=== PATIENT | male | born 1970 | race Hispanic/Latino ===

== ENCOUNTER 2019-10-15 16:32 | Emergency (ER) | payer MEDICARE, SELFPAY ==
--- NOTE | ~2019-10-15 | CT_ITS ---
EXAMINATION: CT abdomen pelvis w con DATE: 10/15/2019 18:34 INDICATION: Mid and lower left-sided abdominal pain TECHNIQUE: Computed tomography (CT) of the abdomen and pelvis was performed with 100 mL Omnipaque-350 intravenous contrast. Automated exposure control and iterative reconstruction technique were employe d. The dose-length product was 803.61 mGy-cm. COMPARISON: 11/09/2012 FINDINGS: Lung bases are clear. Heart size is normal. No pericardial or pleural effusion. Small calcific locati on a left hepatic lobe consistent with old granulomatous disease. Gallbladder, spleen, pancreas, bila teral adrenal glands and kidneys are normal. Bladder is normal. Prostatic calcifications. Small fat-c ontaining left inguinal hernia. A few scattered colonic diverticula without adjacent inflammatory fredo nge to suggest diverticulitis. Small bowel and appendix are normal. No free intraperitoneal gas or fl uid. No pathologically enlarged abdominal or pelvic lymphadenopathy. There are bridging osteophytes a t multiple levels in the lower thoracic spine, consistent with diffuse idiopathic skeletal hyperostos is (DISH). IMPRESSION: 1. No acute intra-abdominal/pelvic process. 2. Small fat-containing left inguinal hernia. Reviewed, dictated and finalized at location A.
[2019-10-15 16:39] VITALS: BP 180/89; PULSE 78; RESP 20; TEMP 36.4; O2SAT 100
--- NOTE | 2019-10-15 17:07 | ED.ABDPAIN ---
HPI - Abdominal Pain General Chief Complaint: Abdominal Pain <YO Copeland Last Filed: 10/15/19 19:08> Stated Complaint: ABD PAIN <YO Copeland Last Filed: 10/15/19 19:08> Time Seen by Provider: 10/15/19 16:56 <YO Copeland Last Filed: 10/15/19 19:08> Source: patient <YO Copeland Last Filed: 10/15/19 19:08> Mode of arrival: ambulatory <YO Copeland Last Filed: 10/15/19 19:08> Limitations: no limitations <YO Copeland Last Filed: 10/15/19 19:08> History of Present Illness HPI narrative: Patient is a 49-year-old male who presents to emergency department for evaluation of periumbilical epigastric abdominal pain that is been present now for the last 4 days and intensified in nature denies similar occurrence in the past noted 1 episode of nausea and emesis and one loose stool during the course of the illness has not been seen for this complaint has taken his home hydrocodone with minimal improvement denies constipation or URI symptoms or any rectal bleeding or melena. <YO Copeland Last Filed: 10/15/19 19:08> Related Data Home Medications: Home Medications Medication Instructions Recorded Confirmed hydrocodone-acetaminophen tablet 10/15/19 metformin mg 10/15/19 <YO Copeland Last Filed: 10/15/19 19:08> Allergies/Adverse Reactions: Allergies Allergy/AdvReac Type Severity Reaction Status Date / Time No Known Allergies Allergy Verified 10/15/19 16:41 <YO Copeland Last Filed: 10/15/19 19:08> Review of Systems Review of Systems: All systems reviewed & are unremarkable except as noted in HPI and below <YO Copeland Last Filed: 10/15/19 19:08> [facility] Past Medical History Medical History: Medical History (Updated 10/16/19 @ 00:00 by Background John) Diabetes mellitus type 2 in nonobese <YO Copeland Last Filed: 10/15/19 19:08> Surgical History Surgical History: Surgical History History of orthopedic surgery <Israel Martinez PA-C - Last Filed: 10/15/19 19:08> Family History Family History: Family History (Updated 09/26/15 @ 23:19 by DOCTOR UNKNOWN) Sibling Family history of thyroid disease Family history of diabetes mellitus in first degree relative Father Family history of diabetes mellitus in first degree relative Mother Family history of thyroid disease <Israel Martinez PA-C - Last Filed: 10/15/19 19:08> Social History Social History: Social History Smoking status: Never smoker Alcohol intake: current Substance use type: marijuana <Israel Martinez PA-C - Last Filed: 10/15/19 19:08> Exam Narrative: Exam Narrative: GENERAL: Well-appearing, well-nourished, and in no acute distress. HEAD: Normocephalic, atraumatic. EYES: PERRLA and EOMI. ENT: Nares clear, no rhinorrhea or epistaxis. Mucous membranes moist. CHEST: Clear to auscultation. No respiratory distress. No wheezes rales or rhonchi HEART: Regular rate and rhythm. No murmur heard. Normal peripheral pulses. ABDOMEN: Soft, periumbilical abdominal tenderness with voluntary guarding r, nondistended EXTREMITIES: Normal range of motion. No edema. SKIN: Warm, dry, no rash. NEURO: No focal deficits. Alert and oriented x3. PSYCH: Normal mood and affect. <Israel Martinez PA-C - Last Filed: 10/15/19 19:08> Course Course Emergency Course: Patient in the room in no distress aware of case findings treatment plan and diagnosis agreeing to follow-up with primary care and gastroenterology given fluids and medications with relief afebrile nontoxic-appearing felt appropriate for discharge home <Israel Martinez PA-C - Last Filed: 10/15/19 19:08> Vital Signs Vital signs: Vital Signs Temperature
[2019-10-15] MEDS: SODIUM CHLORIDE 0.9% IV 1,000 ML 999 ML IV CONT (17:24)
[2019-10-15] MEDS: FAMOTIDINE 20 MG/2 ML VIAL IV PUSH (17:25)
[2019-10-15 17:43] LABS: Basophils Percent Auto 0.5 % (0.2-1.2); Eosinophils Absolute Auto 0.2 K/mm3 (0-0.3); Eosinophils Percent Auto 1.7 % (0-4.4); Hematocrit 46.3 % (42.0-52.0); Hemoglobin 16.3 g/dL (14.0-18.0); Immature Granulocyte Absolute 0.03 K/mm3 (0.00-0.031); Immature Granulocyte Percent A 0.3 % (0-0.5); Lymphocytes Absolute Auto 2.52 K/mm3 (0.9-3.2); Lymphocytes Percent Auto 29.3 % (18.3-44.2); Mean Corpuscular HGB Conc 35.2 g/dl (32-36); Mean Corpuscular Hemoglobin 29.6 pg (26-34); Mean Platelet Volume 10.6 fl (7.4-10.4); Monocytes Absolute Auto 0.6 K/mm3 (0.1-0.6); Monocytes Percent Auto 7.3 % (2.6-8.5); Neutrophils Absolute Auto 5.2 K/mm3 (1.3-6.7); Neutrophils Percent Auto 60.9 % (45.5-73.1); Platelet Count Result 216 k/mm3 (150-375); Red Blood Count 5.51 M/mm3 (4.6-6.20); Red Cell Distribution Width 12.2 % (11.5-14.5); White Blood Count 8.6 K/mm3 (4.5-10.0)
[2019-10-15 17:43] LABS: Add Urine Microscopic? YES; Appearance Urine Clear (Clear); Bilirubin Urine Negative (Negative); Blood Urine Negative (Negative); Color Urine Yellow (Yellow); Glucose Urine UA 3+ mg/dL (Negative); Ketones Urine Trace mg/dL (Negative); Leukocyte Esterase Ur Negative LEU/UL (Negative); Nitrate Urine Negative (Negative); Protein Urine Negative (Negative); RBC Urine 0-2 /hpf (0-2); Specific Grav Ur 1.027 (1.001-1.035); Urobilinogen Urine Negative mg/dL (<2.0); WBC Urine 0-3 /hpf
[2019-10-15 17:51] LABS: Alanine Aminotransferase 28 U/L (4-50); Albumin Level 4.6 g/dL (3.5-5.1); Alkaline Phosphatase 110 U/L (38-126); Anion Gap 10 mmol/L (8-16); Aspartate Amino Transferase 26 U/L (17-59); Bilirubin,Total 0.2 mg/dL (0.2-1.3); Blood Urea Nitrogen 17 mg/dL (9-20); Calcium 9.4 mg/dL (8.4-10.2); Carbon Dioxide 26 mmol/L (22-30); Chloride 99 mmol/L (98-107); Estimated CRCL calculation 113 ml/min; Estimated Glomerular Filt Rate > 60; Glucose 224 mg/dL (75-110); Lipase 63 U/L (23-300); Potassium 4.1 mmol/L (3.4-5.0); Sodium 135 mmol/L (137-145)
[2019-10-15 18:38] VITALS: BP 174/87; PULSE 71; RESP 18; O2SAT 100
[2019-10-15 19:26] VITALS: BP 147/89; PULSE 74; RESP 18; O2SAT 99
== END 2019-10-15 19:30 | disposition home or self-care (01) ==
PROVIDERS: Emergency Medicine Emergency Medical Services; Emergency Provider Emergency Medicine; PCP Internal Medicine
DX: R10.84 Generalized abdominal pain (principal); E11.9 Type 2 diabetes mellitus without complications; Z79.84 Long term (current) use of oral hypoglycemic drugs
CPT/HCPCS: 36415; 74177; 80053; 81001; 83690; 85025; 96365; 96375; 99284; J0131; J7030; Q9967

== ENCOUNTER 2019-10-18 16:18 | Emergency (ER) | payer MEDICARE, SELFPAY ==
[2019-10-18 16:20] VITALS: BP 196/106; PULSE 77; RESP 16; TEMP 36.4; O2SAT 100
[2019-10-18 16:34] LABS: Basophils Percent Auto 0.5 % (0.2-1.2); Eosinophils Absolute Auto 0.1 K/mm3 (0-0.3); Eosinophils Percent Auto 1.7 % (0-4.4); Hematocrit 43.1 % (42.0-52.0); Hemoglobin 15.2 g/dL (14.0-18.0); Immature Granulocyte Absolute 0.03 K/mm3 (0.00-0.031); Immature Granulocyte Percent A 0.4 % (0-0.5); Lymphocytes Absolute Auto 2.82 K/mm3 (0.9-3.2); Lymphocytes Percent Auto 34.3 % (18.3-44.2); Mean Corpuscular HGB Conc 35.3 g/dl (32-36); Mean Corpuscular Hemoglobin 29.6 pg (26-34); Mean Corpuscular Volume 83.9 fl (80-100); Mean Platelet Volume 10.9 fl (7.4-10.4); Monocytes Absolute Auto 0.6 K/mm3 (0.1-0.6); Monocytes Percent Auto 7.4 % (2.6-8.5); Neutrophils Absolute Auto 4.6 K/mm3 (1.3-6.7); Neutrophils Percent Auto 55.7 % (45.5-73.1); Platelet Count Result 190 k/mm3 (150-375); Red Blood Count 5.14 M/mm3 (4.6-6.20); Red Cell Distribution Width 11.9 % (11.5-14.5); White Blood Count 8.2 K/mm3 (4.5-10.0)
--- NOTE | 2019-10-18 16:44 | ECG_ITS ---
Measurements Intervals [place] Rate: 68 P: 4 [place]: 195 QRS: -27 QRSD: 108 T: -9 QT: 373 QTc: 398 Interpretive Statements SINUS RHYTHM INCOMPLETE RIGHT BUNDLE BRANCH BLOCK VOLTAGE CRITERIA FOR LVH BORDERLINE T WAVE ABNORMALITY- INFERIOR LEADS BORDERLINE ECG Electronically Signed On 10-18-2019 19:43:08 CDT by Sean Tellez D.O.
--- NOTE | 2019-10-18 16:46 | ED.ABDPAIN ---
HPI - Abdominal Pain General Chief Complaint: Abdominal Pain Stated Complaint: epigastric pain Time Seen by Provider: 10/18/19 16:35 Source: patient Mode of arrival: ambulatory Limitations: no limitations History of Present Illness HPI narrative: This patient is a 49 year old male who presents for evaluation of of epigastric abdominal pain. He reports constant epigastric abdominal pain for 1 week. He states he feels like there is a knot in his stomach. He has been having nausea and he had one episode of vomiting today. His reports fluctuating with diarrhea and constipation. He denies fever or chills. He was evaluated in ER 4 days ago for this symptom. He had labs and CT scan to evaluate symptoms. He was discharged home with mokanelalo , and he is suppose to follow up with Dr. Clayton. Related Data Home Medications Medication Instructions Recorded Confirmed hydrocodone-acetaminophen tablet 10/15/19 metformin mg 10/15/19 Allergies Allergy/AdvReac Type Severity Reaction Status Date / Time No Known Allergies Allergy Verified 10/18/19 16:27 Review of Systems Review of Systems: All systems reviewed & are unremarkable except as noted in HPI and below Constitutional: Constitutional: Denies chills and Denies fever(s) Cardiovascular: Cardiovascular: Denies chest pain and Denies rapid heart rate Respiratory: Respiratory: Denies cough Gastrointestinal: Gastrointestinal: Reports abdominal pain, Reports constipation, Reports diarrhea, Reports nausea and Reports vomiting PMFSH Past Medical History Medical History (Updated 10/18/19 @ 18:06 by Anjali York MD) Diabetes mellitus type 2 in nonobese Family History Family History (Updated 09/26/15 @ 23:19 by DOCTOR UNKNOWN) Sibling Family history of thyroid disease Family history of diabetes mellitus in first degree relative Father Family history of diabetes mellitus in first degree relative Mother Family history of thyroid disease Social History Social History Smoking status: Never smoker Alcohol intake: current Substance use type: marijuana Gender identity (if verbalized by the patient): Male Exam Narrative: Exam Narrative: GENERAL: Well-appearing, well-nourished, and in no acute distress. HEAD: Normocephalic, atraumatic EYES: EOMI, conjunctiva clear without discharge THROAT:Mucous membranes moist, Oropharynx normal without erythema, exudate, peritonsillar swelling or fluctuance NECK: Supple, without lymphadenopathy or mass RESPIRATORY: No respiratory distress, Airway patent, Respirations non-labored, Clear to auscultation without rales, rhonchi or wheeze HEART: Regular rate and rhythm. No murmur heard. Normal peripheral pulses. ABDOMEN: Soft, epigastric tenderness, nondistended, normal active bowel sounds. No masses. No rebound or guarding, No organomegaly. EXTREMITIES: No edema, normal strength with full range of motion. SKIN: Warm, dry, normal color without rash NEURO: Alert and oriented x3. CN 2-12 grossly intact. No focal deficits. PSYCH: Normal mood and affect. Course Reevaluation(s) Reevaluation #1: PAtient states he feels better. He has no abdominal pain. I discussed with patient that labs are unremarkable other than hyperglycemia. No AGAP to suggest DKA. His pain resolved after GI cocktail. I reviewed labs and CT from last ER visit/ CT was unremarkable. He was started on pepcid. Date: 10/18/19 Time: 18:01 Reevaluation #2: Nursing staff reports patient is complaining of nausea but he did not vomit. Will order reglan Date: 10/18/19 Time: 18:14 Vital Signs Vital signs: Vital Signs Temperature 97.5 F L 10/18/19 16:20 Pulse Rate 77 10/18/19 16:20 Respiratory Rate 16 10/18/19 16:20 Blood Pressure 196/106 H 10/18/19 16:20 Pulse Oximetry 100 10/18/19 16:20 Temperature 97.5 F L 10/18/19 16:20 Pulse Rate 61 10/18/19 19:15 Respir
[2019-10-18] MEDS: ONDANSETRON INJ 4 MG/2 ML VIAL IV PUSH (16:48)
[2019-10-18] MEDS: PANTOPRAZOLE SODIUM IV 40 MG VIAL IV PUSH (16:48)
[2019-10-18 16:49] LABS: Alanine Aminotransferase 29 U/L (4-50); Albumin Level 4.6 g/dL (3.5-5.1); Alkaline Phosphatase 111 U/L (38-126); Anion Gap 9 mmol/L (8-16); Aspartate Amino Transferase 25 U/L (17-59); Bilirubin,Total 0.5 mg/dL (0.2-1.3); Blood Urea Nitrogen 12 mg/dL (9-20); Calcium 9.3 mg/dL (8.4-10.2); Carbon Dioxide 27 mmol/L (22-30); Chloride 98 mmol/L (98-107); Estimated CRCL calculation 111 ml/min; Estimated Glomerular Filt Rate > 60; Glucose 334 mg/dL (75-110); Lipase 91 U/L (23-300); Potassium 4.2 mmol/L (3.4-5.0); Sodium 134 mmol/L (137-145)
[2019-10-18] MEDS: BELLADONNA ALK/PHENOB ELIX 10 ML, MAG HYDROX/ALUMINUM HYD/SIMETH 30 ML, LIDOCAINE HCL 2... PO (17:05)
[2019-10-18 17:36] LABS: Add Urine Microscopic? YES; Appearance Urine Clear (Clear); Bilirubin Urine Negative (Negative); Blood Urine Negative (Negative); Color Urine Straw (Yellow); Glucose Urine UA 3+ mg/dL (Negative); Ketones Urine Negative (Negative); Leukocyte Esterase Ur Negative LEU/UL (Negative); Nitrate Urine Negative (Negative); Protein Urine Negative (Negative); RBC Urine 0-2 /hpf (0-2); Specific Grav Ur 1.018 (1.001-1.035); Urobilinogen Urine Negative mg/dL (<2.0)
[2019-10-18] MEDS: METOCLOPRAMIDE HCL INJ 10 MG/2 ML VIAL IV PUSH (18:22)
--- NOTE | 2019-10-18 18:32 | PC.NURSE ---
when attempting to dc the pt, pt c/o of nausea, stating that he wants to puke provider aware, orders received for reglan and given to pt will reassess
[2019-10-18 18:42] LABS: Troponin I < 0.012 ng/mL (0.000-0.034)
[2019-10-18 19:15] VITALS: BP 122/72; PULSE 61; RESP 20; O2SAT 100
== END 2019-10-18 19:20 | disposition home or self-care (01) ==
PROVIDERS: Emergency Medicine; Emergency Provider General Practice; PCP Internal Medicine
DX: R10.13 Epigastric pain (principal); E11.65 Type 2 diabetes mellitus with hyperglycemia; Z79.84 Long term (current) use of oral hypoglycemic drugs; I45.10 Unspecified right bundle-branch block; R94.31 Abnormal electrocardiogram [ECG] [EKG]
CPT/HCPCS: 36415; 80053; 81001; 83690; 84484; 85025; 93005; 96374; 96375; 99284; A9270; C9113; J2405; J2765

== ENCOUNTER 2019-11-05 01:08 | Outpatient (CLI) | payer MEDICARE, SELFPAY ==
[2019-11-05 16:32] LABS: SARS-CoV-2 RNA PCR Negative
== END 2019-11-05 01:09 | disposition home or self-care (01) ==
LOC: ANHCOVIDDT 01:08
PROVIDERS: PCP Internal Medicine; Visit Provider Internal Medicine Gastroenterology
DX: Z01.812 Encounter for preprocedural laboratory examination (principal); Z20.828 Contact with and (suspected) exposure to other viral communicable diseases
CPT/HCPCS: 87635; C9803; U0003

== ENCOUNTER 2019-11-07 00:46 | Day surgery (SDC) | payer MEDICARE, SELFPAY ==
[2019-10-26 15:21] VITALS: BMI 32.3
[2019-11-07 11:10] VITALS: BP 153/94; PULSE 77; RESP 18; TEMP 36.7; O2SAT 100
[2019-11-07] MEDS: LACTATED RINGERS 1,000 ML 150 ML IV CONT (11:13)
[2019-11-07 11:25] LABS: Glucose Point of Care 140 (65-105)
--- NOTE | 2019-11-07 11:31 | WPDANESEPPF ---
Anes - Initial Pre Proc Eval Procedure: Operation Date: 11/07/19 13:00 Proposed Procedures p Esophagogastroduodenoscopy - Max George MD Date/Time: 11/07/19 11:31 Surgeon: Max George MD Pre Op Diagnosis: Abdomen Melinda Patient Data Age: 49 Gender: M Height: 5 ft 5 in Weight: 85.4 kg Last Vital Signs Temp 36.7 C 11/07/19 11:10 Pulse 77 11/07/19 11:10 Resp 18 11/07/19 11:10 BP 153/94 H 11/07/19 11:10 Pulse Ox 100 11/07/19 11:10 Allergies Allergy/AdvReac Type Severity Reaction Status Date / Time No Known Allergies Allergy Verified 10/26/19 15:17 Home Medications Medication Instructions Recorded Confirmed Type hydrocodone-acetaminophen 1 - 2 tablet PO QID PRN 10/15/19 10/26/19 History hyoscyamine sulfate [Levsin] 0.125 mg PO QID PRN #10 tablet 10/15/19 10/26/19 Rx metformin 1,000 mg PO BID 10/15/19 10/26/19 History Laboratory Tests 11/07/19 11:21 POC Capillary Glucose 140 mg/dl H mg/dl (65-105) Patient hx anesthesia problems: none Family hx anesthesia problems: none PMFSH Past Medical History Medical History Diabetes mellitus type 2 in nonobese Epigastric pain Nausea and vomiting in adult Surgical History Surgical History History of orthopedic surgery Family History Family History Sibling Family history of thyroid disease Family history of diabetes mellitus in first degree relative Father Family history of diabetes mellitus in first degree relative Mother Family history of thyroid disease Social History Social History Smoking status: Never smoker Second hand tobacco smoke exposure: No Alcohol intake: current Substance use: current Substance use type: marijuana and prescription drug Other substance usage details: MEDICAL MARIJUANA CARD- FOR SLEEP AT NIGHT Last use: NIGHTLY Living arrangements: with family Gender identity (if verbalized by the patient): Male Spiritual care concerns: No Anes - Eval Final PreProcedure Day of Procedure 11/07/19 11:31 Patient weight: obese Heart: regular rate and rhythm Lungs: decreased breath sounds Airway: Mallampati scale class II Neurological: alert and oriented Last oral intake: >/= 8 hours ASA classification: III Emergent: no Anesthetic plan: proceed Anesthesia type and monitoring: general GIVS and standard monitoring Informed Consent: The patient's anesthetic plan and its attendant risks and benefits were discussed with the patient/family/POA. Questions were solicited and answers provided to the satisfaction of the patient/family/POA.
--- NOTE | 2019-11-07 13:15 | PM.HPGS ---
History of Present Illness History of Present Illness Consent: Risks, benefits, and alternatives have been discussed and questions answered. Patient agrees to proceed with procedure. Chief complaint: Abdomen Melinda Narrative: Cam Hernandez is a 49 year old male with h/o DM here with nausea and intermittent abdominal pain Review of Systems Constitutional: Constitutional: Denies headache(s) and Denies weakness Eyes: Eyes: Denies blurry vision ENT: Reports Normal hearing present, Denies headache(s) and Denies neck pain Cardiovascular: Cardiovascular: Denies chest pain and Denies dyspnea Respiratory: Respiratory: Denies dyspnea Gastrointestinal: Gastrointestinal: Reports no additional gastrointestinal complaints Genitourinary: Genitourinary: Denies dysuria Musculoskeletal: Musculoskeletal: Denies neck pain Integumentary/Breasts: Skin/Breast: Denies dry skin Neurologic: Reports Normal hearing present, Denies headache(s) and Denies weakness Psychiatric: Psychiatric: Denies anxiety Endocrine: Endocrine: Denies change in body appearance Hematologic/Lymphatic: Hematologic/Lymphatic: Denies easy bleeding Allergic/Immunologic: Allergic/Immunologic: Denies urticaria PMFSH Past Medical History Medical History Diabetes mellitus type 2 in nonobese Epigastric pain Nausea and vomiting in adult Surgical History Surgical History History of orthopedic surgery Family History Family History Sibling Family history of thyroid disease Family history of diabetes mellitus in first degree relative Father Family history of diabetes mellitus in first degree relative Mother Family history of thyroid disease Social History Social History Smoking status: Never smoker Second hand tobacco smoke exposure: No Alcohol intake: current Substance use: current Substance use type: marijuana and prescription drug Other substance usage details: MEDICAL MARIJUANA CARD- FOR SLEEP AT NIGHT Last use: NIGHTLY Living arrangements: with family Gender identity (if verbalized by the patient): Male Spiritual care concerns: No Meds Home Medications and Allergies Home Medications Medication Instructions Recorded Confirmed Type hydrocodone-acetaminophen 1 - 2 tablet PO QID PRN 10/15/19 10/26/19 History hyoscyamine sulfate [Levsin] 0.125 mg PO QID PRN #10 tablet 10/15/19 10/26/19 Rx metformin 1,000 mg PO BID 10/15/19 10/26/19 History Allergies Allergy/AdvReac Type Severity Reaction Status Date / Time No Known Allergies Allergy Verified 10/26/19 15:17 Vital Signs Vital Signs - 24 hr 11/07/19 11:10 Temperature 98.1 F Pulse Rate 77 Respiratory Rate 18 Blood Pressure 153/94 H Pulse Oximetry 100 Exam Const: General: comfortable and no acute distress HENMT: General nose exam: Normal nares present Eyes: General: appearance normal, both eyes and all related structures Neck: Neck: no JVD Resp: Auscultation: clear to auscultation bilaterally Cardio: Rate: regular rate Rhythm: regular rhythm GI: Inspection: non-distended GI Palp: Yes Soft to palpation Skin: General skin exam: normal color Neuro: General: gait normal Speech: normal speech Extrem: General: normal to inspection Psych: Mental Status: mental status grossly normal Assessment and Plan Assessment and plan (1) Epigastric pain: Code(s): R10.13 - Epigastric pain Status: Acute Assessment and Plan: will assess with egd (2) Diabetes mellitus type 2 in nonobese: Code(s): E11.9 - Type 2 diabetes mellitus without complications Status: Acute (3) Nausea and vomiting in adult: Code(s): R11.2 - Nausea with vomiting, unspecified Status: Acute
[2019-11-07 13:35] VITALS: BP 143/97; PULSE 87; RESP 27; O2SAT 100
[2019-11-07 13:45] VITALS: BP 139/92; PULSE 78; RESP 30; O2SAT 98
[2019-11-07 13:55] VITALS: BP 141/91; PULSE 68; RESP 28; O2SAT 100
== END 2019-11-07 14:11 | disposition home or self-care (01) ==
PROVIDERS: PCP Internal Medicine; Visit Provider Internal Medicine Gastroenterology
PROC: 0DJ08ZZ Inspection of Upper Intestinal Tract, Via Natural or Artificial Opening Endoscopic (ICD-10-PCS; CPT 43235; principal; 2019-11-07 13:00)
DX: K29.50 Unspecified chronic gastritis without bleeding (principal); E11.9 Type 2 diabetes mellitus without complications; Z79.84 Long term (current) use of oral hypoglycemic drugs; E66.9 Obesity, unspecified; Z68.31 Body mass index [BMI] 31.0-31.9, adult
CPT/HCPCS: 43239; 88305; J2704; J7120

== ENCOUNTER 2019-12-17 00:39 | Outpatient (CLI) | payer MEDICARE, SELFPAY ==
[2019-12-17 17:41] LABS: SARS-CoV-2 RNA PCR Negative
== END 2019-12-17 00:40 | disposition home or self-care (01) ==
LOC: ANHCOVIDDT 00:39
PROVIDERS: PCP Internal Medicine; Visit Provider Surgery
DX: Z01.812 Encounter for preprocedural laboratory examination (principal); Z20.828 Contact with and (suspected) exposure to other viral communicable diseases
CPT/HCPCS: 87635; C9803; U0003

== ENCOUNTER 2019-12-17 08:04 | Outpatient (CLI) | payer MEDICARE, SELFPAY ==
[2019-12-17 08:49] LABS: Anion Gap 9 mmol/L (8-16); Blood Urea Nitrogen 17 mg/dL (9-20); Calcium 9.4 mg/dL (8.4-10.2); Carbon Dioxide 30 mmol/L (22-30); Chloride 100 mmol/L (98-107); Estimated Glomerular Filt Rate > 60; Glucose 212 mg/dL (75-110); Potassium 4.1 mmol/L (3.4-5.0); Sodium 139 mmol/L (137-145)
== END 2019-12-17 08:05 | disposition home or self-care (01) ==
PROVIDERS: Anesthesiology; PCP Internal Medicine; Visit Provider Surgery
DX: K40.90 Unilateral inguinal hernia, without obstruction or gangrene, not specified as recurrent (principal); E11.9 Type 2 diabetes mellitus without complications
CPT/HCPCS: 36415; 80048; 86850; 86900; 86901; 87635; C9803; U0003

== ENCOUNTER 2019-12-19 02:25 | Day surgery (SDC) | payer MEDICARE, SELFPAY ==
[2019-12-07 11:22] VITALS: BMI 33.3
--- NOTE | 2019-12-18 13:25 | P.PNAN_ITS ---
Anes - Initial Pre Proc Eval Procedure: Operation Date: 12/19/19 07:30 Proposed Procedures p Laparoscopic Left Inguinal Hernia Repair With Mesh, Davinci Assisted - Arik Castaneda DO Date/Time: 12/18/19 13:25 Surgeon: Arik Castaneda DO Pre Op Diagnosis: Left Inguinal Hernia Patient Data Age: 49 Gender: M Height: 1.63 m Weight: 88 kg Allergies Allergy/AdvReac Type Severity Reaction Status Date / Time No Known Allergies Allergy Verified 12/07/19 11:22 Home Medications Medication Instructions Recorded Confirmed Type hydrocodone-acetaminophen 1 - 2 tablet PO QID PRN 10/15/19 12/07/19 History metformin 1,000 mg PO BID 10/15/19 12/07/19 History ECG: Date of Service: 10/18/19 Procedure(s): CA 12 lead EKG Accession Number(s): [id number] cc: ~ Measurements Intervals [place] Rate: 68 P: 4 [place]: 195 QRS: -27 QRSD: 108 T: -9 QT: 373 QTc: 398 Interpretive Statements SINUS RHYTHM INCOMPLETE RIGHT BUNDLE BRANCH BLOCK VOLTAGE CRITERIA FOR LVH BORDERLINE T WAVE ABNORMALITY- INFERIOR LEADS BORDERLINE ECG Electronically Signed On 10-18-2019 19:43:08 CDT by Sean Tellez D.O. Dictated By: Sean Tellez DO 10/18/19 [id number] Patient hx anesthesia problems: none Family hx anesthesia problems: none PMFSH Past Medical History Medical History (Updated 12/18/19 @ 13:26 by Kevin Armijo MD) Chronic GERD Diabetes mellitus type 2 in nonobese Epigastric pain Nausea and vomiting in adult Obesity Surgical History Surgical History History of back surgery History of esophagogastroduodenoscopy (EGD) 11/07/19 History of orthopedic surgery Family History Family History Sibling Family history of thyroid disease Family history of diabetes mellitus in first degree relative Father Family history of diabetes mellitus in first degree relative Mother Family history of thyroid disease Social History Social History Smoking status: Never smoker Second hand tobacco smoke exposure: No Alcohol intake: current Drinks per week: 3 Substance use: current Substance use type: marijuana Other substance usage details: MEDICAL MARIJUANA CARD- FOR SLEEP AT NIGHT Last use: DAILY MARIJUANA USE Gender identity (if verbalized by the patient): Male Spiritual care concerns: No Anes - Eval Final PreProcedure Day of Procedure 12/18/19 13:25 Patient weight: obese Heart: regular rate and rhythm Lungs: clear to auscultation and normal air movement Airway: Mallampati scale class II Neurological: alert and oriented Last oral intake: >/= 8 hours ASA classification: III Emergent: no Anesthetic plan: proceed Anesthesia type and monitoring: general ETT Informed Consent: The patient's anesthetic plan and its attendant risks and benefits were discussed with the patient/family/POA. Questions were solicited and answers provided to the satisfaction of the patient/family/POA.
[2019-12-19] VITALS (9 sets, daily range): BP systolic 129–175; BP diastolic 77–95; PULSE 76–115; RESP 18–20; TEMP 36.2–36.6; O2SAT 98–100
[2019-12-19] MEDS: LACTATED RINGERS 1,000 ML 30 ML IV CONT ×2 (06:50→08:41)
[2019-12-19] MEDS: KETOROLAC 15 MG/ML VIAL (*BKC) IV PUSH (07:02)
[2019-12-19] MEDS: ACETAMINOPHEN 500 MG TABLET 1000 MG PO (07:02)
--- NOTE | 2019-12-19 07:10 | PM.IMHP ---
H&P: HPI History of Present Illness Date/Time: 12/19/19 07:10 Chief complaint: Left Inguinal Hernia Narrative: Cam Hernandez is a 49 year old male presents for left inguinal hernia repair. He has been experiencing pain with activity for several months. Review of Systems Review of Systems: All systems reviewed & are unremarkable except as noted in HPI and below Constitutional: Constitutional: Denies chills, Denies fever(s), Denies headache(s) and Denies weight loss Eyes: Eyes: Denies change in vision ENT: Denies dizziness, Denies headache(s), Denies neck mass and Denies throat swelling Cardiovascular: Cardiovascular: Denies chest pain, Denies lightheadedness and Denies dyspnea Respiratory: Respiratory: Denies cough, Denies dyspnea and Denies wheezing Gastrointestinal: Gastrointestinal: Denies abdominal pain, Denies change in bowel habits, Denies nausea and Denies vomiting Genitourinary: Genitourinary: Denies hematuria and Denies dysuria Musculoskeletal: Musculoskeletal: Reports as per HPI Integumentary/Breasts: Skin/Breast: Reports as per HPI Neurologic: Denies dizziness and Denies headache(s) Allergic/Immunologic: Allergic/Immunologic: Denies throat swelling and Denies wheezing PMFSH Past Medical History Medical History Chronic GERD Diabetes mellitus type 2 in nonobese Epigastric pain Nausea and vomiting in adult Obesity Surgical History Surgical History History of back surgery History of esophagogastroduodenoscopy (EGD) 11/07/19 History of orthopedic surgery Family History Family History Sibling Family history of thyroid disease Family history of diabetes mellitus in first degree relative Father Family history of diabetes mellitus in first degree relative Mother Family history of thyroid disease Social History Social History Smoking status: Never smoker Second hand tobacco smoke exposure: No Alcohol intake: current Drinks per week: 3 Substance use: current Substance use type: marijuana Other substance usage details: MEDICAL MARIJUANA CARD- FOR SLEEP AT NIGHT Last use: DAILY MARIJUANA USE Gender identity (if verbalized by the patient): Male Spiritual care concerns: No Meds Home Medications and Allergies Home Medications Medication Instructions Recorded Confirmed Type hydrocodone-acetaminophen 1 - 2 tablet PO QID PRN 10/15/19 12/07/19 History metformin 1,000 mg PO BID 10/15/19 12/07/19 History Allergies Allergy/AdvReac Type Severity Reaction Status Date / Time No Known Allergies Allergy Verified 12/07/19 11:22 Exam Const: General: no acute distress and alert Orientation/consciousness: patient oriented x3 HENMT: Head: normocephalic and atraumatic Ears: hearing grossly normal bilaterally General nose exam: Normal nares present Mouth: Yes Normal oral and palatal mucosa present Eyes: Periorbital: periorbital findings normal Sclera: sclerae normal EOM: EOMs intact bilaterally Neck: Neck: normal visual inspection, no lymphadenopathy and trachea midline Chest: Chest palpation & inspection: normal inspection of the chest Resp: Effort & Inspection: normal respiratory effort Auscultation: clear to auscultation bilaterally Cardio: Jugular venous distension: no JVD Rate: regular rate Rhythm: regular rhythm Heart sounds: S1 normal heart sound present and S2 normal heart sound present Peripheral pulses: Peripheral pulses 2+ throughout GI: Inspection: normal to inspection GI Palp: Yes Soft to palpation, No Tenderness to palpation present (GI), No Guarding due to palpation present (GI), Yes Hernia present (small reducible LIH) and No Rebound tenderness present Percussion: Yes normal to percussion Auscultation: normal bowel sounds
[2019-12-19 07:11] LABS: Glucose Point of Care 184 (65-105)
--- NOTE | 2019-12-19 07:12 | WPDHPUPDATE1 ---
History and Physical Update Update Date/Time: 12/19/19 07:12 History and Physical has been reviewed, including an updated exam of the patient. There are NO changes in the patient's condition. Risks, benefits, and alternatives have been discussed and questions answered. Patient agrees to proceed with procedure.
[2019-12-19] MEDS: ceFAZolin 2 GM/D5W 50 ML 2 GM/50 ML BAG IVPB (07:20)
[2019-12-19] MEDS: BUPIVACAINE/EPINEPHRINE 0.5% 10 ML VIAL 30 ML INFILTRATE (08:01)
--- NOTE | 2019-12-19 08:31 | PM.PROC ---
Procedure Note - Detailed Date of procedure: 12/19/19 Pre-op diagnosis: Left Inguinal Hernia Post-op diagnosis: same (Indirect LIH) Procedure performed: Laparoscopic left inguinal hernia repair with Progrip mesh, da Benito assisted Description of procedure: Procedure as well as risks, benefits, and alternatives were discussed with the patient. Written consent was obtained and placed in chart prior to procedure. Patient was brought back to surgical suite. He was placed supine on operating table. Time-out was done to confirm patient and procedure. He was then intubated by Anesthesia Department. His abdomen was prepped and draped in sterile fashion using chlorhexidine prep. 0.5% bupivacaine with epinephrine was infiltrated at each location for incision. An 8 mm incision was made in the left lateral abdomen, and a 5 mm Optiview trocar was advanced through the abdominal layers under direct visualization. Once inside the abdominal cavity, carbon dioxide insufflation was used to create a pneumoperitoneum. A camera was inserted and the abdominal cavity was inspected. The patient was placed in slight Trendelenburg position. An 8 millimeter incision was made on the right lateral abdomen and an 8 millimeter trocar was inserted under direct visualization. Another 8 millimeter incision was made just superior to the umbilicus and an 8 millimeter trocar was inserted under direct visualization. The 5 mm port was then removed and this was replaced with another 8 mm robotic port. The robotic arms were brought up to the patient's bedside and secured to the ports. The camera and instruments were inserted. I then moved over to the robotic console and took control of the camera and instruments. After careful inspection of the abdominal cavity, I began scoring the peritoneum along the left lower quadrant using scissors with electrocautery. The preperitoneal plane was entered and this was carefully dissected caudally along the inferior epigastric vessels. Careful dissection with scissors with electrocautery and blunt dissection was used to continue this dissection. I dissected far enough laterally to allow for mesh placement, and also dissected medially to identify the pubic arch and Ant's ligament. The hernia sac was identified and carefully dissected posteriorly. The cord contents were also identified and the peritoneum was carefully dissected far enough posteriorly to allow for mesh placement. Once an adequate pocket was created, I then placed the mesh within the preperitoneal pocket and carefully unfolded it. The mesh was centered on the hernia defect with adequate overlap circumferentially. The inferior edge of the mesh was inspected to ensure that it was far enough away from the peritoneal edge. The mesh appeared in proper position overlying the entire myopectineal orifice. The peritoneum was then closed over the mesh using a 3-0 V-lock running absorbable suture. The robotic instruments were removed. The robotic arms were disengaged from the ports and moved away from the bedside. The patient was flattened out in bed, the ports were removed under direct visualization, and the pneumoperitoneum was released. The skin of the incisions was approximated using 4-0 Monocryl subcuticular suture, and Exofin glue was applied on top. The patient was awakened from anesthesia, extubated, and transferred to recovery. Implants: Progrip Mesh 10cm x 15cm Anesthesia: GETA and local (0.5% bupivicaine with epi) Surgeon: Arik Castaneda DO Estimated blood loss (mL): 5 Drains: No Packing: No Pathology: none sent Complications: No immediate complications Condition: stable Disposition: same day Findings: 49 y/o male presents with complaints of mid-left sided abdominal pain.He has gone to ER twice. He reports it as feeling there is a knot in his stomach. This has been associated with nausea & vomiting. CT abdomen/pelvis was performed at his first ER visit which showed small fat c
[2019-12-19 08:51] LABS: Glucose Point of Care 178 (65-105)
[2019-12-19] MEDS: fentaNYL CITRATE INJ (*CRX) 100 MCG/2 ML VIAL 25 MCG IV PUSH ×4 (08:55→09:06)
[2019-12-19] MEDS: HYDROmorphone HCL INJ (*CRX) 1 MG/ML SYR 0.25 MG IV PUSH ×4 (09:13→09:30)
[2019-12-19] MEDS: oxyCODONE HCL (*CRX) 5 MG TAB IR PO (10:21)
== END 2019-12-19 11:02 | disposition home or self-care (01) ==
PROVIDERS: PCP Internal Medicine; Visit Provider Surgery
PROC: 8E0Y4CZ Robotic Assisted Procedure of Lower Extremity, Percutaneous Endoscopic Approach (ICD-10-PCS; CPT 49650; principal; 2019-12-19 07:30)
DX: K40.90 Unilateral inguinal hernia, without obstruction or gangrene, not specified as recurrent (principal); E11.9 Type 2 diabetes mellitus without complications; K21.9 Gastro-esophageal reflux disease without esophagitis; E66.9 Obesity, unspecified; Z68.32 Body mass index [BMI] 32.0-32.9, adult; F12.90 Cannabis use, unspecified, uncomplicated; Z79.84 Long term (current) use of oral hypoglycemic drugs
CPT/HCPCS: 49650; S2900; A9270; C1781; J0330; J0690; J1100; J1170; J1885; J2250; J2405; J2704; J2710; J3010; J7030; J7120

== ENCOUNTER 2020-01-14 21:16 | Emergency (ER) | payer MEDICARE, SELFPAY ==
--- NOTE | ~2020-01-14 | XR_ITS ---
EXAMINATION: XR shoulder LT min 2V DATE: 01/14/2020 21:42 INDICATION: Left anterior shoulder pain and swelling post fall TECHNIQUE: AP, AP oblique and transscapular Y views of the left shoulder were obtained. COMPARISON: 06/06/2018 FINDINGS: Again seen is widening of the acromioclavicular joint space likely related to prior distal clavicle r esection. Alignment is otherwise normal. No fracture. Mild glenohumeral osteoarthritis. There is some hypertrophic change along the greater tuberosity. Soft tissues are unremarkable. Visualized portions of the lungs are clear. IMPRESSION: Chronic widening of the left acromioclavicular joint space likely related to prior distal clavicle re section. No acute osseous abnormality. Reviewed, dictated and finalized at [facility]. 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 No acute osseous abnormality.
[2020-01-14 21:24] VITALS: BP 187/82; PULSE 83; RESP 18; TEMP 36.2; O2SAT 100
--- NOTE | 2020-01-14 21:26 | ED.UPPEXIN ---
HPI - Extremity Injury (Upper) General Chief Complaint: Extremity Injury, Upper Stated Complaint: fall/l shoulder injury Time Seen by Provider: 01/14/20 21:26 Source: patient Mode of arrival: ambulatory Limitations: no limitations History of Present Illness HPI narrative: Patient is a 49-year-old male who presents for evaluation of left upper extremity injury. Patient reportedly was going down a flight of steps, when he slipped, falling onto concrete steps. Injuring his left shoulder and left elbow. Patient has a history of bilateral rotator cuff surgery several years ago. He denies any history of previous injury otherwise. He reports dull, aching left upper shoulder pain. He is able to move his elbow without any difficulty as well as his left wrist. Patient is right-hand dominant. He denies any numbness or weakness. Pain is moderate, aggravated with motion. Patient denies any head trauma or loss of consciousness. Related Data Home Medications Medication Instructions Recorded Confirmed hydrocodone-acetaminophen 1 - 2 tablet PO QID PRN 10/15/19 12/19/19 metformin 1,000 mg PO BID 10/15/19 12/19/19 amitriptyline 25 mg PO HS 01/14/20 01/14/20 Allergies Allergy/AdvReac Type Severity Reaction Status Date / Time No Known Allergies Allergy Verified 01/14/20 21:26 Review of Systems Review of Systems: Narrative: CONSTITUTIONAL: Denies fever CARDIOVASCULAR: Denies chest pain RESPIRATORY: Denies cough or dyspnea. GASTROINTESTINAL: Denies abdominal pain SKIN: Denies rash MUSCULOSKELETAL: Denies back pain, reports left shoulder pain NEUROLOGIC: Denies headache PMFSH Past Medical History Medical History Chronic GERD Diabetes mellitus type 2 in nonobese Epigastric pain Nausea and vomiting in adult Obesity Surgical History Surgical History History of back surgery History of esophagogastroduodenoscopy (EGD) 11/07/19 History of orthopedic surgery Family History Family History Sibling Family history of thyroid disease Family history of diabetes mellitus in first degree relative Father Family history of diabetes mellitus in first degree relative Mother Family history of thyroid disease Social History Social History Smoking status: Never smoker Second hand tobacco smoke exposure: No Alcohol intake: current Drinks per week: 3 Substance use: current Substance use type: marijuana Other substance usage details: MEDICAL MARIJUANA CARD- FOR SLEEP AT NIGHT Last use: DAILY MARIJUANA USE Gender identity (if verbalized by the patient): Male Spiritual care concerns: No Exam Narrative: Exam Narrative: GENERAL: Awake, alert, conversant HEAD: Normocephalic, atraumatic. EYES: PERRLA and EOMI. ENT: Nares clear, no rhinorrhea or epistaxis. Mucous membranes moist. NECK: Supple. No cervical spine tenderness. CHEST: No respiratory distress, breathing even and non labored HEART: Regular rate, sinus rhythm ABDOMEN:Non distended, non tender EXTREMITIES: Decreased range of motion in the left shoulder due to pain. Tenderness to the anterior bicipital groove. No tenderness over the clavicle. No obvious deformity. No squaring off of the shoulder. Full extension and flexion of the left elbow without limitation. No deformity. Full range of motion of the left wrist without pain, limitation or deformity. Radial pulse 2+. Intact sensation median, ulnar, radial nerve distribution. SKIN: Warm, dry, no rash. NEURO:No focal deficits. Alert and oriented x3 Course Vital Signs Vital signs: Vital Signs Temperature 36.2 C L 01/14/20 21:24 Pulse Rate 83 01/14/20 21:24 Respiratory Rate 18 01/14/20 21:24 Blood Pressure 187/82 H 01/14/20 21:24 Pulse Oximetry 100 01/14/20 21:24 [place]
[2020-01-14] MEDS: ACETAMINOPHEN 500 MG TABLET 1000 MG PO (22:30)
== END 2020-01-14 22:34 | disposition home or self-care (01) ==
PROVIDERS: Emergency Provider Emergency Medicine; PCP Internal Medicine
DX: S46.912A Strain of unspecified muscle, fascia and tendon at shoulder and upper arm level, left arm, initial encounter (principal); S43.102A Unspecified dislocation of left acromioclavicular joint, initial encounter; K21.9 Gastro-esophageal reflux disease without esophagitis; E11.9 Type 2 diabetes mellitus without complications; W10.9XXA Fall (on) (from) unspecified stairs and steps, initial encounter; Z79.84 Long term (current) use of oral hypoglycemic drugs
CPT/HCPCS: 73030; 99283; A9270

== ENCOUNTER 2020-01-29 08:08 | Outpatient (CLI) | payer MEDICARE, SELFPAY ==
--- NOTE | ~2020-01-29 | MR_ITS ---
EXAMINATION: MR shoulder LT wo con DATE: 01/29/2020 09:30 INDICATION: Left shoulder pain. Strain of muscle and tendon of the rotator cuff of left shoulder, ini tial encounter. TECHNIQUE: Magnetic resonance imaging (MRI) of the left shoulder was performed without intravenous co ntrast. Sequences included axial PD-weighted FS FSE, coronal oblique PD-weighted FS FSE and T2-weight ed FS FSE, and sagittal oblique T2-weighted FS FSE and T1-weighted FSE. COMPARISON: Left shoulder radiographs 01/14/2020 FINDINGS: Coracoacromial arch: The acromion undersurface is curved in morphology (type II). Subacromial spurring is noted. There are likely changes of distal clavicle resection. There is moderate subacromial/subdeltoid bursitis. Rotator cuff: There is a full-thickness tear of anterior supraspinatus tendon measuring 8 mm anterior to posterior by 6 mm proximal to distal. There is mild infraspinatus tendinopathy. Teres minor tendon is normal. T here is mild subscapularis tendinopathy. There is no asymmetric fatty atrophy of the rotator cuff mus brayan bellies. Biceps tendon and glenoid labrum: Biceps tendon is in bicipital groove. There is mild intra-articular biceps tendinopathy. There is deg eneration of the glenoid labrum without well-defined tear. Fluid: There is a small glenohumeral joint effusion. Bones/cartilage: There is cartilage surface irregularity of glenoid and humeral head. IMPRESSION: 1. Full-thickness rotator cuff tear. 2. Mild glenohumeral joint chondrosis. 3. Small glenohumeral joint effusion and moderate subacromial/subdeltoid bursitis. 4. Mild intra-articular biceps tendinopathy. Reviewed, dictated and finalized at location A. TRONIC DIE MAKER IMPRESSION: 1. Full-thickness rotator cuff tear. 2. Mild glenohumeral joint chondrosis. 3. Small glenohumeral joint effusion and moderate subacromial/subdeltoid bursit is. 4. Mild intra-articular biceps tendinopathy.
== END 2020-01-29 08:09 ==
PROVIDERS: Visit Provider Orthopaedic Surgery
DX: S46.012A Strain of muscle(s) and tendon(s) of the rotator cuff of left shoulder, initial encounter (principal); X58.XXXA Exposure to other specified factors, initial encounter; M25.412 Effusion, left shoulder
CPT/HCPCS: 73221

== ENCOUNTER 2020-07-23 08:51 | Emergency (ER) | payer MEDICARE, SELFPAY ==
--- NOTE | ~2020-07-23 | CT_ITS ---
EXAMINATION: CT abdomen pelvis w con DATE: 07/23/2020 10:57 INDICATION: Low abdominal pain. TECHNIQUE: Computed tomography (CT) of the abdomen and pelvis was performed with 100 mL Omnipaque 350 intravenous contrast. Automated exposure control and iterative reconstruction technique were employe d. The dose-length product was 754.17 mGy-cm. COMPARISON: CT abdomen and pelvis 10/15/2019 FINDINGS: The visualized portions of the lung bases demonstrate minimal atelectasis. A calcified righ t lung nodule and calcified right hilar lymph nodes are consistent with old granulomatous disease. No pleural effusion. The heart size is normal. No pericardial effusion. There is diffuse hepatic steato sis. The gallbladder, spleen, pancreas, adrenal glands, and kidneys are normal. The bladder is disten ded. The appendix is normal. There are no dilated loops of bowel. There are no pathologically enlarge d lymph nodes. There is no free intraperitoneal fluid. There are changes of left inguinal hernia repa ir. There is mild thoracolumbar spondylosis. There is mild osteoarthritis of the hips. IMPRESSION: 1. Diffuse hepatic steatosis. Reviewed, dictated and finalized at location B.
[2020-07-23 09:12] VITALS: BP 155/99; PULSE 76; RESP 18; TEMP 36.8; O2SAT 98
[2020-07-23 09:20] LABS: Add Urine Microscopic? YES; Appearance Urine Clear (Clear); Bilirubin Urine Negative (Negative); Blood Urine 1+ (Negative); Color Urine Yellow (Yellow); Glucose Urine UA 3+ mg/dL (Negative); Ketones Urine 1+ mg/dL (Negative); Leukocyte Esterase Ur Negative LEU/UL (Negative); Mucus Urine Rare /lpf; Nitrate Urine Negative (Negative); Protein Urine Negative (Negative); Urobilinogen Urine Negative mg/dL (<2.0); WBC Urine 0-3 /hpf
[2020-07-23 09:22] LABS: Basophils Percent Auto 0.5 % (0.2-1.2); Eosinophils Absolute Auto 0.1 K/mm3 (0-0.3); Eosinophils Percent Auto 1.7 % (0-4.4); Hematocrit 47.8 % (42.0-52.0); Hemoglobin 16.3 g/dL (14.0-18.0); Immature Granulocyte Absolute 0.02 K/mm3 (0.00-0.031); Immature Granulocyte Percent A 0.3 % (0-0.5); Immature Platelet Fraction Pct 12.9 % (0.9-11.2); Lymphocytes Absolute Auto 2.21 K/mm3 (0.9-3.2); Lymphocytes Percent Auto 33.8 % (18.3-44.2); Mean Corpuscular HGB Conc 34.1 g/dl (32-36); Mean Corpuscular Hemoglobin 29.1 pg (26-34); Mean Corpuscular Volume 85.4 fl (80-100); Mean Platelet Volume 11.6 fl (7.4-10.4); Monocytes Absolute Auto 0.5 K/mm3 (0.1-0.6); Monocytes Percent Auto 7.8 % (2.6-8.5); Neutrophils Absolute Auto 3.7 K/mm3 (1.3-6.7); Neutrophils Percent Auto 55.9 % (45.5-73.1); Platelet Count Result 110 k/mm3 (150-375); Red Cell Distribution Width 12.1 % (11.5-14.5); White Blood Count 6.5 K/mm3 (4.5-10.0)
--- NOTE | 2020-07-23 09:39 | ED.ABDPAIN ---
HPI - Abdominal Pain General Chief Complaint: Abdominal Pain Stated Complaint: abd pain Time Seen by Provider: 07/23/20 09:13 Source: patient Mode of arrival: ambulatory Limitations: no limitations History of Present Illness HPI narrative: This is a 50-year-old male that presents the emergency department for right lower quadrant abdominal pain. Present over the last week. Reports it is burning in nature. It is worse when he moves or walks. Reports sometimes he feels a lump in the area. Reports he recently had left inguinal hernia surgery last year. Denies fever, vomiting, dysuria, hematuria. Related Data Home Medications Medication Instructions Recorded Confirmed hydrocodone-acetaminophen 1 - 2 tablet PO QID PRN 10/15/19 01/23/20 metformin 1,000 mg PO BID 10/15/19 01/23/20 amitriptyline 25 mg PO HS 01/14/20 01/23/20 Allergies Allergy/AdvReac Type Severity Reaction Status Date / Time No Known Allergies Allergy Verified 01/23/20 09:37 Review of Systems Review of Systems: Narrative: CONSTITUTIONAL: Denies fever GASTROINTESTINAL: Reports abdominal pain. Denies nausea, vomiting, or diarrhea. GENITOURINARY: Denies dysuria or hematuria. All systems reviewed & are unremarkable except as noted in HPI and below PMFSH Past Medical History Medical History (Updated 07/23/20 @ 11:37 by Elaien Miller PA-C) Chronic GERD Complete rotator cuff tear of left shoulder Diabetes mellitus type 2 in nonobese Epigastric pain Nausea and vomiting in adult Obesity Surgical History Surgical History (Updated 01/23/20 @ 11:05 by Iva Johnson, RT(R)) History of back surgery History of esophagogastroduodenoscopy (EGD) 11/07/19 History of hernia repair History of orthopedic surgery Family History Family History Sibling Family history of thyroid disease Family history of diabetes mellitus in first degree relative Father Family history of diabetes mellitus in first degree relative Mother Family history of thyroid disease Social History Social History Smoking status: Never smoker Second hand tobacco smoke exposure: No Alcohol intake: current Drinks per week: 3 Substance use: current Substance use type: marijuana Other substance usage details: MEDICAL MARIJUANA CARD- FOR SLEEP AT NIGHT Last use: DAILY MARIJUANA USE Gender identity (if verbalized by the patient): Male Spiritual care concerns: No Exam Narrative: Exam Narrative: GENERAL: Well-appearing, obese, and in no acute distress. HEAD: Normocephalic, atraumatic. EYES: EOMI. ENT: Mucous membranes moist. Oropharynx without tonsillar hypertrophy exudate or other lesions. CHEST: Clear to auscultation. No respiratory distress. No wheezes rales or rhonchi HEART: Regular rate and rhythm. No murmur heard. Normal peripheral pulses. ABDOMEN: Soft, nondistended, normal active bowel sounds. Mild tenderness to palpation in the right lower quadrant, without guarding. No CVA tenderness EXTREMITIES: Normal range of motion. No edema. SKIN: Warm, dry, no rash. NEURO: No focal deficits. Alert and oriented x3. PSYCH: Normal mood and affect Course Vital Signs Vital signs: Vital Signs Temperature 98.3 F 07/23/20 09:12 Pulse Rate 76 07/23/20 09:12 Respiratory Rate 18 07/23/20 09:12 Blood Pressure 155/99 H 07/23/20 09:12 Pulse Oximetry 98 07/23/20 09:12 Temperature 98.3 F 07/23/20 09:12 Pulse Rate 76 07/23/20 09:12 Respiratory Rate 18 07/23/20 09:12 Blood Pressure 155/99 H 07/23/20 09:12 Pulse Oximetry 98 07/23/20 09:12 MDM - Abdominal Pain MDM Narrative Medical decision making narrative: Patient presents to the emergency department for right lower quadrant abdominal pain present over the last week. Had recently had inguinal hernia repair on the left, reported pain felt similar to this. No obvious hernia
[2020-07-23 09:46] LABS: Large Platelets Present; Platelet Estimate Decreased (Adequate); Tear Drop Cells 1+ (NORMAL)
[2020-07-23 09:47] LABS: Anisocytosis 2+ (NORMAL)
[2020-07-23 09:55] LABS: Specific Grav Ur 1.036 (1.001-1.035)
[2020-07-23] MEDS: SODIUM CHLORIDE 0.9% IV 1,000 ML 999 ML IV CONT (10:12)
[2020-07-23 10:32] LABS: Alanine Aminotransferase 29 U/L (4-50); Albumin Level 4.2 g/dL (3.5-5.1); Alkaline Phosphatase 140 U/L (38-126); Anion Gap 9 mmol/L (8-16); Aspartate Amino Transferase 26 U/L (17-59); Bilirubin,Total 0.5 mg/dL (0.2-1.3); Blood Urea Nitrogen 12 mg/dL (9-20); Calcium 9.1 mg/dL (8.4-10.2); Carbon Dioxide 24 mmol/L (22-30); Chloride 102 mmol/L (98-107); Estimated CRCL calculation 126 ml/min; Estimated Glomerular Filt Rate > 60; Glucose 347 mg/dL (75-110); Lipase 62 U/L (23-300); Potassium 4.7 mmol/L (3.4-5.0); Sodium 135 mmol/L (137-145)
[2020-07-23 11:43] VITALS: BP 141/95; PULSE 63; RESP 18; O2SAT 100
== END 2020-07-23 11:45 | disposition home or self-care (01) ==
PROVIDERS: Emergency Provider Emergency Medicine; PCP Nurse Practitioner Family
DX: R10.31 Right lower quadrant pain (principal); D69.6 Thrombocytopenia, unspecified; K76.0 Fatty (change of) liver, not elsewhere classified; K21.9 Gastro-esophageal reflux disease without esophagitis; E11.9 Type 2 diabetes mellitus without complications; Z79.84 Long term (current) use of oral hypoglycemic drugs
CPT/HCPCS: 36415; 74177; 80053; 81001; 83690; 85025; 85055; 96361; 96374; 99284; J0131; J7030; Q9967

== ENCOUNTER 2021-04-10 09:37 | Outpatient (CLI) | payer MEDICARE, SELFPAY ==
[2021-04-10 10:39] LABS: Add Urine Microscopic? YES; Appearance Urine Clear (Clear); Bilirubin Urine Negative (Negative); Blood Urine Negative (Negative); Color Urine Straw (Yellow); Glucose Urine UA 3+ mg/dL (Negative); Ketones Urine Trace mg/dL (Negative); Leukocyte Esterase Ur Negative LEU/UL (Negative); Nitrate Urine Negative (Negative); Protein Urine Negative (Negative); RBC Urine 0-2 /hpf (0-2); Urobilinogen Urine Negative mg/dL (<2.0)
[2021-04-10 10:55] LABS: Specific Grav Ur 1.033 (1.001-1.035)
== END 2021-04-10 09:38 | disposition home or self-care (01) ==
PROVIDERS: PCP Nurse Practitioner Family; Visit Provider Surgery
DX: N50.811 Right testicular pain (principal); N50.812 Left testicular pain
CPT/HCPCS: 81001

== ENCOUNTER 2021-04-15 09:45 | Outpatient (CLI) | payer MEDICARE, SELFPAY ==
--- NOTE | ~2021-04-15 | CT_ITS ---
EXAMINATION: CT pelvis wo con DATE: 04/15/2021 10:08 INDICATION: Bilateral lower quadrant pain TECHNIQUE: Computed tomography (CT) of the pelvis was performed without intravenous contrast. The dos e-length product (DLP) was 558.78 mGy-cm. Automated exposure control and iterative reconstruction dewayne hnique were employed. COMPARISON: 07/23/2020 FINDINGS: The appendix is normal. There are no pathologically enlarged pelvic lymph nodes. There is n o free intraperitoneal gas or evidence of bowel obstruction. There appear be changes of left inguinal hernia repair. There is mild circumferential wall thickening of the urinary bladder. IMPRESSION: 1. Circumferential wall thickening of the urinary bladder which could reflect cystitis versus chronic outlet obstruction. Reviewed, dictated and finalized at location A. SPECIALIST IMPRESSION: 1. Circumferential wall thickening of the urinary bladder which could reflect c ystitis versus chronic outlet obstruction.
== END 2021-04-15 09:46 ==
PROVIDERS: PCP Nurse Practitioner Family; Visit Provider Surgery
DX: R10.31 Right lower quadrant pain (principal); R10.32 Left lower quadrant pain; R93.41 Abnormal radiologic findings on diagnostic imaging of renal pelvis, ureter, or bladder; N32.9 Bladder disorder, unspecified
CPT/HCPCS: 72192

== ENCOUNTER 2021-04-21 09:12 | Outpatient (CLI) | payer MEDICARE, SELFPAY ==
[2021-04-21 10:45] LABS: Prostate Specific Antigen 0.2 ng/mL (< OR = 4.0)
== END 2021-04-21 09:13 | disposition home or self-care (01) ==
PROVIDERS: PCP Nurse Practitioner Family; Visit Provider Surgery
DX: N50.811 Right testicular pain (principal); N50.812 Left testicular pain; Z12.5 Encounter for screening for malignant neoplasm of prostate
CPT/HCPCS: 36415; 84153; G0103

== ENCOUNTER 2021-05-28 10:07 | Outpatient (CLI) | payer MEDICARE, SELFPAY ==
--- NOTE | ~2021-05-28 | CT_ITS ---
EXAMINATION: CT pelvis w con DATE: 05/28/2021 10:36 INDICATION: Acute prostatitis. TECHNIQUE: Computed tomography (CT) of the pelvis was performed with 100 mL Omnipaque 350 intravenous contrast. Automated exposure control and iterative reconstruction technique were employed. The dose- length product was 582.54 mGy-cm. COMPARISON: CT pelvis 04/15/2021 FINDINGS: There is a left inguinal hernia containing fat. There are no dilated loops of bowel. The ap pendix is normal. The prostate is normal in size. No abscess. There are no pathologically enlarged ly mph nodes. There is no free intraperitoneal fluid. IMPRESSION: 1. No imaging findings of prostatitis. Reviewed, dictated and finalized at location A.
[2021-05-28 10:25] LABS: Estimated Glomerular Filt Rate > 60
== END 2021-05-28 10:08 ==
LOC: MICIMG 10:07
PROVIDERS: Visit Provider Nurse Practitioner Adult Health
DX: N41.0 Acute prostatitis (principal); K40.90 Unilateral inguinal hernia, without obstruction or gangrene, not specified as recurrent
CPT/HCPCS: 72193; Q9967

== ENCOUNTER 2023-01-15 09:02 | Emergency (ER) | payer MEDICARE, SELFPAY ==
--- NOTE | 2023-01-15 09:08 | ED.SKABFB ---
HPI - Skin/Abscess/Foreign Bdy General Chief complaint: Skin/Abscess/Foreign Body Stated complaint: skin irritation on back Time Seen by Provider: 01/15/23 09:17 Source: patient, RN notes reviewed and old records reviewed Mode of arrival: ambulatory Limitations: no limitations History of Present Illness HPI narrative: 52-year-old male presents to the [facility] with a burning/ painful skin area to the right back just below scapula for 3 weeks. Has been using antibiotic point Denies any fevers. Denies any nausea vomiting chest pain Patient denies a getting any better or worse with treatment. No drainage. Denies any trauma. Denies any injury, denies any colon. Denies any new creams or ointments lotions detergents. Onset (ago): week(s) (3) Treatments prior to arrival: OTC topical medication (Antibiotic ointment) Related Data Home Medications Medication Instructions Recorded Confirmed hydrocodone 10 mg-acetaminophen 1 - 2 tablet PO QID PRN Pain 10/15/19 01/15/23 325 mg tablet lisinopril 10 mg tablet 20 mg PO DAILY 06/04/21 01/15/23 amitriptyline 50 mg tablet 50 mg PO HS 01/15/23 01/15/23 amlodipine 10 mg tablet 10 mg PO DAILY 01/15/23 01/15/23 atorvastatin 40 mg tablet 40 mg PO HS 01/15/23 01/15/23 gabapentin 300 mg capsule 300 mg PO TID 01/15/23 01/15/23 insulin glargine 100 20 unit subcut DAILY 01/15/23 01/15/23 unit-lixisenatide 33 mcg/mL subcutaneous pen (Soliqua 100/33) insulin glargine 100 unit/mL (3 20 unit subcut HS 01/15/23 01/15/23 mL) subcutaneous pen (Lantus Solostar U-100 Insulin) pen needle, diabetic 31 gauge x 01/15/23 01/15/2307/13 (TRUEplus Pen Needle) pen needle, diabetic 32 gauge x 01/15/23 01/15/23 (BD Ness 2nd Gen Pen Needle) semaglutide 1 mg/dose (4 mg/3 mL) 1 mg subcut DAILY 01/15/23 01/15/23 subcutaneous pen injector (Ozempic) tamsulosin 0.4 mg capsule 0.8 mg PO HS 01/15/23 01/15/23 Allergies Allergy/AdvReac Type Severity Reaction Status Date / Time No Known Allergies Allergy Verified 01/15/23 09:10 Review of Systems Review of Systems: All systems reviewed & are unremarkable except as noted in HPI and below Constitutional: Constitutional: Reports no additional constitutional complaints Eyes: Eyes: Reports no additional eye complaints ENT: Reports system reviewed and no additional complaints, except as documented Cardiovascular: Cardiovascular: Reports no additional cardiovascular complaints, Denies chest pain and Denies dyspnea Respiratory: Respiratory: Reports no additional respiratory complaints, Denies chest congestion, Denies cough and Denies dyspnea Gastrointestinal: Gastrointestinal: Reports no additional gastrointestinal complaints, Denies abdominal pain, Denies nausea and Denies vomiting Musculoskeletal: Musculoskeletal: Reports no additional musculoskeletal complaints Integumentary/Breasts: Skin/Breast: Reports as per HPI and Reports lesions Neurologic: Reports system reviewed and no additional complaints, except as documented Psychiatric: Psychiatric: Reports no additional psychiatric complaints Allergic/Immunologic: Allergic/Immunologic: Reports no additional allergic/immunologic complaints PMFSH Past Medical History Medical History Chronic GERD Complete rotator cuff tear of left shoulder Diabetes mellitus type 2 in nonobese Epigastric pain Nausea and vomiting in adult Obesity Surgical History Surgical History H/O inguinal hernia repair 12/17 History of back surgery History of esophagogastroduodenoscopy (EGD) 11/07/19 History of hernia repair History of orthopedic surgery Family History Family History Sibling Family history of thyroid disease Family history of diabetes mellitus in first degree relative Father Family history of diabetes mellitus in first degree relat
[2023-01-15 09:16] VITALS: BP 149/89; PULSE 91; RESP 16; TEMP 36.1; O2SAT 100
== END 2023-01-15 09:27 | disposition home or self-care (01) ==
PROVIDERS: Emergency Provider Nurse Practitioner; PCP Family Medicine
DX: L98.9 Disorder of the skin and subcutaneous tissue, unspecified (principal); F12.90 Cannabis use, unspecified, uncomplicated; K21.9 Gastro-esophageal reflux disease without esophagitis; E11.9 Type 2 diabetes mellitus without complications; E66.9 Obesity, unspecified; Z68.31 Body mass index [BMI] 31.0-31.9, adult
CPT/HCPCS: 99213; G0463

== ENCOUNTER 2023-01-15 10:13 | Emergency (ER) | payer MEDICARE, SELFPAY ==
[2023-01-15 10:29] VITALS: BP 174/91; PULSE 86; RESP 16; TEMP 36.4; O2SAT 100
--- NOTE | 2023-01-15 12:00 | ED.GENADULT ---
HPI - General Adult General Chief complaint: Wound/Laceration Stated complaint: cut on back Time Seen by Provider: 01/15/23 11:12 History of Present Illness HPI narrative: Guy Hernandez is a 52 y/o male who presents with reports of having a scratch on his back that has been there for about 3 weeks and it itches and colon and he doesn't feel like it is healing. Denies any fever/chills/ denies knowing what caused the irritiation Related Data Home Medications Medication Instructions Recorded Confirmed hydrocodone 10 mg-acetaminophen 1 - 2 tablet PO QID PRN Pain 10/15/19 01/15/23 325 mg tablet lisinopril 10 mg tablet 20 mg PO DAILY 06/04/21 01/15/23 amitriptyline 50 mg tablet 50 mg PO HS 01/15/23 01/15/23 amlodipine 10 mg tablet 10 mg PO DAILY 01/15/23 01/15/23 atorvastatin 40 mg tablet 40 mg PO HS 01/15/23 01/15/23 gabapentin 300 mg capsule 300 mg PO TID 01/15/23 01/15/23 insulin glargine 100 20 unit subcut DAILY 01/15/23 01/15/23 unit-lixisenatide 33 mcg/mL subcutaneous pen (Soliqua 100/33) insulin glargine 100 unit/mL (3 20 unit subcut HS 01/15/23 01/15/23 mL) subcutaneous pen (Lantus Solostar U-100 Insulin) pen needle, diabetic 31 gauge x 01/15/23 01/15/23 5/16 (TRUEplus Pen Needle) pen needle, diabetic 32 gauge x 01/15/23 01/15/23 5/32 (BD Ness 2nd Gen Pen Needle) semaglutide 1 mg/dose (4 mg/3 mL) 1 mg subcut DAILY 01/15/23 01/15/23 subcutaneous pen injector (Ozempic) tamsulosin 0.4 mg capsule 0.8 mg PO HS 01/15/23 01/15/23 Allergies Allergy/AdvReac Type Severity Reaction Status Date / Time No Known Allergies Allergy Verified 01/15/23 11:03 Review of Systems Review of Systems: CONSTITUTIONAL: Denies fever, chills, or sweats. EYES: Denies visual changes, redness, or discharge. ENT: Denies rhinorrhea, congestion, sore throat, or otalgia. CARDIOVASCULAR: Denies chest pain, palpitations, or edema. RESPIRATORY: Denies cough or dyspnea. GASTROINTESTINAL: Denies abdominal pain, nausea, vomiting, or diarrhea. GENITOURINARY: Denies dysuria or hematuria. SKIN:Small area to the right upper back that is round and painful and itchy MUSCULOSKELETAL: Denies back pain, joint pain, or myalgia. NEUROLOGIC: Denies headache, numbness, dizziness, or weakness. PSYCHIATRIC: Denies anxiety or depression. PMFSH Past Medical History Medical History Chronic GERD Complete rotator cuff tear of left shoulder Diabetes mellitus type 2 in nonobese Epigastric pain Nausea and vomiting in adult Obesity Surgical History Surgical History H/O inguinal hernia repair 12/17 History of back surgery History of esophagogastroduodenoscopy (EGD) 11/07/19 History of hernia repair History of orthopedic surgery Family History Family History Sibling Family history of thyroid disease Family history of diabetes mellitus in first degree relative Father Family history of diabetes mellitus in first degree relative Mother Family history of thyroid disease Social History Social History Smoking status: Never smoker Second hand tobacco smoke exposure: No Alcohol intake: current Drinks per week: 3 Substance use: current Substance use type: marijuana Other substance usage details: MEDICAL MARIJUANA CARD- FOR SLEEP AT NIGHT Last use: DAILY MARIJUANA USE Living arrangements: with family Gender identity (if verbalized by the patient): Male Spiritual care concerns: No Exam Narrative: GENERAL: Well-appearing, well-nourished, and in no acute distress. HEAD: Normocephalic, atraumatic. EYES: PERRLA and EOMI. ENT: Nares clear, no rhinorrhea or epistaxis. Mucous membranes moist. Oropharynx without tonsillar hypertrophy exudate or other lesions. NECK: Supple. No adenopathy or masses. No carot
== END 2023-01-15 12:25 | disposition home or self-care (01) ==
PROVIDERS: Emergency Provider Nurse Practitioner Family; PCP Family Medicine
DX: L25.9 Unspecified contact dermatitis, unspecified cause (principal); E11.9 Type 2 diabetes mellitus without complications; E66.9 Obesity, unspecified; Z68.31 Body mass index [BMI] 31.0-31.9, adult; K21.9 Gastro-esophageal reflux disease without esophagitis; Z79.85 Long-term (current) use of injectable non-insulin antidiabetic drugs; Z79.4 Long term (current) use of insulin
CPT/HCPCS: 99283

== ENCOUNTER 2023-04-28 10:07 | Emergency (ER) | payer MEDICARE, SELFPAY ==
--- NOTE | ~2023-04-28 | US_ITS ---
Limited Abdominal Sonogram: Real-time sonographic imaging of the right upper quadrant was performed. Clinical History: Abdominal pain Findings: The liver appears normal with no evidence of mass lesion or bile duct dilatation. Main por david vein demonstrates normal direction of flow. The gallbladder is partially distended, and appears n ormal with no evidence of gallstone or wall thickening. The common bile duct measures 3 mm. The visu alized pancreas, aorta, and IVC are unremarkable. Impression: No significant abnormality seen. Reviewed, dictated and finalized at location M. 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
--- NOTE | ~2023-04-28 | CT_ITS ---
CT of the Abdomen and Pelvis: Indication: Abdominal pain Technique: 2.5 mm axial scans were obtained through the abdomen and pelvis following intravenous adm inistration of 100 cc of Omnipaque 350. Dose reduction technique was used on this scan by utilizing a utomated exposure control and iterative reconstruction technique. The dose-length product (DLP) was 7 18.44 mGy-cm. COMPARISON: 05/28/2021 Findings: Scans through the lung bases are unremarkable. The liver, spleen, pancreas, gallbladder, adrenals and kidneys are within normal limits. No evidence of aortic aneurysm. No lymphadenopathy. No bowel obstruction or bowel wall thickening. There is no evidence to suggest acute appendicitis. Images through the pelvis were performed. Urinary bladder unremarkable. Prostate gland and seminal ve sicles are unremarkable. No ascites. Small fat-containing left inguinal hernia noted. Impression: No acute abnormality. Small fat-containing left inguinal hernia. Reviewed, dictated and finalized at [facility]. HAND Impression: No acute abnormality. Small fat-containing left inguinal hernia.
[2023-04-28 10:12] VITALS: BP 140/78; PULSE 94; RESP 16; TEMP 36.4; O2SAT 100
--- NOTE | 2023-04-28 10:57 | ECG_ITS ---
Measurements Intervals [place] Rate: 74 P: 3 TX: 182 QRS: -26 QRSD: 112 T: 10 QT: 377 QTc: 420 Interpretive Statements SINUS RHYTHM BORDERLINE LEFT AXIS DEVIATION [QRS AXIS < -20] INCOMPLETE RIGHT BUNDLE BRANCH BLOCK [90+ ms QRS DURATION, TERMINAL R IN V1/V2, 40+ ms S IN I/aVL/V4/V5/V6] MODERATE VOLTAGE CRITERIA FOR LVH, CONSIDER NORMAL VARIANT [MEETS CRITERIA IN ONE OF: R(aVL), S(V1), R(V5), R(V5/V6)+S(V1)] NONSPECIFIC T WAVE ABNORMALITY COMPARED TO ECG 10/18/2019 16:59:25 NO SIGNIFICANT CHANGES Electronically Signed On 04-28-2023 15:47:38 [employer] REPAIRER by Shira Michelle M.D.
[2023-04-28 11:13] VITALS: BP 139/82; PULSE 71; RESP 13; TEMP 36.6; O2SAT 100
[2023-04-28] MEDS: SODIUM CHLORIDE 0.9% IV 1,000 ML 999 ML IV CONT (11:17)
[2023-04-28] MEDS: FAMOTIDINE 20 MG/2 ML VIAL IV PUSH (11:17)
[2023-04-28] MEDS: MORPHINE SULFATE (*CRX) 4 MG/ML INJ IV PUSH (11:17)
[2023-04-28] MEDS: ONDANSETRON INJ 4 MG/2 ML VIAL IV PUSH (11:17)
--- NOTE | 2023-04-28 11:18 | ED.ABDPAIN ---
HPI - Abdominal Pain General Chief Complaint: Abdominal Pain Stated Complaint: RUQ ABD PAIN X7D Time Seen by Provider: 04/28/23 10:52 History of Present Illness HPI narrative: This is a 53-year-old male, with past medical history hypertension and diabetes, presents to the emergency department complaining of epigastric and right upper quadrant abdominal pain for the past week. The patient describes the pain as sharp, rated 7/10 without radiation though associated nausea. The patient denies any obvious triggers for the pain. He denies bleeding from any source and has no other complaints at this time. Related Data Home Medications Medication Instructions Recorded Confirmed hydrocodone 10 mg-acetaminophen 1 - 2 tablet PO QID PRN Pain 10/15/19 01/15/23 325 mg tablet lisinopril 10 mg tablet 20 mg PO DAILY 06/04/21 01/15/23 amitriptyline 50 mg tablet 50 mg PO HS 01/15/23 01/15/23 amlodipine 10 mg tablet 10 mg PO DAILY 01/15/23 01/15/23 atorvastatin 40 mg tablet 40 mg PO HS 01/15/23 01/15/23 gabapentin 300 mg capsule 300 mg PO TID 01/15/23 01/15/23 insulin glargine 100 20 unit subcut DAILY 01/15/23 01/15/23 unit-lixisenatide 33 mcg/mL subcutaneous pen (Soliqua 100/33) insulin glargine 100 unit/mL (3 20 unit subcut HS 01/15/23 01/15/23 mL) subcutaneous pen (Lantus Solostar U-100 Insulin) pen needle, diabetic 31 gauge x 01/15/23 01/15/23 5/16 (TRUEplus Pen Needle) pen needle, diabetic 32 gauge x 01/15/23 01/15/23 5/32 (BD Ness 2nd Gen Pen Needle) semaglutide 1 mg/dose (4 mg/3 mL) 1 mg subcut DAILY 01/15/23 01/15/23 subcutaneous pen injector (Ozempic) tamsulosin 0.4 mg capsule 0.8 mg PO HS 01/15/23 01/15/23 Allergies Allergy/AdvReac Type Severity Reaction Status Date / Time No Known Allergies Allergy Verified 01/15/23 11:03 Review of Systems Review of Systems: CONSTITUTIONAL: Denies fever, chills, or sweats. CARDIOVASCULAR: Denies chest pain, palpitations, or edema. RESPIRATORY: Denies cough or dyspnea. GASTROINTESTINAL: Epigastric abdominal pain, nausea and nonbloody vomiting denies diarrhea. GENITOURINARY: Denies dysuria or hematuria. SKIN: Denies rash or itching. MUSCULOSKELETAL: Denies back pain, joint pain, or myalgia. NEUROLOGIC: Denies headache, numbness, dizziness, or weakness. PSYCHIATRIC: Denies anxiety or depression. PMFSH Past Medical History Medical History Chronic GERD Complete rotator cuff tear of left shoulder Diabetes mellitus type 2 in nonobese Epigastric pain Nausea and vomiting in adult Obesity Surgical History Surgical History H/O inguinal hernia repair 12/17 History of back surgery History of esophagogastroduodenoscopy (EGD) 11/07/19 History of hernia repair History of orthopedic surgery Family History Family History Sibling Family history of thyroid disease Family history of diabetes mellitus in first degree relative Father Family history of diabetes mellitus in first degree relative Mother Family history of thyroid disease Social History Social History Smoking status: Never smoker Second hand tobacco smoke exposure: No Alcohol intake: current Drinks per week: 3 Substance use: current Substance use type: marijuana Other substance usage details: MEDICAL MARIJUANA CARD- FOR SLEEP AT NIGHT Last use: DAILY MARIJUANA USE Living arrangements: with family Gender identity (if verbalized by the patient): Male Spiritual care concerns: No Exam Narrative: GENERAL: Well-developed, well-nourished, and in no acute distress. HEAD: Normocephalic, atraumatic. EYES: PERRLA and EOMI. CHEST: Clear to auscultation. No respiratory distress. No wheezes rales or rhonchi HEART: Regular rate and rhythm. No murmur heard. Hali
[2023-04-28 11:32] LABS: Estimated CRCL calculation 91 ml/min; Estimated Glomerular Filt Rate > 60
[2023-04-28 11:34] LABS: Basophils Percent Auto 0.4 % (0.2-1.2); Eosinophils Absolute Auto 0.1 K/mm3 (0-0.3); Hematocrit 46.8 % (42.0-52.0); Hemoglobin 15.5 g/dL (14.0-18.0); Immature Granulocyte Absolute 0.02 K/mm3 (0.00-0.031); Immature Granulocyte Percent A 0.3 % (0-0.5); Lymphocytes Percent Auto 23.2 % (18.3-44.2); Mean Corpuscular HGB Conc 33.1 g/dl (32-36); Mean Corpuscular Hemoglobin 29.5 pg (26-34); Mean Platelet Volume 10.3 fl (7.4-10.4); Monocytes Absolute Auto 0.6 K/mm3 (0.1-0.6); Monocytes Percent Auto 7.3 % (2.6-8.5); Neutrophils Absolute Auto 5.3 K/mm3 (1.3-6.7); Neutrophils Percent Auto 67.8 % (45.5-73.1); Platelet Count Result 204 k/mm3 (150-375); Red Blood Count 5.26 M/mm3 (4.6-6.20); Red Cell Distribution Width 12.4 % (11.5-14.5); White Blood Count 7.8 K/mm3 (4.5-10.0)
[2023-04-28 11:35] LABS: Appearance Urine Clear (Clear); Bilirubin Urine Negative (Negative); Blood Urine Negative (Negative); Color Urine Yellow (Yellow); Glucose Urine UA 3+ mg/dL (Negative); Ketones Urine 1+ mg/dL (Negative); Leukocyte Esterase Ur Negative LEU/UL (Negative); Nitrate Urine Negative (Negative); Protein Urine Negative (Negative); Urobilinogen Urine 0.2 mg/dL (<2.0); pH Urine 5.5 (5.0-9.0)
[2023-04-28 11:39] LABS: Specific Grav Ur 1.039 (1.001-1.035)
[2023-04-28 11:40] LABS: Add Urine Microscopic? NO
[2023-04-28 11:46] LABS: Alanine Aminotransferase 46 U/L (6-50); Albumin Level 4.8 g/dL (3.5-5.1); Alkaline Phosphatase 90 U/L (38-126); Anion Gap 9 mmol/L (8-16); Aspartate Amino Transferase 32 U/L (17-59); Bilirubin,Total 0.7 mg/dL (0.2-1.3); Blood Urea Nitrogen 18 mg/dL (9-20); Calcium 9.7 mg/dL (8.4-10.2); Carbon Dioxide 25 mmol/L (22-30); Chloride 104 mmol/L (98-107); Estimated CRCL calculation 91 ml/min; Estimated Glomerular Filt Rate > 60; Glucose 135 mg/dL (65-110); Lipase 99 U/L (23-300); Potassium 3.7 mmol/L (3.4-5.0); Sodium 138 mmol/L (137-145)
[2023-04-28 11:58] LABS: Troponin I < 0.012 ng/mL (0.000-0.034)
[2023-04-28 12:20] VITALS: BP 136/74; PULSE 78; RESP 16; TEMP 36.7; O2SAT 98
== END 2023-04-28 12:48 | disposition home or self-care (01) ==
PROVIDERS: Emergency Provider Preventive Medicine Aerospace Medicine; PCP Family Medicine
DX: K80.50 Calculus of bile duct without cholangitis or cholecystitis without obstruction (principal); I10 Essential (primary) hypertension; E11.9 Type 2 diabetes mellitus without complications; E66.9 Obesity, unspecified; Z68.29 Body mass index [BMI] 29.0-29.9, adult; K21.9 Gastro-esophageal reflux disease without esophagitis; Z79.4 Long term (current) use of insulin; Z79.85 Long-term (current) use of injectable non-insulin antidiabetic drugs; K40.90 Unilateral inguinal hernia, without obstruction or gangrene, not specified as recurrent; I45.10 Unspecified right bundle-branch block
CPT/HCPCS: 74177; 76705; 80053; 81003; 83690; 84484; 85025; 93005; 96361; 96374; 96375; 99284; J2270; J2405; J7030; Q9967

== ENCOUNTER 2023-05-08 14:45 | Emergency (ER) | payer MEDICARE, SELFPAY ==
--- NOTE | ~2023-05-08 | CT_ITS ---
EXAMINATION: CT abdomen pelvis w con DATE: 05/08/2023 19:41 INDICATION: Epigastric abdominal pain. TECHNIQUE: Computed tomography (CT) of the abdomen and pelvis was performed with 100 mL Omnipaque 350 intravenous contrast. Automated exposure control and iterative reconstruction technique were employe d. The dose-length product was 551.69 mGy-cm. COMPARISON: CT abdomen and pelvis 04/28/23 FINDINGS: The visualized portions of the lung bases demonstrate minimal atelectasis. No pleural effus ion. The heart size is normal. No pericardial effusion. The liver, gallbladder, spleen, pancreas, adr enal glands, and kidneys are normal. There is a left inguinal hernia containing fat. The bladder is d istended. There are no dilated loops of bowel. The appendix is normal. There is mild thoracic and lum bar spondylosis. IMPRESSION: 1. Left inguinal hernia containing fat. Reviewed, dictated and finalized at location E.
[2023-05-08 15:18] VITALS: BP 137/98; PULSE 83; RESP 20; TEMP 36.3; O2SAT 100
--- NOTE | 2023-05-08 17:44 | ED.ABDPAIN ---
HPI - Abdominal Pain General Chief Complaint: Abdominal Pain Stated Complaint: epigastric pain Time Seen by Provider: 05/08/23 17:40 Source: patient Mode of arrival: ambulatory Limitations: no limitations History of Present Illness HPI narrative: This is a 53-year-old male that presents to the emergency department for epigastric pain. Ongoing over the last week. He was evaluated for this here in the ER and discharged to remain on a low-fat diet and with pain medication. He was following this, until yesterday when he had a cheeseburger. His pain has been worsening again since. Reports some nausea. Denies fevers, vomiting, or diarrhea. Related Data Home Medications Medication Instructions Recorded Confirmed hydrocodone 10 mg-acetaminophen 1 - 2 tablet PO QID PRN Pain 10/15/19 01/15/23 325 mg tablet lisinopril 10 mg tablet 20 mg PO DAILY 06/04/21 01/15/23 amitriptyline 50 mg tablet 50 mg PO HS 01/15/23 01/15/23 amlodipine 10 mg tablet 10 mg PO DAILY 01/15/23 01/15/23 atorvastatin 40 mg tablet 40 mg PO HS 01/15/23 01/15/23 gabapentin 300 mg capsule 300 mg PO TID 01/15/23 01/15/23 insulin glargine 100 20 unit subcut DAILY 01/15/23 01/15/23 unit-lixisenatide 33 mcg/mL subcutaneous pen (Soliqua 100/33) insulin glargine 100 unit/mL (3 20 unit subcut HS 01/15/23 01/15/23 mL) subcutaneous pen (Lantus Solostar U-100 Insulin) pen needle, diabetic 31 gauge x 01/15/23 01/15/23 5/16 (TRUEplus Pen Needle) pen needle, diabetic 32 gauge x 01/15/23 01/15/23 5/32 (BD Ness 2nd Gen Pen Needle) semaglutide 1 mg/dose (4 mg/3 mL) 1 mg subcut DAILY 01/15/23 01/15/23 subcutaneous pen injector (Ozempic) tamsulosin 0.4 mg capsule 0.8 mg PO HS 01/15/23 01/15/23 Allergies Allergy/AdvReac Type Severity Reaction Status Date / Time No Known Allergies Allergy Verified 01/15/23 11:03 Review of Systems Review of Systems: CONSTITUTIONAL: Denies fever CARDIOVASCULAR: Denies chest pain RESPIRATORY: Denies dyspnea. GASTROINTESTINAL: Reports abdominal pain, nausea. Denies vomiting, or diarrhea. GENITOURINARY: Denies dysuria All systems reviewed & are unremarkable except as noted in HPI and below PMFSH Past Medical History Medical History Chronic GERD Complete rotator cuff tear of left shoulder Diabetes mellitus type 2 in nonobese Epigastric pain Nausea and vomiting in adult Obesity Surgical History Surgical History H/O inguinal hernia repair 12/17 History of back surgery History of esophagogastroduodenoscopy (EGD) 11/07/19 History of hernia repair History of orthopedic surgery Family History Family History Sibling Family history of thyroid disease Family history of diabetes mellitus in first degree relative Father Family history of diabetes mellitus in first degree relative Mother Family history of thyroid disease Social History Social History Smoking status: Never smoker Second hand tobacco smoke exposure: No Alcohol intake: current Drinks per week: 3 Substance use: current Substance use type: marijuana Other substance usage details: MEDICAL MARIJUANA CARD- FOR SLEEP AT NIGHT Last use: DAILY MARIJUANA USE Living arrangements: with family Gender identity (if verbalized by the patient): Male Spiritual care concerns: No Exam Narrative: GENERAL: Well-appearing, well-nourished, and in no acute distress. HEAD: Normocephalic, atraumatic. EYES: EOMI. CHEST: Clear to auscultation. No respiratory distress. No wheezes rales or rhonchi HEART: Regular rate and rhythm. No murmur heard. Normal peripheral pulses. ABDOMEN: Soft, nondistended, normal active bowel sounds. Mild tenderness to palpation in epigastrium, without guarding EXTREMITIES: Normal range of glenys
[2023-05-08 18:00] LABS: Basophils Absolute Auto 0.1 K/mm3 (0.0-0.1); Basophils Percent Auto 0.5 % (0.2-1.2); Eosinophils Absolute Auto 0.2 K/mm3 (0-0.3); Eosinophils Percent Auto 1.7 % (0-4.4); Hematocrit 46.9 % (42.0-52.0); Hemoglobin 15.3 g/dL (14.0-18.0); Immature Granulocyte Absolute 0.02 K/mm3 (0.00-0.031); Immature Granulocyte Percent A 0.2 % (0-0.5); Lymphocytes Absolute Auto 3.37 K/mm3 (0.9-3.2); Lymphocytes Percent Auto 35.4 % (18.3-44.2); Mean Corpuscular HGB Conc 32.6 g/dl (32-36); Mean Corpuscular Hemoglobin 29.5 pg (26-34); Mean Corpuscular Volume 90.4 fl (80-100); Mean Platelet Volume 10.4 fl (7.4-10.4); Monocytes Absolute Auto 0.7 K/mm3 (0.1-0.6); Monocytes Percent Auto 7.3 % (2.6-8.5); Neutrophils Absolute Auto 5.2 K/mm3 (1.3-6.7); Neutrophils Percent Auto 54.9 % (45.5-73.1); Platelet Count Result 230 k/mm3 (150-375); Red Blood Count 5.19 M/mm3 (4.6-6.20); Red Cell Distribution Width 12.4 % (11.5-14.5); White Blood Count 9.5 K/mm3 (4.5-10.0)
[2023-05-08 18:01] LABS: Appearance Urine Clear (Clear); Bilirubin Urine Negative (Negative); Blood Urine Negative (Negative); Color Urine Yellow (Yellow); Glucose Urine UA 3+ mg/dL (Negative); Ketones Urine Negative (Negative); Leukocyte Esterase Ur Negative LEU/UL (Negative); Nitrate Urine Negative (Negative); Protein Urine Negative (Negative); Specific Grav Ur 1.034 (1.001-1.035); Urobilinogen Urine 0.2 mg/dL (<2.0); pH Urine 5.5 (5.0-9.0)
[2023-05-08 18:03] LABS: Add Urine Microscopic? YES
--- NOTE | 2023-05-08 18:05 | ECG_ITS ---
Measurements Intervals [place] Rate: 74 P: -2 SD: 203 QRS: -23 QRSD: 117 T: 12 QT: 383 QTc: 425 Interpretive Statements SINUS RHYTHM INCOMPLETE RIGHT BUNDLE BRANCH BLOCK VOLTAGE CRITERIA FOR LVH BORDERLINE R WAVE PROGRESSION, ANTERIOR LEADS BASELINE ARTIFACT- AVR, AVL, AVF, V3 BORDERLINE ECG COMPARED TO ECG 04/28/2023 11:04:18 NO SIGNIFICANT CHANGES Electronically Signed On 05-08-2023 20:14:39 CDT by Sean Tellez D.O.
[2023-05-08 18:07] LABS: Alanine Aminotransferase 34 U/L (6-50); Alkaline Phosphatase 105 U/L (38-126); Anion Gap 8 mmol/L (8-16); Aspartate Amino Transferase 34 U/L (17-59); Bilirubin,Total 0.6 mg/dL (0.2-1.3); Blood Urea Nitrogen 21 mg/dL (9-20); Calcium 9.8 mg/dL (8.4-10.2); Carbon Dioxide 27 mmol/L (22-30); Chloride 104 mmol/L (98-107); Estimated CRCL calculation 87 ml/min; Estimated Glomerular Filt Rate > 60; Glucose 121 mg/dL (65-110); Lipase 90 U/L (23-300); Potassium 3.7 mmol/L (3.4-5.0); Sodium 139 mmol/L (137-145)
[2023-05-08] MEDS: ONDANSETRON INJ 4 MG/2 ML VIAL IV PUSH (18:38)
[2023-05-08] MEDS: PANTOPRAZOLE SODIUM IV 40 MG VIAL IV PUSH (18:38)
[2023-05-08 18:41] LABS: Troponin I < 0.012 ng/mL (0.000-0.034)
== END 2023-05-08 20:06 | disposition home or self-care (01) ==
PROVIDERS: Emergency Provider Physician Assistant; PCP Family Medicine
DX: R10.13 Epigastric pain (principal); E11.9 Type 2 diabetes mellitus without complications; E66.9 Obesity, unspecified; Z68.33 Body mass index [BMI] 33.0-33.9, adult; K21.9 Gastro-esophageal reflux disease without esophagitis; Z79.4 Long term (current) use of insulin; Z79.85 Long-term (current) use of injectable non-insulin antidiabetic drugs; K40.90 Unilateral inguinal hernia, without obstruction or gangrene, not specified as recurrent; I45.10 Unspecified right bundle-branch block; R94.31 Abnormal electrocardiogram [ECG] [EKG]
CPT/HCPCS: 36415; 74177; 80053; 81001; 83690; 84484; 85025; 93005; 96374; 96375; 99284; C9113; J2405; Q9967

== ENCOUNTER 2023-06-02 00:56 | Day surgery (SDC) | payer MEDICARE, SELFPAY ==
[2023-06-01 09:56] VITALS: BMI 30.2
--- NOTE | 2023-06-01 10:01 | PC.NURSE ---
Report to the Outpatient Waiting Room, entrance under the green pavilion located off [facility], at time 0600 on date 06/02/23. Planned Procedure Time: 0730. Time changes happen often and if your time is changed the preop area will call you the afternoon before. - You and your visitor will be asked to self-screen and do not enter if you have any COVID symptoms. - A mask is optional within the hospital at this time. Patients may have clear liquids (water, carbonated beverages, clear teas, apple juice) until 3 hours prior to surgery with a maximum of 20 ounces. - No food from midnight until time of surgery Take the following medications with a SIP of water the morning of surgery: AMLODIPINE, PAIN PILL IF NEEDED DO NOT STOP ANY OF YOUR OTHER PRESCRIPTION MEDICATIONS PRIOR TO SURGERY ?EXCEPT THE FOLLOWING Medications to discontinue per physician: N/A Date to take last dose: N/A Please no make-up, nail bengali, hairspray, perfume, deodorant, or body powder the day of surgery. No jewelry (including any body piercings) or valuables the day of surgery, leave them at home. Please take a shower or bath the night before, or the morning of, surgery with an antibacterial soap. Wear comfortable, loose fitting clothing. - Jewelry must be removed prior to entering the operating room. Rings and piercings that are not removed may be cut off. - The hospital will not accept responsibility for valuables. - Please leave all valuables, including medications, at home the day of surgery. If you are going home after surgery, a licensed buggy driver must drive you home. - NO public transportation without another adult if you receive anesthesia. - We recommend that an adult stay with you for 24 hours following discharge. - We also recommend that you do not drive, make important decision, drink alcoholic beverages, or take any drugs that were not prescribed by your health care provider for at least 24 hours after your discharge time. Follow any additional instructions given to you from your surgeon. If you or anyone in your household have experienced Covid symptoms in the past week, please notify your surgeon or the nurse liaison at the phone number below for possible testing. Telephone instructions given to PT Kamilla SALDANA and asked if any additional questions and then verbalized understanding. Patient advised to call surgeon office or pre surgery nurse liaison [phone] if any additional questions.
--- NOTE | 2023-06-01 14:29 | WPDANESEPPF ---
Anes - Initial Pre Proc Eval Procedure: Operation Date: 06/02/23 07:30 Proposed Procedures p Open Recurrent Left Inguinal Hernia Repair with Mesh - Demario Conteh MD Date/Time: 06/01/23 14:29 Surgeon: Demario Conteh MD Pre Op Diagnosis: Recurrent Left Ing Hernia Patient Data Age: 53 Gender: M Height: 1.65 m Weight: 82.55 kg Allergies Allergy/AdvReac Type Severity Reaction Status Date / Time No Known Allergies Allergy Verified 05/31/23 13:14 Home Medications Medication Instructions Recorded Confirmed Type lisinopril 10 mg tablet 20 mg PO DAILY 06/04/21 06/01/23 History amitriptyline 50 mg tablet 50 mg PO HS 01/15/23 06/01/23 History amlodipine 10 mg tablet 10 mg PO DAILY 01/15/23 06/01/23 History atorvastatin 40 mg tablet 40 mg PO HS 01/15/23 06/01/23 History insulin glargine 100 unit/mL (3 20 unit subcut HS 01/15/23 06/01/23 History mL) subcutaneous pen (Lantus Solostar U-100 Insulin) pen needle, diabetic 31 gauge x 01/15/23 05/31/23 History 5/16 (TRUEplus Pen Needle) pen needle, diabetic 32 gauge x 01/15/23 05/31/23 History /32 (BD Ness 2nd Gen Pen Needle) tamsulosin 0.4 mg capsule 0.8 mg PO HS 01/15/23 06/01/23 History dapagliflozin propanediol 10 mg 10 mg PO DAILY 06/01/23 06/01/23 History tablet (Farxiga) hydrocodone 10 mg-acetaminophen 1 tablet PO PRN PRN Pain 06/01/23 06/01/23 History 325 mg tablet semaglutide 2 mg/dose (8 mg/3 mL) 2 mg subcut WEEKLY 06/01/23 06/01/23 History subcutaneous pen injector (Ozempic) Patient hx anesthesia problems: none Family hx anesthesia problems: none Results Review: All pre-operative results and documents have been reviewed as part of the pre-operative evaluation. [facility] Past Medical History Medical History (Updated 06/01/23 @ 14:30 by Narayan Damon DO) Chronic GERD Complete rotator cuff tear of left shoulder Diabetes mellitus type 2 in nonobese Epigastric pain Hyperlipidemia Hypertension Nausea and vomiting in adult Obesity DIANDRA (obstructive sleep apnea) Surgical History Surgical History H/O inguinal hernia repair 12/17 History of back surgery History of esophagogastroduodenoscopy (EGD) 11/07/19 History of hernia repair History of orthopedic surgery Family History Family History Sibling Family history of thyroid disease Family history of diabetes mellitus in first degree relative Father Family history of diabetes mellitus in first degree relative Mother Family history of thyroid disease Social History Social History Smoking status: Never smoker Second hand tobacco smoke exposure: No Alcohol intake: never Drinks per week: 3 Substance use: current Substance use type: marijuana Other substance usage details: MEDICAL MARIJUANA CARD- FOR SLEEP AT NIGHT Last use: DAILY MARIJUANA USE Living arrangements: alone Gender identity (if verbalized by the patient): Male Spiritual care concerns: No Anes - Eval Final PreProcedure Day of Procedure 06/01/23 14:29 Patient weight: obese Heart: regular rate and rhythm Lungs: clear to auscultation Airway: Mallampati scale class II Neurological: alert and oriented Last oral intake: >/= 8 hours ASA classification: III Emergent: no Anesthetic plan: proceed Anesthesia type and monitoring: general ETT and standard monitoring Results Review: All pre-operative results and documents have been reviewed as part of the pre-operative evaluation. Informed Consent: The patient's anesthetic plan and its attendant risks and benefits were discussed with the patient/family/POA. Questions were solicited and answers provided to the satisfaction of the patient/family/POA.
[2023-06-02] VITALS (9 sets, daily range): BP systolic 96–128; BP diastolic 51–90; PULSE 80–100; RESP 14–25; TEMP 36.2; O2SAT 97–100; BMI 29.0
[2023-06-02] MEDS: LACTATED RINGERS 1,000 ML 30 ML IV CONT ×2 (06:30→09:18)
[2023-06-02] MEDS: ACETAMINOPHEN 500 MG TABLET 1000 MG PO (06:39)
[2023-06-02] MEDS: KETOROLAC 15 MG/ML VIAL (*BKC) IV PUSH ×2 (06:40→08:50)
[2023-06-02 06:45] LABS: Glucose Point of Care 132 mg/dl (65-105)
--- NOTE | 2023-06-02 07:19 | WPDHPUPDATE1 ---
History and Physical Update Update Date/Time: 06/02/23 07:19 History and Physical has been reviewed, including an updated exam of the patient. There are NO changes in the patient's condition. Risks, benefits, and alternatives have been discussed and questions answered. Patient agrees to proceed with procedure.
[2023-06-02] MEDS: ceFAZolin 2 GM/D5W 50 ML 2 GM/50 ML BAG IVPB (07:40)
[2023-06-02] MEDS: LIDO 1%/EPINEPHRINE 1:100,000 50 ML VIAL 20 ML INFILTRATE (08:02)
[2023-06-02] MEDS: BUPivacaine HCL 0.5% 10 ML AMP 20 ML INFILTRATE (08:03)
--- NOTE | 2023-06-02 09:23 | W.PM.PROC2 ---
Procedure Note - Detailed Date of Procedure 06/02/23 Pre-op Diagnosis Recurrent Left Ing Hernia Post-op Diagnosis Same Procedure Performed Open recurrent left inguinal hernia repair with onlay mesh (Marek repair). Surgeon Demario Conteh MD Online Merchandising Manager ZION [facility] Anesthesia General Indications Patient is a 53-year-old male who had a robotic assisted laparoscopic left inguinal hernia repair about 4 years ago. Over the past several months he has had recurrent left groin pain and recent CT scan abdomen pelvis showed the current left inguinal hernia repair with fatty tissue within the inguinal canal. He presents now for a open recurrent left inguinal hernia repair with mesh. Findings Patient had a moderate-sized left inguinal cord lipoma. The internal ring was mildly dilated with evidence of a indirect recurrent left inguinal hernia. Description of Procedure After informed consent was obtained patient brought to the operating room was placed supine position and general endotracheal anesthesia was administered. The abdomen in the left groin region was then prepped and draped usual sterile fashion. A time-out was then performed correctly identifying the patient as well as procedure to be performed and verifying he was given perioperative IV antibiotics. The site marking was verified I then made a transverse incision in the pannus skin crease in the left groin region about 2 to 3 fingerbreadths above the palpated the left pubic tubercle. Dissection was then carried down through the subcutaneous tissue electrocautery and down through Mery's fascia. External oblique aponeurosis was encountered in the subcu tissue was dissected off of the fascia. I then incised the external oblique aponeurosis with a scalpel in the direction of its fibers and then open the external oblique aponeurosis out through the external ring utilized electrocautery. I then the external oblique aponeurosis from the underlying internal oblique muscle fibers and the cremasteric muscle fibers utilizing electrocautery and blunt finger dissection. I then encircled the cord at the pubic tubercle with a Kareem drain after blunt dissection and then further mobilized the cord utilizing electrocautery to divide some more internal oblique and cremasteric muscle fibers. I examine the floor of the inguinal canal and there is no evidence of a direct defect. I then explored the cord and identified the vas deferens and testicular vessels and preserve these without injury. There is a moderate-sized cord lipoma coming through a mildly dilated internal ring which was a recurrent left inguinal hernia. I then dissected the cord lipoma up to the level of the internal ring of electrocautery. I then ligated the cord lipoma at the level the internal ring with a 3-0 Vicryl suture and then amputated the distal portion of the cord lipoma electrocautery. This tissue was discarded and not sent to pathology. I then proceeded to decrease the size of the internal ring by placement of 2 separate 0 Ethibond sutures. I then proceeded to perform a Marek repair by placement of a piece of Bard soft mesh on onlay position over the floor of the inguinal canal. A 6x3in piece of Bard soft mesh was cut to the appropriate configuration and mesh was placed over the floor of the inguinal canal. It was sutured in place at the pubic tubercle utilizing a 2-0 Prolene suture. I then cut a slit in the patch to accommodate cord structures in the edges of the patch were reapproximated around the cord utilizing a running 2-0 Prolene suture. The tail of the patch was then tacked underneath the external oblique aponeurosis proximally. And secured the medial edge of the overlay patch to the internal oblique muscle fibers by continuing the 2-0 Prolene suture and it was run to firmly secure the medial portion of mesh to the internal oblique muscle fibers and the lateral edge of the left rectus muscle. A 2nd 2-0 Prolene
[2023-06-02 09:37] LABS: Glucose Point of Care 144 mg/dl (65-105)
[2023-06-02] MEDS: fentaNYL CITRATE INJ (*CRX) 100 MCG/2 ML VIAL 25 MCG IV PUSH ×4 (09:48→09:58)
== END 2023-06-02 11:35 | disposition home or self-care (01) ==
PROVIDERS: PCP Family Medicine; Visit Provider Surgery
PROC: (CPT 49520; principal; 2023-06-02 07:30)
DX: K40.91 Unilateral inguinal hernia, without obstruction or gangrene, recurrent (principal); I10 Essential (primary) hypertension; E78.5 Hyperlipidemia, unspecified; G47.33 Obstructive sleep apnea (adult) (pediatric); K21.9 Gastro-esophageal reflux disease without esophagitis; E11.9 Type 2 diabetes mellitus without complications; F12.90 Cannabis use, unspecified, uncomplicated; E66.9 Obesity, unspecified; Z68.29 Body mass index [BMI] 29.0-29.9, adult; Z79.4 Long term (current) use of insulin; Z79.84 Long term (current) use of oral hypoglycemic drugs; Z79.85 Long-term (current) use of injectable non-insulin antidiabetic drugs
CPT/HCPCS: 49520; 82948; 93005; A9270; C1781; J0690; J1100; J1885; J2250; J2704; J3010; J7120

== ENCOUNTER 2023-11-07 08:16 | Outpatient (CLI) | payer MEDICARE, SELFPAY ==
--- NOTE | ~2023-11-07 | XR_ITS ---
EXAMINATION: XR abdomen obstructive series DATE: 11/07/2023 08:54 INDICATION: Chronic idiopathic constipation. Chronic epigastric abdominal pain. TECHNIQUE: Upright and supine views of the abdomen on 4 radiographs were obtained. COMPARISON: CT abdomen and pelvis 05/08/2023 FINDINGS: There are no dilated loops of bowel. There is a moderate volume of stool in the colon. No f ree intraperitoneal gas. IMPRESSION: 1. Normal bowel gas pattern. Reviewed, dictated and finalized at location A.
== END 2023-11-07 08:17 | disposition home or self-care (01) ==
LOC: ANHIMG 08:19
PROVIDERS: PCP Family Medicine; Visit Provider Family Medicine
DX: K59.04 Chronic idiopathic constipation (principal)
CPT/HCPCS: 74019

== ENCOUNTER 2024-03-06 11:13 | Outpatient (CLI) | payer MEDICARE, SELFPAY ==
[2024-03-06 12:02] LABS: Hematocrit 45.2 % (42.0-52.0); Hemoglobin 15.6 g/dL (14.0-18.0); Mean Corpuscular HGB Conc 34.5 g/dl (32-36); Mean Corpuscular Hemoglobin 30.3 pg (26-34); Mean Corpuscular Volume 87.8 fl (80-100); Mean Platelet Volume 10.8 fl (7.4-10.4); Platelet Count Result 213 k/mm3 (150-375); Red Blood Count 5.15 M/mm3 (4.6-6.20); Red Cell Distribution Width 13.1 % (11.5-14.5); White Blood Count 8.6 K/mm3 (4.5-10.0)
[2024-03-06 12:21] LABS: Alanine Aminotransferase 37 U/L (6-50); Albumin Level 4.7 g/dL (3.5-5.1); Alkaline Phosphatase 90 U/L (38-126); Amylase 82 U/L (30-110); Anion Gap 10 mmol/L (4-12); Aspartate Amino Transferase 35 U/L (17-59); Bilirubin,Total 0.9 mg/dL (0.2-1.3); Blood Urea Nitrogen 27 mg/dL (9-20); Carbon Dioxide 20 mmol/L (22-30); Chloride 107 mmol/L (98-107); Estimated Glomerular Filt Rate > 60; Glucose 158 mg/dL (65-110); Lipase 142 U/L (23-300); Sodium 137 mmol/L (137-145)
[2024-03-06 12:28] LABS: CRP < 0.5 mg/dL (<1.0)
[2024-03-06 13:11] LABS: Hepatitis B Surface Antigen Negative (Negative)
[2024-03-06 13:17] LABS: HAV RESULT Negative (Negative); Hepatitis B Core IgM Result Negative (Negative)
[2024-03-06 13:28] LABS: Hepatitis C Virus Antibody Negative (Negative)
[2024-03-06 17:39] LABS: Erythrocyte Sedimentation Rate 2 mm/hr (0-20)
[2024-03-07 13:52] LABS: Hemoglobin A1C 7.9 % (<5.7)
[2024-03-08 15:53] LABS: Immunoglobulin A 119 mg/dL (47-310); TTG IGA AB <1.0 U/mL
[2024-03-08 16:02] LABS: H pylori, Urea Breath NOT DETECTED (NOT DETECTED)
--- OUTSIDE RECORDS SUMMARY | 2024-03-13 11:13 | XMS_ITS | Clinical Summary ---
Author Organization [facility] Address [address] [place] [address] Care Team Providers Care Sat Instructor Name Role Phone Stacie Johnson MD Primary Care Provider [phone] Source Comments [facility],non-owned Affiliates and Associated Physician Practices is amultiple site organization consisting of ambulatory clinics and hospital sitesin [place], [place], [place] and [place]. This disclosure is being madepursuant to the Care Everywhere program and may not contain all information available regarding this patient. Last updated 17.[facility] Allergies No known active allergies Medications * Be aware that medications may not be up to date on this document. Alwaysverify current medications with the patient. Medication Sig Dispensed Refills Start Date End Date Status HYDROcodone-acetamino phen (NORCO) 10-325 MG tablet TK 1 T PO QID FOR CHRONIC PAIN SYNDROME 0 10/11/2018 Active metFORMIN (GLUCOPHAGE) 1000 MG tablet TK 1 T PO BID 0 08/04/2018 Active amitriptyline (ELAVIL) 50 MG tablet Take 50 mg by mouth at bedtime Active Social History Tobacco Use Types Packs/Day Years Used Date Smoking Tobacco: Never Smokeless Tobacco: Never Tobacco Cessation:Counseling Given: No Alcohol Use Standard Drinks/Week Comments Yes 3 (1 standard drink = 0.6 oz pur e alcohol) AUDIT-C Answer Date Recorded Frequency of Alcohol Consumption 2-4 times a tue10/23/2018 Average Number of Drinks Not on file 019 Frequency of Binge Drinking Not on file 09/29 Sex and Gender Information Value Date Recorded Sex Assigned at Not on file Gender Identity Not on file Sexual Orientation Not on file Last Filed Vital Signs Vital Sign Reading Time Taken Comments Blood Pressure 137/66 10/23/2018 3:28 PM CDT Pulse 82 10/23/2018 3:28 PM CDT Temperature - - Respiratory Rate - - Oxygen Saturation - - Inhaled Oxygen Concentration - - Weight 86.2 kg (190 lb) 10/23/2018 3:28 PM CDT Height 157.5 cm (5' 2 ) 10/23/2018 3:28 PM CDT Body Mass Index 34.75 10/23/2018 3:28 PM CDT Plan of Treatment Health Maintenance Due Date Last Done Comments COLOGUARD (AGES 45-75) - COL ON CA SCREENING 1970 COLON MONITORING 1970 COLONOSCOPY - COLON CA SCREENING 1970 CT COLONOGRAPHY - COLON CA SCREENING 1970 Colorectal Cancer Screening 1970 FIT - COLON CA SCREENING 1970 FLEX SIG - COLON CA SCREENING 1970 LIPID TESTING 1970 MEDICARE AWV ? 12 MONTHS 1970 HIV SCREENING 1985 HEPATITIS C SCREENING 03/11/1988 DTAP/TDAP/TD VACCINES (1 - Tdap) 1989 HEPATITIS B VACCINE (1 of 3 - 19+ 3-dose series) 1989 SCREENING FOR DIABETES 10/23/2018 ZOSTER VACCINE (1 of 2) 2020 COVID-19 VACCINE (1 - 2023-2 5 season) 2023 INFLUENZA VACCINE (#1) 2023 DEPRESSION SCREENING 02/29/2024 HIB VACCINE Aged Out No longer eligi ble based on patient's age to complete this topic HPV VACCINE Aged Out No longer eligi ble based on patient's age to complete this topic MENINGOCOCCAL VACCINE Aged Out No katie vale eligible based on patient's age to complete this topic PNEUMOCOCCAL VACCINE Aged Out No long er eligible based on patient's age to complete this topic Care Teams Sat Instructor Relationship Specialty Start Date End Date Stacie Johnson MD PCP - General 11/01/18
--- OUTSIDE RECORDS SUMMARY | 2024-03-13 11:14 | XMS_ITS | Encounter Summary ---
Author Organization [facility] Address [address] [place] [address]. [place] [address] [place] [address] Care Team Providers Care Cardiology Nurse Name Role Phone Jeanette Street [facility] Primary Care Provider + Encounter Details Date Type Department Care Team (Late st Contact Info) Description 12/13/2017 Abstract [facility] Conversion Darwin Cooper MD [address] [place] [address] Social History Tobacco Use Types Packs/Day Years Used Date Smoking Tobacco: Never Assessed Sex and Gender Information Value Date Recorded Sex Assigned at Not on file Legal Sex Male 7:39 PM CDT Gender Identity Not on file Sexual Orientation Not on file documented as of this encounter Miscellaneous Notes * Letter - Darwin Cooper MD - 12/13/2017 12:00 AM CDT 12-13-2017 Cam Hernandez [address] [place] [id number] : 1970 Lab Order: CMP; Hemoglobin A1c E11.65: Type 2 diabetes mellitus with hyperglycemia Fasting [x] Non-Fasting [] Normal [x] Stat [] ECTOR BARREL documented in this encounter Plan of Treatment Upcoming Encounters Date Type Department Care Team (Late st Contact Info) Description 04/03/2024 1:00 PM INSPECTOR BARREL Office Visit [facility] Medical Group Multispecialty Care - [facility] [address] [place] [address] Moriah Hammond NP [address] [place] [address] documented as of this encounter Visit Diagnoses Not on filedocumented in this encounter Care Teams Cardiology Nurse Relationship Specialty Start Date End Date Jeanette Street, SKATE SHOP ATTENDANT- [address] [place] [address] PCP - General Nurse Practitioner Family 12/26/23 documented as of this encounter
--- OUTSIDE RECORDS SUMMARY | 2024-03-13 11:14 | XMS_ITS | Encounter Summary ---
Author Organization [facility] Address [address] [place] [address]. [place] [address] [place] [address] Care Team Providers Care Power Line Lineman Name Role Phone Unavailable Primary Care Provider Unavailabl e Reason for Visit * Reason Comments Form (SCAN) OFFICE DOCUMENTATION PATIENT NO SHOW Encounter Details Date Type Department Care Team (Late st Contact Info) Description 01/27/2018 Scan HEALTH INFO [facility] Scanned, Documents Form (SCAN) (OFFICE DOCUMENTATION PATIENT NO SHOW) Social History Tobacco Use Types Packs/Day Years Used Date Smoking Tobacco: Never Assessed Sex and Gender Information Value Date Recorded Sex Assigned at Not on file Legal Sex Male 7:39 PM CDT Gender Identity Not on file Sexual Orientation Not on file documented as of this encounter Plan of Treatment Upcoming Encounters Date Type Department Care Team (Late st Contact Info) Description 04/03/2024 1:00 PM OPERATIONS OFFICER TRUST DEPARTMENT Office Visit [facility] Medical Group Multispecialty Care - [facility] [address], [address] [place] [address] Moriah Hammond NP [address] [facility] [address] [place] [address] documented as of this encounter Visit Diagnoses Not on filedocumented in this encounter
--- OUTSIDE RECORDS SUMMARY | 2024-03-13 11:14 | XMS_ITS | Encounter Summary ---
Author Organization [facility] Address [address] [place] [address]. [place] [address] [place] [address] Care Team Providers Care Card Folder Name Role Phone Unavailable Primary Care Provider Unavailabl e Encounter Details Date Type Department Care Team (Late st Contact Info) Description 10/28/2017 Abstract [facility] Conversion Md, Generic Conversion, Social History Tobacco Use Types Packs/Day Years [...] st Contact Info) Description 04/03/2024 1:00 PM BEAD FLIPPER Office Visit [facility] Medical Group Multispecialty Care - [facility] [address] [place] [address] Moriah Hammond NP [address] [facility] [address] [place] [address] documented as of this encounter Visit Diagnoses Not on filedocumented in this encounter
--- OUTSIDE RECORDS SUMMARY | 2024-03-13 11:14 | XMS_ITS | Encounter Summary ---
Author Organization [facility] Address [address] [place] [address]. [place] [address] [place] [address] Care Team Providers Care Petroleum Products Sales Representative Name Role Phone Jeanette Street [facility] Primary Care Provider + Encounter Details Date Type Department Care Team (Late st Contact Info) Description 02/01/2018 Abstract [facility] CONVERSION [address] [place] [address] , Generic Conversion, Social History Tobacco Use Types [...] st Contact Info) Description 04/03/2024 1:00 PM ATHLETIC EVENTS SCORER Office Visit [facility] Medical Group Multispecialty Care - [facility] [address], [address] [place] [address] Moriah Hammond, MOMO [address] [facility] [address] [place] [address] documented as of this encounter Visit Diagnoses Not on filedocumented in this encounter Care Teams Petroleum Products Sales Representative Relationship Specialty Start Date End Date Jeanette Street [facility] [address] [place] [address] PCP - General Nurse Practitioner Family 12/26/23 documented as of this encounter
--- OUTSIDE RECORDS SUMMARY | 2024-03-13 11:14 | XMS_ITS | Encounter Summary ---
Author Organization [facility] Address [address] [place] [address] Care Team Providers Care Manager Car Name Role Phone Petar Dove MD Primary Care Provider Unavailabl e Encounter Details Date Type Department Care Team (Latest Contact Info) Description 10/23/2018 3:00 PM CDT - 10/23/2018 11:59 PM CDT Hospital Encounter [facility] [address] [place] [id number] Ara Sr, HOME HEALTH CLINICAL LIAISON-OCCUPATIONAL HEALTH NURSE MANAGER [address] [place] [address] Discharge Disposition: Home or Self Care Social History Tobacco Use Types Packs/Day Years Used Date Smoking Tobacco: Never Smokeless Tobacco: Never Alcohol Use Standard Drinks/Week Comments Yes 3 [...] on file documented as of this encounter Medications at Time of Discharge Medication Sig Dispensed Refills Start Date End Date amitriptyline (ELAVIL) 50 MG tablet Take 50 mg by mouth at bedtime HYDROcodone-acetaminophen (NORCO) 10-325 MG tablet TK 1 T PO QID FOR CHRONIC PAIN SYNDROME 0 10/11/2018 metFORMIN (GLUCOPHAGE) 1000 MG tablet TK 1 T PO BID 0 08/04/2018 documented as of this encounter Plan of Treatment Not on file documented as of this encounter Procedures Procedure Name Priority Date/Time Associated Diagnosis Comments XR THORACOLUMBAR SPINE 2VW Routine 10/23/2018 3:26 PM CDT Radicular pain of thoracic region documented in this encounter Results * XR THORACOLUMBAR SPINE 2VW (10/23/2018 3:26 PM CDT) Anatomical Region Laterality Modality Spine Radiographic Kalie ging 10/23/2018 3:46 PM CDT Impressions 10/24/2018 7:09 AM CDT IMPRESSION: No acute fracture or subluxation identified. Mild degenerative changes of the thoracolumbar spine. Dictated by Tigre Ortez MD (academic affairs vice president). Dr. EMIGDIO Che have personally reviewed and interpreted this examination/study. This report was electronically signed by EMIGDIO MARSHALL ??on 10/24/2018 7:09 AM . Narrative 10/24/2018 7:09 AM CDT EXAMINATION: XR THORACOLUMBAR SPINE 2VW HISTORY: M54.14: Radicular pain of thoracic region COMPARISON: No prior study is available for comparison. FINDINGS: The vertebral bodies are normally aligned. There is no fracture or compression deformity. Mild disc space narrowing is seen at multiple levels. A few enthesophyte are seen in the lumbar spine. Procedure Note Emigdio Marshall Lazaro, DO - 10/24/2018 EXAMINATION: XR THORACOLUMBAR SPINE 2VW HISTORY: M54.14: Radicular pain of thoracic region COMPARISON: No prior study is available for comparison. FINDINGS: The vertebral bodies are normally aligned. There is no fracture or compression deformity. Mild disc space narrowing is seen at multiple levels. A few enthesophyte are seen in the lumbar spine. IMPRESSION: No acute fracture or subluxation identified. Mild degenerative changes of the thoracolumbar spine. Dictated by Tigre Ortez MD (academic affairs vice president). Dr. EMIGDIO Che have personally reviewed and interpreted this examination/study. This report was electronically signed by EMIGDIO MARSHALL on 10/24/2018 7:09 AM . Ara Sr HOME HEALTH CLINICAL LIAISON-OCCUPATIONAL HEALTH NURSE MANAGER DIAGNOSTIC IMAG ING ORDERABLES documented in this encounter Visit Diagnoses Diagnosis Radicular pain of thoracic region Thoracic or lumbosacral neuritis or radiculitis, unspecified documented in this encounter Care Teams Manager Car Relationship Specialty Start Date End Date Petar Dove MD PCP - General Internal Medicine 10/23/18 10/31/18 documented as of this encounter
--- OUTSIDE RECORDS SUMMARY | 2024-03-13 11:14 | XMS_ITS | Clinical Summary ---
Author Organization [facility] Address [address] [place] [address]. [place] [address] [place] [address] Care Team Providers Care Associate Embalmer/Funeral Director Name Role Phone Jeanette Street [facility] Primary Care Provider + Social History Tobacco Use Types Packs/Day Years Used Date Smoking Tobacco: Never Assessed Sex and Gender Information Value Date Recorded Sex Assigned at Not on file Legal Sex Male 7:39 PM CDT Gender Identity Not on file Sexual Orientation Not on file Last Filed Vital Signs Vital Sign Reading Time Taken Comments Blood Pressure 110/70 07/19/2017 9:38 AM CDT Pulse 83 07/19/2017 9:38 AM CDT Temperature - - Respiratory Rate - - Oxygen Saturation - - Inhaled Oxygen Concentration - - Weight 82.6 kg (182 lb) 07/19/2017 9:38 AM CDT Height 160 cm (5' 3 ) 07/19/2017 9:38 AM CDT Body Mass Index 32.24 07/19/2017 9:38 AM CDT Plan of Treatment Upcoming Encounters Date Type Department Care Team (Late st Contact Info) Description 04/03/2024 1:00 PM CNS Office Visit [facility] Medical Group Multispecialty Care - [facility] [address] [place] [address] Moriah Hammond NP [address] [facility] [address] [place] [address] Health Maintenance Due Date Last Done Comments Colorectal Cancer Screening Colonoscopy (10 Years) 1970 Annual Physical 1973 Hepatitis C 1988 DTaP, Tdap and Td Vaccines ( 1 - Tdap) 1989 Hepatitis B Vaccines (1 of 3 - 19+ 3-dose series) 1989 Zoster Vaccines (1 of 2) 2020 COVID-19 Vaccine (3 - 2023-2 5 season) 2023 08/07/2020, 07/17/2020 Influenza Adult (#1) 2023 Meningococcal Vaccine Aged Out No katie vale eligible based on patient's age to complete this topic Pneumococcal Vaccine: Pediatrics (0 to 5 Years) and At-Risk Patients (6 to 64 Years) Aged Out No longer eligible b ased on patient's age to complete this topic RSV Immunizations Under 20 Months Aged Out No longer eligible b ased on patient's age to complete this topic Insurance [place] Care Teams Associate Embalmer/Funeral Director Relationship Specialty Start Date End Date Jeanette Street, DIRECTOR OF CONSULTING SERVICES- [address] [place] [address] PCP - General Nurse Practitioner Family 12/26/23
--- OUTSIDE RECORDS SUMMARY | 2024-03-13 11:14 | XMS_ITS | Encounter Summary ---
Author Organization [facility] Address [address] [place] [address]. [place] [address] [place] [address] Care Team Providers Care Rn Field Name Role Phone Unavailable Primary Care Provider Unavailabl e Encounter Details Date Type Department Care Team (Late st Contact Info) Description 11/08/2017 Abstract [facility] Conversion Md, Generic Conversion, Social History Tobacco [...] st Contact Info) Description 04/03/2024 1:00 PM QUALITY ENGINEER Office Visit [facility] Medical Group Multispecialty Care - [facility] [address] [place] [address] Moriah Hammond NP [address] [facility] [address] [place] [address] documented as of this encounter Visit Diagnoses Not on filedocumented in this encounter
--- OUTSIDE RECORDS SUMMARY | 2024-03-13 11:14 | XMS_ITS | Encounter Summary ---
Author Organization [facility] Address [address] [place] [address]. [place] [address] [place] [address] Care Team Providers Care Mule Driver Name Role Phone Unavailable Primary Care Provider Unavailabl e Encounter Details Date Type Department Care Team (Late st Contact Info) Description 01/03/2018 Abstract [facility] Conversion Md, Generic Conversion, Social History Tobacco [...] st Contact Info) Description 04/03/2024 1:00 PM ELECTRONIC TYPESETTING MACHINE OPERATOR Office Visit [facility] Medical Group Multispecialty Care - [facility] [address] [place] [address] Moriah Hammond NP [address] [facility] [address] [place] [address] documented as of this encounter Visit Diagnoses Not on filedocumented in this encounter
--- OUTSIDE RECORDS SUMMARY | 2024-03-13 11:14 | XMS_ITS | Encounter Summary ---
Author Organization [facility] Address [address] [place] [address] Care Team Providers Care Reverberatory Skimmer Name Role Phone Stacie Johnson MD Primary Care Provider Reason for Visit * Reason Onset Date Comments Reminder Call 10/20/2018 clld pt to confi rm appt NA left detailed msg Encounter Details Date Type Department Care Team (Late st Contact Info) Description 10/20/2018 Telephone [facility] Neurosurgery [address] [place] [address] Adeel Guaman MD [address] [place] [phone] Reminder Call (clld pt to confirm appt NA left detailed msg ) Social History Tobacco Use Types Packs/Day Years Used Date Smoking Tobacco: Never Assessed Sex and Gender Information Value Date Recorded Sex Assigned at Not on file Gender Identity Not on file Sexual Orientation Not on file documented as of this encounter Miscellaneous Notes * Telephone Encounter - Kelsey Pierre - 10/20/2018 9:31 AM CDT clld pt to confirm appt NA left detailed msg documented in this encounter Plan of Treatment Not on file documented as of this encounter Visit Diagnoses Not on filedocumented in this encounter Care Teams Reverberatory Skimmer Relationship Specialty Start Date End Date Stacie Johnson MD PCP - General 10/16/18 10/22/18 documented as of this encounter
--- OUTSIDE RECORDS SUMMARY | 2024-03-13 11:14 | XMS_ITS | Encounter Summary ---
Author Organization [facility] Address [address] [facility] [place] [address] Care Team Providers Care Credit Analyst Name Role Phone Unavailable Primary Care Provider Unavailabl e Encounter Details Date Type Department Care Team (Late st Contact Info) Description 10/02/2018 Orders Only [facility] Neurosurgery [address] [place] [address] Ara Sr, ALUMNAE SECRETARY-DINING SERVICE SUPERVISOR [address] [place] [address] Radicular pain of thoracic region Social History Tobacco Use Types Packs/Day Years Used Date Smoking Tobacco: Never Assessed Sex and Gender Information Value Date Recorded Sex Assigned at Not on file Gender Identity Not on file Sexual Orientation Not on file documented as of this encounter Plan of Treatment Not on file documented as of this encounter Results * XR THORACOLUMBAR SPINE 2VW (10/23/2018 3:26 PM CDT) Anatomical Region Laterality Modality Spine Radiographic Kalie ging 10/23/2018 3:46 PM CDT Impressions 10/24/2018 7:09 AM CDT IMPRESSION: No acute fracture or subluxation identified. Mild degenerative changes of the thoracolumbar spine. Dictated by Tigre Ortez MD (vice president of recruiting). I, Dr. EMIGDIO MARSHALL have personally reviewed and interpreted this examination/study. [...] in the lumbar spine. Procedure Note Emigdio Marshall, DO - 10/24/2018 EXAMINATION: XR THORACOLUMBAR SPINE [...] thoracolumbar spine. Dictated by Tigre Ortez MD (vice president of recruiting). I, Dr. MEIGDIO MARSHALL have personally reviewed and interpreted this examination/study. This report was electronically signed by EMIGDIO MARSHALL on 10/24/2018 7:09 AM . Ara Sr ALUMNAE SECRETARY-DINING SERVICE SUPERVISOR DIAGNOSTIC IMAG ING ORDERABLES documented in this encounter Visit Diagnoses Diagnosis Radicular pain of thoracic region- Primary Thoracic or lumbosacral neuritis or radiculitis, unspecified Radicular pain of thoracic region Thoracic or lumbosacral neuritis or radiculitis, unspecified documented in this encounter
--- OUTSIDE RECORDS SUMMARY | 2024-03-13 11:14 | XMS_ITS | Referral Summary ---
Author Organization [facility] Address [address] [facility] [place] [address] Care Team Providers Care Hydro Electric Station Operator Name Role Phone Stacie Johnson MD Primary Care Provider [phone] Source Comments [facility] [employer],non-owned Affiliates and Associated Physician Practices is amultiple site organization consisting of ambulatory clinics and hospital sitesin [place], [place], [place] and [place]. This disclosure is being madepursuant to the Care Everywhere program and may not contain all information available regarding this patient. Last updated 17.[facility] [employer] Allergies No known active allergies Medications * [...] 10/23/2018 3:28 PM CDT Plan of Treatment Not on file Care Teams Hydro Electric Station Operator Relationship Specialty Start Date End Date Stacie Johnson MD PCP - General 11/01/18
--- OUTSIDE RECORDS SUMMARY | 2024-03-13 11:14 | XMS_ITS | Encounter Summary ---
Author Organization [facility] Address [address] [place] [address]. [place] [address] [place] [address] Care Team Providers Care Sound Equipment Mechanic Name Role Phone Unavailable Primary Care Provider Unavailabl e Encounter Details Date Type Department Care Team (Late Contact Info) Description 11/03/2017 Abstract [facility] Conversion Darwin Cooper MD [address] [place] [address] Social History Tobacco Use Types Packs/Day Years Used Date Smoking Tobacco: Never Assessed Sex and Gender Information Value Date Recorded Sex Assigned at Not on file Legal Sex Male 7:39 PM CDT Gender Identity Not on file Sexual Orientation Not on file documented as of this encounter Progress Notes * Darwin Cooper MD - 11/03/2017 12:00 AM CDT Date: 11/03/2017 Name: Cam Hernandez : 1970 Age: 47 Telephone conversation with patient regarding UDS screen and need for an appointment-patient stateshe is going to change physicians to one closer to his home and will be in to sign for records-also,informed patient that UDS positive for alcohol and marijuana and to stop these substances while on narcotics and should random UDS come back positive for these again will no longer receive controlledsubstances from this clinic. P atient voiced understanding. Note entered by Yana Reddy RN IT ADMINISTRATION OFFICER documented in this encounter Plan of Treatment Upcoming Encounters Date Type Department Care Team (Late Contact Info) Description 04/03/2024 1:00 PM CREDIT ADMINISTRATION OFFICER Office Visit [facility] Medical Group Multispecialty Care - [address], [address] [place] [address] Moriah Hammond, MOMO [address] [facility] [address] [place] [address] documented as of this encounter Visit Diagnoses Not on filedocumented in this encounter
--- OUTSIDE RECORDS SUMMARY | 2024-03-13 11:14 | XMS_ITS | Encounter Summary ---
Author Organization [facility] Address [address] [place] [address] Care Team Providers Care Sandwich Hand Name Role Phone Petar Dove MD Primary Care Provider Unavailabl e Reason for Visit * Reason Comments Establish Care Low Back Pain Encounter Details Date Type Department Care Team (Latest Contact Info) Description 10/23/2018 3:30 PM CDT Office Visit [facility] Neurosurgery [address] [place] [address] Adeel Guaman MD [address] [place] [phone] Displacement of thoracic intervertebral disc (Primary Dx) Social History Tobacco Use Types Packs/Day Years [...] on file documented as of this encounter Last Filed Vital Signs Vital Sign Reading [...] Mass Index 34.75 10/23/2018 3:28 PM CDT documented in this encounter Progress Notes * Adeel Guaman MD - 10/23/2018 9:42 PM CDT NAME: CAM HERNANDEZ : 1970 AGE: 48 PROVIDER: Adeel Guaman MD SEX: M DATE: 10/23/2018 I had the pleasure of seeing Mr. Hernandez in the neurosurgery office today. HISTORY OF PRESENT ILLNESS: Mr. Hernandez is a very pleasant 48-year-old gentleman with history of pain in his thoracic spine as well as lumbar spine that seems to be chronic in nature. The patient reports that several years ago he had worsening of the strength in the lower limbs to the point that hewas almost completely paralyzed. He reports that he was submitted to a T1-T4 laminectomy for decompression of his spinal cord. The patient reports progressive improvement of the strength in the legs,however, he reports that with his current job which requires a significant amount of physical exertion, he sometimes feels that he loses strength in the right leg. He also complains of some numbness distally in the lower limbs. He denies bowel or bladder incontinence, muscle wasting or spasticity. Past Medical History: Diagnosis Date ??? Alcohol abuse ??? Diabetes No past surgical history on file. No family history on file. Social History Socioeconomic History ??? Marital status: Spouse name: Not on file ??? Number of children: Not on file ??? Years of education: Not on file ??? Highest education level: Not on file Occupational History ??? Not on file Social Needs ??? Financial resource strain: Not on file ??? Food insecurity: Worry: Not on file Inability: Not on file ??? Transportation needs: Medical: Not on file Non-medical: Not on file Tobacco Use ??? Smoking status: Never Smoker ??? Smokeless tobacco: Never Used Substance and Sexual Activity ??? Alcohol use: Yes Alcohol/week: 3.0 - 4.0 standard drinks Types: 3 - 4 Cans of beer per week Frequency: 2-4 times a month ??? Drug use: Yes Types: Marijuana ??? Sexual activity: Not on file Lifestyle ??? Physical activity: Days per week: Not on file Minutes per session: Not on file ??? Stress: Not on file Relationships ??? Social connections: Talks on phone: Not on file Gets together: Not on file Attends congregation service: Not on file Active member of club or organization: Not on file Attends meetings of clubs or organizations: Not on file Relationship status: Not on file ??? Intimate partner violence: Fear of current or ex partner: Not on file Emotionally abused: Not on file Physically abused: Not on file Forced sexual activity: Not on file Other Topics Concern ??? Not on file Social History Narrative ??? Not on file Current Medications amitriptyline (ELAVIL) 50 MG tablet Take 50 mg by mouth at bedtime HYDROcodone-acetaminophen (NORCO) 10-325 MG tablet TK 1 T PO QID FOR CHRONIC PAIN SYNDROME metFORMIN (GLUCOPHAGE) 1000 MG tablet TK 1 T PO BID PHYSICAL EXAMINATION: The patient seems to be in moderate discomfort, but in no acute distress. He has several myofascial tender points on palpation of the paraspinal muscles in the posterior thoracic region. He has an incision in the upper thoracic spine that seems to be well healed. He also has some pain on palpation of his lower lumbar spine. Straight leg raise test is negative bilaterally. Reflexes are slightly increased in the lower limbs at 2+ for patellar and Achilles, 1-beat clonus on both sides. Strength, sensation, and reflexes are normal in the upper limbs. Strength is 4+/5 in thelower limbs REVIEW OF DIAGNOSTIC STUDIES: The patient had a new MRI of the thoracic spine performed on 10/24/2017 which shows a disk herniation at the level of T2-T3, causing some ventral compression upon the spinal cord with moderate degree of spinal canal stenosis without CSF around the spinal cord. However without increased T2 signal in the spinal cord. MEDICAL DECISION MAKING: I told the patient that he presents with a challenging condition with previous history of thoracic myelopathy, having been submitted to a surgical intervention in his thoracic spine. I told him that it is unclear if his mild symptoms or hyperreflexia in the lower limbs and weakness are residual from the previous spinal cord compression or related to the current findings of the MRI. I told him that he would have the option of proceeding with surgery with posterior screw and dillan fixation and transpedicular approach for a thoracic microdiscectomy. However, I explained tohim that there may be some associated risk of worsening of his neurological function. As it is currently unclear if the observed neurological findings are old or new in nature, I told him he would also have the option of continuing conservative treatment. He is already following with pain management for some trigger point injections in his thoracic spine as well as lumbar spine. I suggested him to obtain a new MRI of the thoracic spine and follow up in approximately 6 months. At this point, the patient is inclined to avoid another surgery unless it is strictly necessary. Thanks for allowing us to participate in the care of your patient. If he presents any deteriorationsooner, I recommend him to follow earlier. [id number] Doc ID: [id number] Voice Job ID: [id number] documented in this encounter Plan of Treatment Not on file documented as of this encounter Visit Diagnoses Diagnosis Displacement of thoracic intervertebral disc- Primary Displacement of thoracic intervertebral disc without myelopathy documented in this encounter Care Teams Sandwich Hand Relationship Specialty Start Date End Date Petar Dove MD PCP - General Internal Medicine 10/23/18 10/31/18 documented as of this encounter
--- OUTSIDE RECORDS SUMMARY | 2024-03-13 11:14 | XMS_ITS | Patient Health Summary ---
Author Organization [facility] Address [address] [place] [address] Care Team Providers Care Police Cadet Name Role Phone Stacie Johnson MD Primary Care Provider [phone] [facility]non-owned Affiliates and Associated Physician Practices is amultiple site organization consisting of ambulatory clinics and hospital sitesin [place], [place], [place] and [place]. This disclosure is being madepursuant to the Care Everywhere program and may not contain all information available regarding this patient. Last updated 17.[facility] Allergies No known active allergies Medications * Be aware that medications may not be up to date on this document. Alwaysverify current medications with the patient. * HYDROcodone-acetaminophen (NORCO) 10-325 MG tablet(Started 10/11/2018) TK 1 T PO QID FOR CHRONIC PAIN SYNDROME * metFORMIN (GLUCOPHAGE) 1000 MG tablet(Started 08/04/2018) TK 1 T PO BID * amitriptyline (ELAVIL) 50 MG tablet Take 50 mg by mouth at bedtime Social History Tobacco Use Types Packs/Day Years [...] Mass Index 34.75 10/23/2018 3:28 PM CDT Procedures * XR THORACOLUMBAR SPINE 2VW(Performed 10/23/2018) Performed for Radicular pain of thoracic region Results * XR THORACOLUMBAR SPINE 2VW (10/23/2018 3:26 PM CDT) Anatomical Region Laterality Modality Spine Radiographic Kalie ging 10/23/2018 3:46 PM CDT Impressions 10/24/2018 7:09 AM CDT IMPRESSION: No acute fracture or subluxation identified. Mild degenerative changes of the thoracolumbar spine. Dictated by Tigre Ortez MD (residential housekeeper). I, Dr. EMIGDIO MARSHALL have personally reviewed [...] the lumbar spine. Procedure Note Emigdio Marshall DO - 10/24/2018 EXAMINATION: XR THORACOLUMBAR SPINE [...] thoracolumbar spine. Dictated by Tigre Ortez MD (residential housekeeper). I, Dr. EMIGDIO MARSHALL have personally reviewed and interpreted this examination/study. This report was electronically signed by EMIGDIO MARSHALL on 10/24/2018 7:09 AM . Ara Sr TOWER CONTROL OPERATOR-SERVICE BAR CASHIER DIAGNOSTIC IMAG ING ORDERABLES Care Teams Police Cadet Relationship Specialty Start Date End Date Stacie Johnson MD PCP - General 11/01/18
--- OUTSIDE RECORDS SUMMARY | 2024-03-13 11:14 | XMS_ITS | Encounter Summary ---
Author Organization [facility] Address [address] [facility] [place] [address] Care Team Providers Care Reinsurance Claim Analyst Name Role Phone Unavailable Primary Care Provider Unavailabl e Reason for Visit * Reason Onset Date Comments Future Appointment 10/03/2018 Encounter Details Date Type Department Care Team (Late st Contact Info) Description 10/03/2018 Telephone [facility] [address] [place] [address] So Malave Future Appointment Social History Tobacco Use Types Packs/Day Years Used Date Smoking Tobacco: Never Assessed Sex and Gender Information Value Date Recorded Sex Assigned at Not on file Gender Identity Not on file Sexual Orientation Not on file documented as of this encounter Miscellaneous Notes * Telephone Encounter - So Malave - 10/03/2018 8:39 AM CDT Left voice message for patient to call office to schedule new patient appointment with Dr. Guaman. documented in this encounter Plan of Treatment Not on file documented as of this encounter Visit Diagnoses Not on filedocumented in this encounter
--- OUTSIDE RECORDS SUMMARY | 2024-03-13 11:15 | XMS_ITS | Encounter Summary ---
Author Organization [facility] Address [address] [place] [address]. [place] [address] [place] [address] Care Team Providers Care Steam Station Supervisor Name Role Phone Unavailable Primary Care Provider Unavailabl e Encounter Details Date Type Department Care Team (Late st Contact Info) Description 07/13/2017 Abstract [facility] Diagnostic Imaging [address] [place] [address] Linda Turner NP [address] [place] [address] Social History Tobacco Use Types Packs/Day Years [...] st Contact Info) Description 04/03/2024 1:00 PM FOURDRINIER MACHINE OPERATOR Office Visit [facility] Medical Group Multispecialty Care - [facility] [address] [facility], [address] [place] [address] Moriah Hammond NP 3 [facility] [address] [place] [address] documented as of this encounter Procedures Procedure Name Priority Date/Time Associated Diagnosis Comments URINALYSIS WI REFLEX TO CULTURE Routine 07/13/2017 10:46 AM CDT URINE BACTERIA CULTURE Routine 07/13/2017 10:46 AM CDT CBC W/DIFF AUTOMATED Routine 07/13/2017 10:46 AM CDT CULTURE, BACTERIA, BLOOD TIMED 07/13/2017 10:44 AM CDT documented in this encounter Results * CULTURE URINE (07/13/2017 10:46 AM CDT) SPEC DESCRIPTION URINE CLEAN CATCH 07/13/2017 11:38 AM CDT [facility] SPECIAL REQUESTS NO SPECIAL REQUEST 07/13/2017 11:38 AM CDT [facility] CULTURE RESULT 33620CGX/MLST REPTOCOCCI, NON HEMOLYTIC 07/16/2017 12:29 PM CDT [facility] CULTURE RESULT 7000COL/MLSTR EPTOCOCCI, BETA HEMOLYTIC 07/16/2017 12:29 PM CDT [facility] CULTURE RESULT 2000COL/MLYEA STUREA NEGATIVE 07/16/2017 12:29 PM CDT [facility] CULTURE RESULT OTHER ORGANISMS PRESENT AT LESS THAN 1000 COL/ML. 07/16/2017 12:29 PM CDT [facility] URINE SPECIMEN OBTAINED BY CLEAN CATCH PROCEDURE / Unknown 07/13/2017 10:46 AM CDT 07/13/2017 11:38 AM CDT us Generic Conversion Md [facility] - GENERAL ORDERABLES Final Result [facility] [address] [place] [address], * (ABNORMAL) URINALYSIS WI REFLEX TO CULTURE (07/13/2017 10:46 AM CDT) COLOR (U) YELLOW 07/13/2017 11:35 AM CDT [facility] TRANSPARENCY CLEAR 07/13/2017 11:35 AM CDT [facility] SPECIFIC GRAVITY (U) 1.025 1.002 - 1.030 07/13/2017 11:35 AM CDT [facility] U PH 5.0 4.5 - 8 07/13/2017 11:35 AM T [facility] LEUKOCYTES (U) 1+(A) NEGATIVE 07/13/2017 11:35 AM [facility] NITRITES NEGATIVE NEGATIVE 07/13/2017 11:35 AM [facility] PROTEIN (U) NEGATIVE NEGATIVE 07/13/2017 11:35 AM T [facility] URINE GLUCOSE 4+(A) NEGATIVE 07/13/2017 11:35 AM [facility] KETONES MG/DL (U) NEGATIVE NEGATIVE 07/13/2017 11:35 AM [facility] UROBILINOGEN NORMAL NORMAL EU/DL 07/13/2017 11:35 AM [facility] BILIRUBIN (U) NEGATIVE NEGATIVE 07/13/2017 11:35 AM [facility] BLOOD (U) NEGATIVE NEGATIVE 07/13/2017 11:35 AM [facility] WBC/HPF 0-5 /HPF 07/13/2017 11:35 AM [facility] CULTURE & SENSITIVITY INDICATED? SPECIMEN SETUP FOR CULTURE 07/13/2017 11:35 AM [facility] RBC/HPF 0-2 /HPF 07/13/2017 11:35 AM [facility] BACTERIA (U) 1+ /HPF 07/13/2017 11:35 AM [facility] MUCUS 2+ 07/13/2017 11:35 AM [facility] 07/13/2017 10:4 6 AM CDT 07/13/2017 10:48 AM CDT us Generic Conversion Md [facility] URINE ORDERABLES Final Result [facility] [address] [place] [address], [place] [phone] * (ABNORMAL) CBC W/DIFF AUTOMATED (07/13/2017 10:46 AM CDT) WBC 4.8 4.8 - 10.8 x10'3/uL 07/13/2017 11:58 AM CDT [facility] RBC 4.98 4.50 - 5.90 x10'6/uL 07/13/2017 11:58 AM CDT [facility] HGB 14.8 13.5 - 17.5 G/DL 07/13/2017 11:58 AM CDT [facility] HCT 43.3 41 - 53 % 07/13/2017 11:58 AM CDT [facility] MCV 86.9 80 - 100 FL 07/13/2017 11:58 AM CDT [facility] MCH 29.7 26.0 - 34.0 PG 07/13/2017 11:58 AM CDT [facility] MCHC 34.2 31.0 - 37.0 G/DL 07/13/2017 11:58 AM T [facility] RDW 12.5 11.5 - 14.5 % 07/13/2017 11:58 AM T [facility] PLT 135(L) 150 - 350 x10'3/uL 07/13/2017 11:58 AM T [facility] CBC COMMENT AUTOMATED RBC MORPHOLOGY AND PLATELET EVALUATION NORMAL 07/13/2017 11:58 AM T [facility] NEUTROPHILS % 48.7(L) 50 - 70 % 07/13/2017 11:58 AM T [facility] LYMPHOCYTES % 34.1 18 - 42 % 07/13/2017 11:58 AM CDT [facility] MONOCYTES % 14.7(H) 2.0 - 11.0 % 07/13/2017 11:58 AM CDT [facility] EOSINOPHILS 2.3 1.0 - 3.0 % 07/13/2017 11:58 AM CDT [facility] BASOPHILS 0.2 0.0 - 1.0 % 07/13/2017 11:58 AM CDT [facility] ABS. NEUTROPHILS TOTAL 2.36 1.69 - 7.81 x10'3/uL 07/13/2017 11:58 AM CDT [facility] 07/13/2017 10:4 6 AM CDT 07/13/2017 10:48 AM CDT us Generic Conversion Md [facility] Final R esult Performing Organization Address [facility] de Phone Number [facility] [address] [place] [address], [place] [phone] * CULTURE, BACTERIA, BLOOD (07/13/2017 10:44 AM CDT) SPEC DESCRIPTION BLOOD 07/13/2017 1:57 PM CDT [facility] SPECIAL REQUESTS [facility] [id number] 07/13/2017 1:57 PM CDT [facility] CULTURE RESULT NO GROWTH 5 DAYS 07/18/2017 10:56 AM CDT [facility] BLOOD SPECIMEN OBTAINED FOR BLOOD CULTURE / Unknown 07/13/2017 10:44 AM CDT 07/13/2017 10:47 AM CDT us Generic Conversion Md [facility] - GENERAL ORDERABLES Final Result Performing Organization Address [facility] Co de Phone Number [facility] [address] [place] [address], [place] [phone] documented in this encounter Visit Diagnoses Diagnosis Fever Fever, unspecified documented in this encounter
--- OUTSIDE RECORDS SUMMARY | 2024-03-13 11:15 | XMS_ITS | Encounter Summary ---
Author Organization [facility] Address [address] [place] [address]. [place] [address] [place] [address] Care Team Providers Care Machine Wiper Name Role Phone Unavailable Primary Care Provider Unavailabl e Encounter Details Date Type Department Care Team (Late st Contact Info) Description 05/11/2017 Abstract [facility] [address] [address] Social History Tobacco Use Types Packs/Day Years [...] st Contact Info) Description 04/03/2024 1:00 PM ENROLLMENT COORDINATOR Office Visit [facility] Multispecialty Care - [facility] [address] [place] [address] Moriah Hammond NP 3 [facility] [address] [place] [address] documented as of this encounter Procedures Procedure Name Priority Date/Time Associated Diagnosis Comments DRUG SCREEN RAPID Routine 05/11/2017 9:3 2 AM CDT documented in this encounter Results * (ABNORMAL) DRUG SCREEN RAPID (05/11/2017 9:32 AM CDT) AMPHETAMINE (U) NONE DETECTED NONE DETECTED 05/11/2017 9:51 AM CDT [facility] BARBITURATES SCREEN (U) NONE DETECTED NONE DETECTED 05/11/2017 9:51 AM CDT [facility] BENZODIAZEPINES SCREEN (U) NONE DETECTED NONE DETECTED 05/11/2017 9:51 AM [facility] BUPRENORPHINE SCREEN (U) NONE DETECTED NONE DETECTED 05/11/2017 9:51 AM [facility] COCAINE METABOLITES (U) NONE DETECTED NONE DETECTED 05/11/2017 9:51 AM [facility] METHAMPHETAMINE (U) NONE DETECTED NONE DETECTED 05/11/2017 9:51 AM [facility] METHADONE (U) NONE DETECTED NONE DETECTED 05/11/2017 9:51 AM [facility] OPIATE SCREEN (U) DETECTED(A) NONE DETECTED 05/11/2017 9:51 AM [facility] Comment:SENT TO [facility] FOR CONFIRMATION OXYCODONE SCREEN (U) NONE DETECTED NONE DETECTED 05/11/2017 9:51 AM [facility] PHENCYCLIDINE PCP (U) NONE DETECTED NONE DETECTED 05/11/2017 9:51 AM [facility] PROPOXYPHENE SCREEN (U) NONE DETECTED NONE DETECTED 05/11/2017 9:51 AM [facility] CANNABINOIDS SCREEN (U) DETECTED(A) NONE DETECTED 05/11/2017 9:51 AM [facility] Comment:SENT TO [facility] FOR CONFIRMATION TRICYCLIC ANTIDEPRESSANT SCREEN (U) NONE DETECTED NONE DETECTED 05/11/2017 9:51 AM [facility] Comment: ??NOTE: RESULTS OF THIS DRUG SCREEN SHOULD BE USED FOR MEDICAL PURPOSES ONLY AND NOT FOR LEGAL OR EMPLOYMENT PURPOSES. POSITIVE RESULTS ARE CONFIRMED BY [facility]. ??MEDICATIONS CONTAINING EPHEDRINE MAY CAUSE FALSE POSITIVE AMPHETAMINE. ??AMPHETAMINE- ?500 NG/ML BARBITURATE- ?200 NG/ML BENZODIAZEPINE- ?? 150 NG/ML BUPRENORPHINE- ? 10 NG/ML COCAINE- ?150 NG/ML METHAMPHETAMINES- 500 NG/ML METHADONE- ?200 NG/ML OPIATE- ? 100 NG/ML OXYCODONE- ?100 NG/ML PCP- ? 25 NG/ML PROPOXYPHENE- ?300 NG/ML THC- ? 50 NG/ML TCA- ?300 NG/ML 05/11/2017 9:32 AM CDT 05/11/2017 9:33 AM CDT us Generic Conversion Md [place] URINE ORDERABLES Final Result Performing Organization Address City/State/[facility] Co de Phone Number [facility] [address] [place] [address], documented in this encounter Visit Diagnoses Diagnosis Pain in left knee Pain in joint, lower leg documented in this encounter
--- OUTSIDE RECORDS SUMMARY | 2024-03-13 11:15 | XMS_ITS | Encounter Summary ---
Author Organization [facility] Address [address] [place] [address]. [place] [address] [place] [address] Care Team Providers Care Mold Shop Supervisor Name Role Phone Unavailable Primary Care Provider Unavailabl e Encounter Details Date Type Department Care Team (Late st Contact Info) Description 08/25/2017 Abstract [facility] Conversion Md, Generic Conversion, Social History [...] st Contact Info) Description 04/03/2024 1:00 PM DRAWBENCH OPERATOR HELPER Office Visit [facility] Medical [facility] Multispecialty Care - [facility] [address] [place] [address] Moriah Hammond NP 3 [facility] [address] [place] [address] documented as of this encounter Visit Diagnoses Not on filedocumented in this encounter
--- OUTSIDE RECORDS SUMMARY | 2024-03-13 11:15 | XMS_ITS | Encounter Summary ---
Author Organization [facility] Address [address] [place] [address]. [place] [address] [place] [address] Care Team Providers Care Nurse Wound Name Role Phone Unavailable Primary Care Provider Unavailabl e Encounter Details Date Type Department Care Team (Late st Contact Info) Description 07/13/2017 Abstract [facility] Conversion Md, Generic Conversion, Social History Tobacco Use Types Packs/Day Years Used Date Smoking Tobacco: Never Assessed Sex and Gender Information Value Date Recorded Sex Assigned at Not on file Legal Sex Male 7:39 PM CDT Gender Identity Not on file Sexual Orientation Not on file documented as of this encounter Last Filed Vital Signs Vital Sign Reading Time Taken Comments Blood Pressure 120/78 07/13/2017 9:42 AM CDT Pulse 72 07/13/2017 9:42 AM CDT Temperature - - Respiratory Rate - - Oxygen Saturation - - Inhaled Oxygen Concentration - - Weight 82.6 kg (182 lb) 07/13/2017 9:42 AM CDT Height 160 cm (5' 3 ) 07/13/2017 9:42 AM CDT Body Mass Index 32.24 07/13/2017 9:42 AM CDT documented in this encounter Progress Notes * Linda Leon NP - 07/13/2017 12:00 AM CDT CHIEF COMPLAINT The Chief Complaint is: Fever x 3 days- cough past few days - feeling tired & achy. HISTORY OF PRESENT ILLNESS Patient comes in with c/o fever (up to 101), fatigue and muscle aches x3 days and a cough x2. noteshe began having constipation on Tuesday along with urinary retention and dysuria, states his urine stream is not powerful, but instead dribbles. started taking OTC laxatives last night, notes stomach has been gurgling but he has not had a BM since Tuesday. reports good PO (fluid and food), denies nausea. continues to get steroid shots for chronic back pain, last on 4/23 and feels like he has had these urinary symptoms since then. notes he received a shot for his right lower back pain. CURRENT MEDICATION ? Amitriptyline HCl 50MG Oral Tablet 1 Every bedtime, 90 days, 1 refills ? Atorvastatin Calcium 80 MG Oral Tablet Once a day- LAB REQUIRED FOR REFILLdiscontinue simvastatin, 30 days, 1 refills ? GlipiZIDE ER 5MG Oral Tablet Extended Release 24 Hour Once a day-LAB REQUIRED FOR REFILL, 30 days, 1 refills ? Hydrocodone-Acetaminophen 10-325MG Oral Tablet 1 q6h prn pain., 15 days, 0 refills ? MetFORMIN HCl 1000MG Oral Tablet Take 1 tablet twice daily, 90 days, 1 refills SOCIAL HISTORY Behavioral: Smoking status: Former smoker. ALLERGIES ? No Known Allergies REVIEW OF SYSTEMS Systemic: Feeling poorly (malaise) and fever. No recent weight change. Head: No headache. Neck: No neck pain and no neck stiffness. Eyes: No vision problems. Otolaryngeal: No earache, no nasal discharge, and no sore throat. Cardiovascular: No chest pain or discomfort. Pulmonary: No dyspnea. Cough. No wheezing. Gastrointestinal: Gastrointestinal symptoms. Normal appetite, no nausea, and no abdominal pain. Change in bowel habit. No diarrhea. Genitourinary: Genitourinary symptoms - retention. No increase in urinary frequency. Dysuria. Endocrine: No polydipsia and no excessive sweating. Musculoskeletal: Muscle aches. No localized joint pain and no localized joint stiffness. Neurological: No dizziness, no vertigo, and no fainting. Psychological: No sleep disturbances. Skin: No pruritus. No skin lesions. PHYSICAL FINDINGS ? Vitals taken 07/13/2017 09:42 am BP-Sitting L 120/78 mmHg BP Cuff Size Regular Pulse Rate-Sitting 72 bpm Pulse Rhythm Regular Respiration Rate 20 per min Temp-Oral 97.9 F Height 63 in Weight 182 lbs Body Mass Index 32.2 kg/m2 Body Surface Area 1.86 m2 Oxygen Saturation 98 % General Appearance: ?? Well developed. ?? Well nourished - appears tired, pale. Neck: Suppleness: ?? Neck demonstrated no decrease in suppleness. Eyes: General/bilateral: Extraocular Movements: ?? Normal. Pupils: ?? PERRLA. Nose: General/bilateral: Discharge: ?? No nasal discharge seen. Sinus Tenderness: ?? No sinus tenderness. Lymph Nodes: ?? Supraclavicular lymph nodes were not enlarged. Chest: ?? No thoracic asymmetry was noted. Lungs: ?? Normal breath sounds/voice sounds. Cardiovascular: Heart Rate And Rhythm: ?? Normal. Back: ? Back: - right flank. ? Tenderness on palpation. Abdomen: Auscultation: ? Bowel sounds were abnormal. ? Bowel sounds were hyperactive. Palpation: ?? Abdominal non-tender. Musculoskeletal System: General/bilateral: ?? Overall findings were normal. Neurological: ?? Oriented to time, place, and person. Sensation: ?? No sensory exam abnormalities were noted. Gait And Stance: ?? Normal. Skin: ?? General appearance was normal. TESTS Microbiology: Culture: Viral culture for influenza (rapid) was not type A and was not type B. ASSESSMENT 1.) Fever 2.) Dysuria 3.) Constipation 4.) Diabetes mellitus, type 2 with hyperglycemia PLAN ? Fever, unspecified Lab: Culture Blood Instructions: hold CBC for blood cx Lab: CBC w/Diff and Platelet Cnt Instructions: hold CBC for blood cx Lab: x Chest Xray Instructions: hold CBC for blood cx Lab: Urinalysis W/Reflex CX Instructions: hold CBC for blood cx ? Type 2 diabetes mellitus with hyperglycemia Blood Glucose Monitor System w/Device kit, Check blood glucose twice daily, 30 days, 0 refills Test strips/misc STRP box, Check blood glucose twice daily, 30 days, 0 refills flu swab negative today in office. dysuria may still be from high blood sugars, will repeat UA/cx. ordered CXR, CBC and blood cx for further eval, will notify pt of results. ordered blood glucose test kit/strips, instructed pt to check glucose twice daily and keep a log. increase water intake for constipation. pt discussed with regarding f/u as I will be out on leave starting 07/15. 07/14- labs WNL, except 4+ glucose in urine. initial blood culture results negative and CXR results not available as of today. pt should continue treatment plan as discussed otherwise otherwise instructed by . Linda Turner APN Electronically signed by: Linda Turner Date: 07/14/2017 20:20 Electronically approved by: Darwin Cooper MD Date: 05/18/18 07:29 E PLANER documented in this encounter Plan of Treatment Upcoming Encounters Date Type Department Care Team (Late st Contact Info) Description 04/03/2024 1:00 PM FLAME PLANER Office Visit [facility] Medical Group Multispecialty Care - [facility] [address] [place] [address] Moriah Hammond NP 3 [facility] [address] [place] [address] documented as of this encounter Procedures Procedure Name Priority Date/Time Associated Diagnosis Comments URINALYSIS WI REFLEX TO CULTURE Routine 07/13/2017 10:46 AM CDT URINE BACTERIA CULTURE Routine 07/13/2017 10:46 AM CDT CBC W/DIFF AUTOMATED Routine 07/13/2017 10:46 AM CDT CULTURE, BACTERIA, BLOOD Routine 07/13/2017 10:44 AM CDT documented in this encounter Results * CULTURE URINE (07/13/2017 10:46 AM CDT) SPEC DESCRIPTION URINE CLEAN CATCH [facility] TO EPIC CONVERSION SPECIAL REQUESTS NO SPECIAL REQUEST [facility] TO EPIC CONVERSION CULTURE RESULT SEE NOTE [facility] OUP TO EPIC CONVERSION Comment: [id number] COL/ML STREPTOCOCCI, NON HEMOLYTIC 7000 COL/ML STREPTOCOCCI, BETA HEMOLYTIC 2000 COL/ML YEAST UREA NEGATIVE OTHER ORGANISMS PRESENT AT LESS THAN 1000 COL/ML. REPORT STATUS FINAL 07/15/2017 [facility] TO EPIC CONVERSION 07/13/2017 10:4 6 AM CDT 07/13/2017 10:46 AM CDT Narrative [facility] TO EPIC CONVERSION - 07/13/2017 10:46 AM CDT [AUTO]: This test result was updated. us Linda Turner NP MICROBIOLOGY - GENERAL ORDERABL ES Final Result [facility] TO EPIC CONVERSION * (ABNORMAL) URINALYSIS WI REFLEX TO CULTURE (07/13/2017 10:46 AM CDT) COLOR (U) YELLOW [facility] T O EPIC CONVERSION TRANSPARENCY CLEAR [facility] P TO EPIC CONVERSION SPECIFIC GRAVITY (U) 1.025 1.002 - 1.030 [facility] TO EPIC CONVERSION U PH 5.0 4.5 - 8 [facility] T O EPIC CONVERSION LEUKOCYTES (U) 1+(>) NEG [facility] OUP TO EPIC CONVERSION NITRITES NEGATIVE NEG [facility] T O EPIC CONVERSION PROTEIN (U) NEGATIVE NEG [facility] TO EPIC CONVERSION URINE GLUCOSE 4+(>) NEG [facility] UP TO EPIC CONVERSION KETONES MG/DL (U) NEGATIVE NEG [facility] TO EPIC CONVERSION UROBILINOGEN NORMAL NORM EU/DL [facility] TO EPIC CONVERSION BILIRUBIN (U) NEGATIVE NEG [facility] UP TO EPIC CONVERSION BLOOD (U) NEGATIVE NEG [facility] T O EPIC CONVERSION WBC/HPF 0-5 /HPF [facility] T O EPIC CONVERSION CULTURE & SENSITIVITY INDICATED? SPECIMEN SETUP FOR CULTURE [facility] TO EPIC CONVERSION RBC/HPF 0-2 /HPF [facility] T O EPIC CONVERSION BACTERIA (U) 1+ /HPF [facility] P TO EPIC CONVERSION MUCUS 2+ [facility] T O EPIC CONVERSION 07/13/2017 10:4 6 AM CDT 07/13/2017 10:46 AM CDT Narrative [facility] TO EPIC CONVERSION - 07/13/2017 10:46 AM CDT [Task Forwarded to [address] [place] [address]] I discussed this pt with on 07/13. labs ok except for urine glucose remains at 4+, waiting on CXR results. ?? please consult with in regards to changes in treatment plan. thank you! us Linda Turner NP URINE ORDERABLES Final Result [facility] TO EPIC CONVERSION * (ABNORMAL) CBC W/DIFF AUTOMATED (07/13/2017 10:46 AM CDT) WBC 4.8 4.8 - 10.8 x10'3/uL [facility] TO EPIC CONVERSION RBC 4.98 4.50 - 5.90 x10'6/uL [facility] TO EPIC CONVERSION HGB 14.8 13.5 - 17.5 G/DL [facility] TO EPIC CONVERSION HCT 43.3 41 - 53 % [facility] T O EPIC CONVERSION MCV 86.9 80 - 100 FL [facility] TO EPIC CONVERSION MCH 29.7 26.0 - 34.0 PG [facility] TO EPIC CONVERSION MCHC 34.2 31.0 - 37.0 G/DL [facility] TO EPIC CONVERSION RDW 12.5 11.5 - 14.5 % [facility] TO EPIC CONVERSION PLT 135(L) 150 - 350 x10'3/uL [facility] TO EPIC CONVERSION COMMENT AUTOMATED RBC MORPHOLOGY AND PLATELET EVALUATION NORMAL [facility] TO EPIC CONVERSION NEUTROPHILS % 48.7(L) 50 - 70 % [facility] UP TO EPIC CONVERSION LYMPHOCYTES 34.1 18 - 42 % [facility] TO EPIC CONVERSION MONOCYTES 14.7(H) 2.0 - 11.0 % [facility] TO EPIC CONVERSION EOSINOPHILS 2.3 1.0 - 3.0 % [facility] TO EPIC CONVERSION BASOPHILS 0.2 0.0 - 1.0 % [facility] TO EPIC CONVERSION ABS. NEUTROPHILS 2.36 1.69 - 7.81 x10'3/uL [facility] TO EPIC CONVERSION 07/13/2017 10:4 6 AM CDT 07/13/2017 10:46 AM CDT Linda Turner NP LABORATORY Final Result [facility] TO EPIC CONVERSION * CULTURE, BACTERIA, BLOOD (07/13/2017 10:44 AM CDT) SPEC DESCRIPTION BLOOD [facility] TO EPIC CONVERSION SPECIAL REQUESTS NO SPECIAL REQUEST [facility] TECH [id number] [facility] TO EPIC CONVERSION CULTURE RESULT NO GROWTH 5 DAYS [facility] TO EPIC CONVERSION REPORT STATUS FINAL 07/18/2017 [facility] TO EPIC CONVERSION 07/13/2017 10:4 4 AM CDT 07/13/2017 10:44 AM CDT Narrative [facility] TO EPIC CONVERSION - 07/13/2017 10:44 AM CDT [AUTO]: This test result was reprocessed. Linda Turner NP MICROBIOLOGY - GENERAL ORDERABL ES Final Result [facility] TO EPIC CONVERSION documented in this encounter Visit Diagnoses Not on filedocumented in this encounter
--- OUTSIDE RECORDS SUMMARY | 2024-03-13 11:15 | XMS_ITS | Encounter Summary ---
Author Organization [facility] Address [address] [place] [address]. [place] [address] [place] [address] Care Team Providers Care Hat Presser Name Role Phone Unavailable Primary Care Provider Unavailabl e Encounter Details Date Type Department Care Team (Late st Contact Info) Description 08/17/2017 Abstract [facility] [address] [place], [place] [id number] Social History Tobacco Use Types Packs/Day Years [...] st Contact Info) Description 04/03/2024 1:00 PM METEOROLOGICAL ENGINEER Office Visit [facility] Medical [facility] Multispecialty Care - [facility] [address] [facility], [address] [place] [address] Moriah Hammond NP 3 [facility] [address] [place] [address] documented as of this encounter Visit Diagnoses Diagnosis Radiculopathy of thoracic region Thoracic or lumbosacral neuritis or radiculitis, unspecified documented in this encounter
--- OUTSIDE RECORDS SUMMARY | 2024-03-13 11:15 | XMS_ITS | Encounter Summary ---
Author Organization [facility] Address [address] [place] [address]. [place] [address] [place] [address] Care Team Providers Care Manufacturing Technician Name Role Phone Unavailable Primary Care Provider Unavailabl e Encounter Details Date Type Department Care Team (Late st Contact Info) Description 07/28/2017 Abstract [facility] [address] [place] [address] Darwin Cooper MD [address] [place] [address] Social History Tobacco Use Types [...] st Contact Info) Description 04/03/2024 1:00 PM SOLAR SYSTEMS DESIGNER Office Visit [facility] Medical Group Multispecialty Care - [facility] [address] [facility], [address] [place] [address] Moriah Hammond NP 3 [facility] [address] [place] [address] documented as of this encounter Visit Diagnoses Diagnosis Type 2 diabetes mellitus with hyperglycemia ([facility]/HCC [facility]/HCC) Type II or unspecified type diabetes mellitus without mention of complication, not stated as uncontrolled documented in this encounter
--- OUTSIDE RECORDS SUMMARY | 2024-03-13 11:15 | XMS_ITS | Encounter Summary ---
Author Organization [facility] Address [address] [place] [address]. [place] [address] [place] [address] Care Team Providers Care Conveyor Line Battery Charger Name Role Phone Unavailable Primary Care Provider Unavailabl e Encounter Details Date Type Department Care Team (Late st Contact Info) Description 07/06/2017 Abstract [facility] [address] [place], [place] [id number] Social History Tobacco Use Types Packs/Day Years [...] st Contact Info) Description 04/03/2024 1:00 PM QUARRY PLUG AND FEATHER DRILLER Office Visit [facility] Medical Group Multispecialty Care - [facility] [address] [facility], [address] [place] [address] Moriah Hammond NP 3 [facility] [address] [place] [address] documented as of this encounter Visit Diagnoses Diagnosis Radiculopathy of thoracic region Thoracic or lumbosacral neuritis or radiculitis, unspecified documented in this encounter
--- OUTSIDE RECORDS SUMMARY | 2024-03-13 11:15 | XMS_ITS | Encounter Summary ---
Author Organization [facility] Address [address] [place] [address]. [place] [address] [place] [address] Care Team Providers Care Straddle Bug Driver Name Role Phone Unavailable Primary Care Provider Unavailabl e Encounter Details Date Type Department Care Team (Late st Contact Info) Description 04/13/2017 Abstract [facility] Conversion Md, Generic Conversion, Social [...] st Contact Info) Description 04/03/2024 1:00 PM BEAUTY SPECIALIST Office Visit [facility] Medical Group Multispecialty Care - [facility] [address] [place] [address] Moriah Hammond NP 3 [facility] [address] [place] [address] documented as of this encounter Visit Diagnoses Not on filedocumented in this encounter
--- OUTSIDE RECORDS SUMMARY | 2024-03-13 11:15 | XMS_ITS | Encounter Summary ---
Author Organization [facility] Address [address] [place] [address]. [place] [address] [place] [address] Care Team Providers Care Horizontal Boring Mill Operator Name Role Phone Unavailable Primary Care Provider Unavailabl e Encounter Details Date Type Department Care Team (Late st Contact Info) Description 10/09/2017 Abstract [facility] Conversion Md, Generic Conversion, Social History [...] st Contact Info) Description 04/03/2024 1:00 PM HOME OFFICE CLAIM SPECIALIST Office Visit [facility] Medical Group Multispecialty Care - [facility] [address] [place] [address] oMriah Hammond NP 3 [facility] [address] [place] [address] documented as of this encounter Visit Diagnoses Not on filedocumented in this encounter
--- OUTSIDE RECORDS SUMMARY | 2024-03-13 11:15 | XMS_ITS | Encounter Summary ---
Author Organization [facility] Address [address] [place] [address]. [place] [address] [place] [address] Care Team Providers Care Tube Backer Name Role Phone Unavailable Primary Care Provider Unavailabl e Encounter Details Date Type Department Care Team (Late st Contact Info) Description 08/25/2017 Abstract [facility] [address] [place] [address] Darwin Cooper MD [address] [place], [place] [id number] Social History Tobacco Use Types Packs/Day Years [...] st Contact Info) Description 04/03/2024 1:00 PM BOARD LINING MACHINE OPERATOR Office Visit [facility] Medical Group Multispecialty Care - [facility] [address] [facility], [address] [place] [address] Moriah Hammond NP 3 [facility] [address] [place] [address] documented as of this encounter Visit Diagnoses Diagnosis Type 2 diabetes mellitus with hyperglycemia ([facility]/HCC [facility]/HCC) Type II or unspecified type diabetes mellitus without mention of complication, not stated as uncontrolled documented in this encounter
--- OUTSIDE RECORDS SUMMARY | 2024-03-13 11:15 | XMS_ITS | Encounter Summary ---
Author Organization [facility] Address [address] [place] [address]. [place] [address] [place] [address] Care Team Providers Care Hiv Cts Specialist Name Role Phone Unavailable Primary Care Provider Unavailabl e Encounter Details Date Type Department Care Team (Late st Contact Info) Description 06/28/2017 Abstract [facility] Conversion Md, Generic Conversion, Social [...] st Contact Info) Description 04/03/2024 1:00 PM CONTROL ROOM AGENT Office Visit [facility] Medical Group Multispecialty Care - [facility] [address] [facility] [place] [address] Moriah Hammond NP 3 [facility] [address] [place] [address] documented as of this encounter Visit Diagnoses Not on filedocumented in this encounter
--- OUTSIDE RECORDS SUMMARY | 2024-03-13 11:15 | XMS_ITS | Encounter Summary ---
Author Organization [facility] Address [address] [place] [address]. [place] [address] [place] [address] Care Team Providers Care Labor Representative Name Role Phone Unavailable Primary Care Provider Unavailabl e Encounter Details Date Type Department Care Team (Late st Contact Info) Description 07/19/2017 Abstract [facility] Conversion Md, Generic Conversion, Social History [...] st Contact Info) Description 04/03/2024 1:00 PM CHIEF CONTRACT OFFICER Office Visit [facility] Medical Group Multispecialty Care - [facility] [address] [place] [address] Moriah Hammond NP 3 [facility] [address] [place] [address] documented as of this encounter Visit Diagnoses Not on filedocumented in this encounter
--- OUTSIDE RECORDS SUMMARY | 2024-03-13 11:15 | XMS_ITS | Encounter Summary ---
Author Organization [facility] Address [address] [place] [address]. [place] [address] [place] [address] Care Team Providers Care Prototype Special Build Name Role Phone Unavailable Primary Care Provider Unavailabl e Encounter Details Date Type Department Care Team (Late st Contact Info) Description 07/28/2017 Abstract [facility] Conversion Md, Generic Conversion, [...] st Contact Info) Description 04/03/2024 1:00 PM INCLUSION INTERN Office Visit [facility] - [facility] [address] [facility] [address] [place] [address] Moriah Hammond NP [address] [facility] [address] [place] [address] documented as of this encounter Visit Diagnoses Not on filedocumented in this encounter
--- OUTSIDE RECORDS SUMMARY | 2024-03-13 11:15 | XMS_ITS | Encounter Summary ---
Author Organization [facility] Address [address] [place] [address]. [place] [address] [place] [address] Care Team Providers Care Managed Care Provider Name Role Phone Unavailable Primary Care Provider Unavailabl e Encounter Details Date Type Department Care Team (Late st Contact Info) Description 07/19/2017 Abstract [facility] [address] [place] [address] NeighborsDarwin MD [address] [place] [address] Social History Tobacco Use Types Packs/Day Years [...] st Contact Info) Description 04/03/2024 1:00 PM EVAPORATOR REPAIRER Office Visit [facility] Medical Group Multispecialty Care - [facility] [address] [facility], [address] [place] [address] Moriah Hammond NP 3 [facility] [address] [place] [address] documented as of this encounter Procedures Procedure Name Priority Date/Time Associated Diagnosis Comments HEMOGLOBIN, GLYCOSYLATED Routine 07/19/2017 10:52 AM CDT PROSTATE SPECIFIC ANTIGEN,SCREENING Routine 07/19/2017 10:52 AM CDT documented in this encounter Results * PROSTATE SPECIFIC ANTIGEN,SCREENING (07/19/2017 10:52 AM CDT) PSA 0.25 <4.0 NG/ML 07/19/2017 12:13 PM CDT [facility] Comment: Test was performed using the Siemens method. ??Results obtained with other assay methods or kits cannot be used interchangeably with results obtained by the Siemens method. SERUM OR PLASMA SPECIMEN / Unknown 07/19/2017 10:52 AM CDT 07/19/2017 10:53 AM CDT us Generic Conversion Md [facility] Final R esult [facility] [address] [place] [address], [place] [phone] * (ABNORMAL) HEMOGLOBIN, GLYCOSYLATED (07/19/2017 10:52 AM CDT) HGB A1C 12.0(H) <5.7 % 07/20/2017 1:27 PM CDT [facility] Comment: ADA GUIDELINES 92402.7 TO 6.4% INCREASED RISK OF DIABETES> OR = 6.5% CONSISTENT WITH DIABETES TESTING PERFORMED [facility] [place], [place] [address] WHOLE BLOOD SPECIMEN / Unknown 07/19/2017 10:52 AM CDT 07/19/2017 10:53 AM CDT us Generic Conversion Md [facility] Final R esult [facility] [address] [place] [address], [place] [phone] documented in this encounter Visit Diagnoses Diagnosis Type 2 diabetes mellitus without complications (CMS/HCC HHS/HCC) Type II or unspecified type diabetes mellitus without mention of complication, not stated as uncontrolled documented in this encounter
--- OUTSIDE RECORDS SUMMARY | 2024-03-13 11:15 | XMS_ITS | Encounter Summary ---
Author Organization [facility] Address [address] [place] [address]. [place] [address] [place] [address] Care Team Providers Care Community Resource Officer Name Role Phone Unavailable Primary Care Provider Unavailabl e Encounter Details Date Type Department Care Team (Late Contact Info) Description 07/21/2017 Abstract [facility] Conversion Darwin Cooper MD [address] [place] [address] Social History Tobacco Use Types Packs/Day Years Used Date Smoking Tobacco: Never Assessed Sex and Gender Information Value Date Recorded Sex Assigned at Not on file Legal Sex Male 7:39 PM CDT Gender Identity Not on file Sexual Orientation Not on file documented as of this encounter Progress Notes * Darwin Cooper MD - 07/21/2017 12:00 AM CDT Date: 07/21/2017 Name: Cam Hernandez : 1970 Age: 47 Telephone conversation with patient regarding A1C results from 07/19/17-per Dr. Cooper results show glucose levels of >350-patient reports that he is taking prescribed medic ation as ordered and will work on diet more closely-does have upcoming appointment with the manager switch-informed patient that if levels do not improve that Dr. cooper may need to start patient on insulin. Patient voiced understanding. Note entered by Yana Reddy RN STOCK SHOWMAN documented in this encounter Plan of Treatment Upcoming Encounters Date Type Department Care Team (Late Contact Info) Description 04/03/2024 1:00 PM LIVESTOCK SHOWMAN Office Visit [facility] Medical Group Multispecialty Care - [address], [address] [place] [address] Moriah Hammond, MOMO [address] [address] documented as of this encounter Visit Diagnoses Not on filedocumented in this encounter
--- OUTSIDE RECORDS SUMMARY | 2024-03-13 11:15 | XMS_ITS | Encounter Summary ---
Author Organization [facility] Address [address] [place] [address]. [place] [address] [place] [address] Care Team Providers Care Fig Caprifier Name Role Phone Unavailable Primary Care Provider Unavailabl e Encounter Details Date Type Department Care Team (Late st Contact Info) Description 09/19/2017 Abstract [facility] Conversion Darwin Cooper MD [address] [place] [address] Social History Tobacco Use Types Packs/Day Years Used Date Smoking Tobacco: Never Assessed Sex and Gender Information Value Date Recorded Sex Assigned at Not on file Legal Sex Male 7:39 PM CDT Gender Identity Not on file Sexual Orientation Not on file documented as of this encounter Progress Notes * Darwin Cooper MD - 09/19/2017 12:00 AM CDT Date: 09/19/2017 Name: Cam Hernandez : 1970 Age: 47 Spoke with pt regarding post epidural steroid injections. Pt made aware to monitor his blood sugarsand if it is tending to stay above 250 then he should contact our office. Continue t o watch diet also; limiting carbs and sugars. Pt voiced understanding. Note entered by Camille Buckner RN OR DEPARTMENT documented in this encounter Plan of Treatment Upcoming Encounters Date Type Department Care Team (Late st Contact Info) Description 04/03/2024 1:00 PM EDITOR DEPARTMENT Office Visit [facility] Medical [facility] Multispecialty Care - [facility] 3 [facility] [address] [place] [address] Moriah Hammond NP 3 [facility] [address] [place] [address] documented as of this encounter Visit Diagnoses Not on filedocumented in this encounter
--- OUTSIDE RECORDS SUMMARY | 2024-03-13 11:15 | XMS_ITS | Encounter Summary ---
Author Organization [facility] Address [address] [place] [address]. [place] [address] [place] [address] Care Team Providers Care Eyelet Punch Operator Name Role Phone Unavailable Primary Care Provider Unavailabl e Encounter Details Date Type Department Care Team (Late st Contact Info) Description 04/13/2017 Abstract [facility] [address] [address] Social History Tobacco Use Types [...] st Contact Info) Description 04/03/2024 1:00 PM COKE DRAWER Office Visit [facility] Medical Group Multispecialty Care - [facility] [address] [facility] [address] [place] [address] Moriah Hammond NP 3 [facility] [address] [place] [address] documented as of this encounter Procedures Procedure Name Priority Date/Time Associated Diagnosis Comments DRUG SCREEN RAPID Routine 04/13/2017 10: 01 AM COKE DRAWER documented in this encounter Results * (ABNORMAL) DRUG SCREEN RAPID (04/13/2017 10:01 AM COKE DRAWER) AMPHETAMINE (U) NONE DETECTED NONE DETECTED 04/13/2017 10:30 AM COKE DRAWER [facility] BARBITURATES SCREEN (U) NONE DETECTED NONE DETECTED 04/13/2017 10:30 AM COKE DRAWER [facility] BENZODIAZEPINES SCREEN (U) NONE DETECTED NONE DETECTED 04/13/2017 10:30 AM [facility] BUPRENORPHINE SCREEN (U) NONE DETECTED NONE DETECTED 04/13/2017 10:30 AM [facility] COCAINE METABOLITES (U) NONE DETECTED NONE DETECTED 04/13/2017 10:30 AM [facility] METHAMPHETAMINE (U) NONE DETECTED NONE DETECTED 04/13/2017 10:30 AM [facility] METHADONE (U) NONE DETECTED NONE DETECTED 04/13/2017 10:30 AM [facility] OPIATE SCREEN (U) DETECTED(A) NONE DETECTED 04/13/2017 10:30 AM [facility] Comment:SENT TO [facility] FOR CONFIRMATION OXYCODONE SCREEN (U) NONE DETECTED NONE DETECTED 04/13/2017 10:30 AM [facility] PHENCYCLIDINE PCP (U) NONE DETECTED NONE DETECTED 04/13/2017 10:30 AM [facility] PROPOXYPHENE SCREEN (U) NONE DETECTED NONE DETECTED 04/13/2017 10:30 AM [facility] CANNABINOIDS SCREEN (U) DETECTED(A) NONE DETECTED 04/13/2017 10:30 AM [facility] Comment:SENT TO [facility] FOR CONFIRMATION TRICYCLIC ANTIDEPRESSANT SCREEN (U) NONE DETECTED NONE DETECTED 04/13/2017 10:30 AM [facility] Comment: ??NOTE: RESULTS OF THIS [...] THC- ? 50 NG/ML TCA- ?300 NG/ML 04/13/2017 10:0 1 AM COKE DRAWER 04/13/2017 10:02 AM COKE DRAWER us Generic Conversion Md [facility] ORDERABLES Final Result [facility] [address] [place] [address], documented in this encounter Visit Diagnoses Diagnosis Pain in thoracic spine documented in this encounter
--- OUTSIDE RECORDS SUMMARY | 2024-03-13 11:15 | XMS_ITS | Encounter Summary ---
Author Organization [facility] Address [address] [place] [address]. [place] [address] [place] [address] Care Team Providers Care Pilling Machine Operator Name Role Phone Unavailable Primary Care Provider Unavailabl e Encounter Details Date Type Department Care Team (Late st Contact Info) Description 10/09/2017 Abstract [facility] Emergency Room [address] [place], [place] [id number] Raysa Hawk MD [address] [place] [id number] Social History Tobacco Use Types Packs/Day Years [...] st Contact Info) Description 04/03/2024 1:00 PM SERICULTURIST Office Visit [facility] Medical Group Multispecialty Care - [facility] [address] [facility], [address] [place] [address] Moriah Hammond NP 3 [facility] [address] [place] [address] documented as of this encounter Procedures Procedure Name Priority Date/Time Associated Diagnosis Comments BASIC METABOLIC PANEL STAT 10/09/2017 9:15 PM CDT CBC W/DIFF AUTOMATED STAT 10/09/2017 9:15 PM CDT documented in this encounter Results * CBC W/DIFF AUTOMATED (10/09/2017 9:15 PM CDT) [facility] Signature WBC 8.4 4.4 - 11.0 x10'3/uL 10/09/2017 9:23 PM T [facility] RBC 5.14 4.50 - 5.90 x10'6/uL 10/09/2017 9:23 PM T [facility] HGB 15.4 14.0 - 17.5 G/DL 10/09/2017 9:23 PM T [facility] HCT 45.8 41.5 - 50.4 % 10/09/2017 9:23 PM T [facility] MCV 89.1 80.0 - 96.0 FL 10/09/2017 9:23 PM T [facility] MCH 30.0 26.5 - 31.4 PG 10/09/2017 9:23 PM T [facility] MCHC 33.6 31.9 - 34.8 G/DL 10/09/2017 9:23 PM T [facility] RDW 12.8 12.3 - 14.3 % 10/09/2017 9:23 PM T [facility] PLT 177 151 - 353 x10'3/uL 10/09/2017 9:23 PM T [facility] MPV 11.1 9.7 - 11.9 FL 10/09/2017 9:23 PM T [facility] RBC MORPHOLOGY NORMAL 10/09/2017 9:23 PM T [facility] PLT MORPH. NORMAL 10/09/2017 9:23 PM T [facility] WBC MORPHOLOGY NORMAL 10/09/2017 9:23 PM T [facility] LYMPHOCYTES % 28.7 15.8 - 45.0 % 10/09/2017 9:23 PM T [facility] NEUTROPHILS % 62.8 42.1 - 71.9 % 10/09/2017 9:23 PM CDT [facility] MONOCYTES % 7.0 5.7 - 12.5 % 10/09/2017 9:23 PM CDT [facility] EOSINOPHILS 1.1 0.0 - 5.6 % 10/09/2017 9:23 PM CDT [facility] BASOPHILS 0.2 0.0 - 1.3 % 10/09/2017 9:23 PM CDT [facility] ABS. NEUTROPHILS TOTAL 5.30 1.40 - 6.00 x10'3/uL 10/09/2017 9:23 PM CDT [facility] IMMATURE GRANS % 0.2 0.0 - 0.5 % 10/09/2017 9:23 PM CDT [facility] ABS. LYMPHOCYTES 2.42 0.80 - 4.70 x10'3/uL 10/09/2017 9:23 PM CDT [facility] 10/09/2017 9:15 PM CDT 10/09/2017 9:20 PM CDT us Generic Conversion Md [facility] Final R esult [facility] [address] [place] [address], [place] [phone] * (ABNORMAL) BASIC METABOLIC PANEL (10/09/2017 9:15 PM CDT) GLUCOSE 132(H) 70 - 99 MG/DL 10/09/2017 9:35 PM CDT [facility] BUN 18 7 - 18 MG/DL 10/09/2017 9:35 PM CDT [facility] CREATININE S/P/B 1.05 0.7 - 1.3 MG/DL 10/09/2017 9:35 PM CDT [facility] SODIUM S/P/B 139 136 - 145 MMOL/L 10/09/2017 9:35 PM CDT [facility] POTASSIUM S/P/B 4.3 3.5 - 5.1 MMOL/L 10/09/2017 9:35 PM CDT [facility] CHLORIDE S/P/B 103 100 - 108 MMOL/L 10/09/2017 9:35 PM CDT [facility] CO2 26.5 21 - 32 MMOL/L 10/09/2017 9:35 PM CDT [facility] CALCIUM S/P/B 9.6 8.5 - 10.1 MG/DL 10/09/2017 9:35 PM T [facility] ANION GAP 13.8 8 - 20 MMOL/L 10/09/2017 9:35 PM T [facility] BUN CREATININE RATIO 17.1 6 - 26 10/09/2017 9:35 PM T [facility] EGFR NON-AFR. AMER. 84(L) >90 ML/MIN/1.7 3 M2 10/09/2017 9:35 PM T [facility] EGFR AFR. AMER. >90 >90 ML/MIN/1.7 3 M2 10/09/2017 9:35 PM T [facility] Comment: NOTE: eGFR is not calculated for patients <18 years of age. This is an estimated GFR (CKD EPI) and should not be used for calculating drug doses. 10/09/2017 9:15 PM CDT 10/09/2017 9:20 PM CDT us Generic Conversion Md [facility] Final R esult [facility] [address] [place] [address], [place] [phone] documented in this encounter Visit Diagnoses Diagnosis Polyneuropathy Unspecified hereditary and idiopathic peripheral neuropathy documented in this encounter
--- OUTSIDE RECORDS SUMMARY | 2024-03-13 11:15 | XMS_ITS | Encounter Summary ---
Author Organization [facility] Address [address] [place] [address]. [place] [address] [place] [address] Care Team Providers Care Supervisor Instrument Mechanics Name Role Phone Unavailable Primary Care Provider Unavailabl e Encounter Details Date Type Department Care Team (Late st Contact Info) Description 10/27/2017 Abstract [facility] [address] [place] [address] Darwin Cooper MD [address] [place], [place] [id number] Social History Tobacco Use Types Packs/Day Years [...] st Contact Info) Description 04/03/2024 1:00 PM SALESPERSON USED CARS Office Visit [facility] Medical Group Multispecialty Care - [facility] [address] [facility], [address] [place] [address] Moriah Hammond NP 3 [facility] [address] [place] [address] documented as of this encounter Visit Diagnoses Diagnosis Type 2 diabetes mellitus with hyperglycemia ([facility]/HCC [facility]/HCC) Type II or unspecified type diabetes mellitus without mention of complication, not stated as uncontrolled documented in this encounter
--- OUTSIDE RECORDS SUMMARY | 2024-03-13 11:15 | XMS_ITS | Encounter Summary ---
Author Organization [facility] Address [address] [place] [address]. [place] [address] [place] [address] Care Team Providers Care Press Operator Heavy Duty Name Role Phone Unavailable Primary Care Provider Unavailabl e Encounter Details Date Type Department Care Team (Late st Contact Info) Description 07/13/2017 Abstract [facility] Conversion Md, Generic Conversion, Social History [...] st Contact Info) Description 04/03/2024 1:00 PM TOY DESIGNER Office Visit [facility] Medical Group Multispecialty Care - [facility] 3 [facility] [address] [place] [address] Moriah Hammond NP 3 [facility] [address] [place] [address] documented as of this encounter Visit Diagnoses Not on filedocumented in this encounter
--- OUTSIDE RECORDS SUMMARY | 2024-03-13 11:15 | XMS_ITS | Encounter Summary ---
Author Organization [facility] Address [address] [place] [address]. [place] [address] [place] [address] Care Team Providers Care Trommel Tender Name Role Phone Unavailable Primary Care Provider Unavailabl e Encounter Details Date Type Department Care Team (Late st Contact Info) Description 07/19/2017 Abstract [facility] Conversion Md, Generic Conversion, Social History [...] Mass Index 32.24 07/19/2017 9:38 AM CDT documented in this encounter Progress Notes * Darwin Cooper MD - 07/19/2017 12:00 AM CDT ACTIVE PROBLEMS ? Benign Prostatic Hypertrophy ? 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 Diabetes Mellitus - type 2, poorly controlled CHIEF COMPLAINT The Chief Complaint is: Urinating a lot,pain in pelvic. HISTORY OF PRESENT ILLNESS Cam Hernandez is a 47 year old male. Has been having increased urination sx. for a few months. He thinks that it is due to his spinal injections that he is receiving, but has been having sx. for longer than he has been getting injections. Has not been eating a diabetic diet when questioned as to exactly what he is consuming. CURRENT MEDICATION ? Amitriptyline HCl 50MG Oral Tablet 1 Every bedtime, 90 days, 1 refills ? Atorvastatin Calcium 80 MG Oral Tablet Once a day- LAB REQUIRED FOR REFILLdiscontinue simvastatin, 30 days, 1 refills ? Blood Glucose Monitor System w/Device Kit Check blood glucose twice daily, 30 days, 0 refills ? GlipiZIDE ER 5MG Oral Tablet Extended Release 24 Hour Once a day-LAB REQUIRED FOR REFILL, 30 days, 1 refills ? Hydrocodone-Acetaminophen 10-325MG Oral Tablet 1 q6h prn pain., 15 days, 0 refills ? Test strips/misc STRP Strip Check blood glucose twice daily, 30 days, 0 refills SOCIAL HISTORY Behavioral: Smoking status: Former [...] Pulmonary: No dyspnea. Cough. No wheezing. Gastrointestinal: Normal appetite, no nausea, no abdominal pain, and no diarrhea . Constipation still present. Genitourinary: Genitourinary symptoms - retention. No increase in urinary frequency. Dysuria. Endocrine: No polydipsia and no excessive sweating. Musculoskeletal: Muscle aches . Back pains as before. Is scheduled for another injection Tuesday. Neurological: No dizziness, no vertigo, and no fainting. Psychological: No sleep disturbances. Skin: No pruritus. No skin lesions. PHYSICAL FINDINGS ? Vitals taken 07/19/2017 09:38 am BP-Sitting L 110/70 mmHg BP Cuff Size Regular Pulse Rate-Sitting 83 bpm Respiration Rate 20 per min Temp-Oral 98.3 F Height 63 in Weight 182 lbs Body Mass Index 32.2 kg/m2 Body Surface Area 1.86 m2 Oxygen Saturation 94 % General Appearance: ?? Well developed. ?? [...] Skin: ?? General appearance was normal. TESTS Urinalysis Was Performed: All urinalysis results are normal. Urine pH 5.5 and specific gravity 1.025. Normal urine protein. Urine glucose 1000. Normal urine bilirubin. Urine urobilinogen 0.2. Normal urine nitrate, negative for ketones, negative for leukocyte esterase, and negative for blood. ASSESSMENT ? Benign prostatic hypertrophy Start Flomax. ? Diabetes mellitus Continue same meds. Check Hgb A1c. Referral to special education paraeducator. ? Chronic pain syndrome Referred to pain clinic for chronic narcotics. We will not continue to refill them. Told to not smoke pot (states that it helps his leg spasms) as he will be rejected. If he wishes to continue this, he should discuss medical maijyolisa with them PLAN ? Enlarged prostate with lower urinary tract symptoms Flomax 0.4 MG capsule, Once a day, 90 days, 1 refills Darwin Cooper MD Electronically signed by: Darwin Cooper MD Date: 07/19/2017 11:59 Electronically approved by: Darwin Cooper MD Date: 07/19/17 11:59 CLE MECHANIC documented in this encounter Miscellaneous Notes * Letter - Darwin Cooper MD - 07/19/2017 12:00 AM CDT 07-19-2017 Cam Hernandez [address] [place] [address] : 1970 Electrocardiograph Technician and Diabetic Nurse Consult E11.65: Type 2 diabetes mellitus with hyperglycemia CLE MECHANIC documented in this encounter Plan of Treatment Upcoming Encounters Date Type Department Care Team (Late st Contact Info) Description 04/03/2024 1:00 PM BICYCLE MECHANIC Office Visit [facility] Medical Group Multispecialty Care - [facility] [address] [facility] [address] [place] [address] Moriah Hammond NP 3 [facility] [address] [place] [address] documented as of this encounter Procedures Procedure Name Priority Date/Time Associated Diagnosis Comments HEMOGLOBIN, GLYCOSYLATED Routine 07/19/2017 10:52 AM CDT PROSTATE SPECIFIC ANTIGEN,SCREENING Routine 07/19/2017 10:52 AM CDT documented in this encounter Results * PROSTATE SPECIFIC ANTIGEN,SCREENING (07/19/2017 10:52 AM CDT) PSA 0.25 <4.0 NG/ML [facility] Comment: Test was performed using the Siemens method. ??Results obtained with other assay methods or kits cannot be used interchangeably with results obtained by the Siemens method. 07/19/2017 10:5 2 AM CDT 07/19/2017 10:52 AM CDT Darwin Cooper MD LABORATORY Final Resul t [facility] CONVERSION * (ABNORMAL) HEMOGLOBIN, GLYCOSYLATED (07/19/2017 10:52 AM CDT) HGB A1C 12.0(H) <5.7 % [facility] T O EPIC CONVERSION Comment: ADA GUIDELINES 2010 5.7 TO 6.4% INCREASED RISK OF DIABETES > OR 6.5% CONSISTENT WITH DIABETES ?? TESTING PERFORMED AT [address] ??[id number] 07/19/2017 10:5 2 AM CDT 07/19/2017 10:52 AM CDT Narrative [facility] CONVERSION - 07/19/2017 10:52 AM CDT [Task Forwarded to Min garland] This means his sugars are almost always >350. ??Is he even taking his meds? ??We need to discuss insulin if he is not going to get serious about diet and exercise. us Darwin Cooper MD LABORATORY Final Resul t [facility] CONVERSION documented in this encounter Visit Diagnoses Not on filedocumented in this encounter
--- OUTSIDE RECORDS SUMMARY | 2024-03-13 11:15 | XMS_ITS | Encounter Summary ---
Author Organization [facility] Address [address] [place] [address]. 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 Office Visit [facility] Multispecialty Care - [facility] [address] [facility], [address] [place] [address] Moriah Hammond NP 3 [facility] [address] [place] [address] documented as of this encounter Procedures Procedure Name Priority Date/Time Associated Diagnosis Comments URINALYSIS WI REFLEX TO CULTURE Routine 06/28/2017 10:20 AM CDT TSH W/REFLEX Routine 06/28/2017 10:20 AM CDT PROSTATE SPECIFIC ANTIGEN,SCREENING Routine 06/28/2017 10:20 AM CDT COMPREHENSIVE METABOLIC PANEL Routine 06/28/2017 10:20 AM CDT LIPID PANEL Routine 06/28/2017 10:20 AM CDT CBC W/DIFF AUTOMATED Routine 06/28/2017 10:20 AM CDT TESTOSTERONE, TOTAL Routine 06/28/2017 1 0:20 AM CDT documented in this encounter Results * (ABNORMAL) URINALYSIS WI REFLEX TO CULTURE (06/28/2017 10:20 AM CDT) COLOR (U) YELLOW 06/28/2017 5:22 PM CDT [facility] TRANSPARENCY CLEAR 06/28/2017 5:22 PM CDT [facility] SPECIFIC GRAVITY (U) 1.020 1.002 - 1.030 06/28/2017 5:22 PM CDT [facility] U PH 5.0 4.5 - 8 06/28/2017 5:22 PM CDT [facility] LEUKOCYTES (U) NEGATIVE NEGATIVE 06/28/2017 5:22 PM T [facility] NITRITES NEGATIVE NEGATIVE 06/28/2017 5:22 PM CDT [facility] PROTEIN (U) NEGATIVE NEGATIVE 06/28/2017 5:22 PM T [facility] URINE GLUCOSE 4+(A) NEGATIVE 06/28/2017 5:22 PM CDT [facility] KETONES MG/DL (U) 2+(A) NEGATIVE 06/28/2017 5:22 PM CDT [facility] UROBILINOGEN NORMAL NORMAL EU/DL 06/28/2017 5:22 PM CDT [facility] BILIRUBIN (U) NEGATIVE NEGATIVE 06/28/2017 5:22 PM CDT [facility] BLOOD (U) NEGATIVE NEGATIVE 06/28/2017 5:22 PM CDT [facility] WBC/HPF 0-5 /HPF 06/28/2017 5:22 PM CDT [facility] CULTURE & SENSITIVITY INDICATED? CULTURE IS NOT INDICATED 06/28/2017 5:22 PM CDT [facility] BACTERIA (U) TRACE /HPF 06/28/2017 5:22 PM CDT [facility] 06/28/2017 10:2 0 AM CDT 06/28/2017 3:32 PM CDT us Generic Conversion Md [facility] URINE ORDERABLES Final Result Performing Organization Address [facility] Co de Phone Number [facility] [address] [place] [address], [place] [phone] * TSH W/REFLEX (06/28/2017 10:20 AM CDT) TSH 1.680 0.358 - 3.74 uIU/ML 06/28/2017 4:43 PM CDT [facility] Comment: HIGH DOSES OF BIOTIN MAY INTERFERE WITH THIS TEST RESULT. CORRELATION TO CLINICAL HISTORY AND PRESENTATION RECOMMENDED.FREE T4 NOT INDICATED SERUM OR PLASMA SPECIMEN / Unknown 06/28/2017 10:20 AM CDT 06/28/2017 3:32 PM CDT us Generic Conversion Md [facility] Final R esult Performing Organization Address [facility] Co de Phone Number [facility] [address] [place] [address], [place] [phone] * PROSTATE SPECIFIC ANTIGEN,SCREENING (06/28/2017 10:20 AM CDT) PSA 0.23 <4.0 NG/ML 06/28/2017 4:43 PM CDT [facility] Comment: Test was performed using the Siemens method. ??Results obtained with other assay methods or kits cannot be used interchangeably with results obtained by the Siemens method. SERUM OR PLASMA SPECIMEN / Unknown 06/28/2017 10:20 AM CDT 06/28/2017 3:32 PM CDT us Generic Conversion Md [facility] Final R esult Performing Organization Address City/[facility]/ZIP Co de Phone Number [facility] [address] [place] [address], [place] [phone] * TESTOSTERONE, TOTAL (06/28/2017 10:20 AM CDT) Pathologist [facility] TESTOSTERONE TOTAL 464 250 - 1,100 ng/dL 07/03/2017 5:00 AM CDT [employer] [place] [place] Comment: For more information on this test, go tohttp://education.ExactCost/faq/TotalTestosteroneLCMSMSThis test was developed and its analytical performancecharacteristics have been determined by [employer] [place], [place]. It hasnot been cleared or approved by the U.S. Food and DrugAdministration. This assay has been validated pursuantto the CLIA regulations and is used for clinicalpurposes.Test Performed by [facility],[employer] [place],[address] [place] [id number] Banda M.D., Ph.D., Director of [phone], CLIA [id number] SERUM SPECIMEN / Unknown 06/28/2017 10:20 AM CDT 06/28/2017 3:32 PM CDT us Generic Conversion Md [facility] Final R esult Performing Organization Address City/[facility]/ZIP Co de Phone Number [employer] , [place] [phone] * (ABNORMAL) LIPID PANEL (06/28/2017 10:20 AM CDT) CHOLESTEROL 239(H) <200 MG/DL 06/28/2017 4:43 PM [facility] TRIGLYCERIDES 254(H) <150 MG/DL 06/28/2017 4:43 PM [facility] HDL 37(L) >40.0 MG/DL 06/28/2017 4:43 PM [facility] LDL (CALCULATED) 151.2(H) <100 MG/L 06/29/19 18 4:43 PM [facility] NON HDL CHOLESTEROL 202(H) <130 MG/DL 06/28/2017 4:43 PM [facility] Comment: NOTE: WHEN THE TRIGLYCERIDES ARE >200 mg/dL, NON HDL C IS A SECONDARY TARGET OF THERAPY, WITH A GOAL 30 mg/dL HIGHER THAN THE IDENTIFIED LDL C GOAL. CHOL/HDL RATIO 6.5(H) 0.0 - 4.5 06/28/2017 4:43 PM [facility] VLDL CALCULATION 51 5 - 55 MG/DL 06/28/2017 4:43 PM [facility] LIPID INTERPRETATION 06/28/2017 4:43 PM [facility] Comment: NIH CONCENSUS REPORT RECOMMENDATIONS: ?ADULT ? CHILD ??LOW RISK: ?CHOLESTEROL ? <200 ? <170 ? TRIGLYCERIDE ?<150 ?--- ?HDL ? >=60 ?--- ?LDL ? <100 ? <110 ?? BORDERLINE: ?CHOLESTEROL ? 200-239 ?? 170-199 ?TRIGLYCERIDE ?150-199 ? --- ?HDL ? 40-59 ?--- ?LDL ? 100-159 ?? 110- 129 ?? HIGH RISK: ? CHOLESTEROL ? >=240 ?>=200 ?TRIGLYCERIDE ?>=200 ? --- ?HDL ?<40 ?--- ?LDL ? >=160 ?>=130 06/28/2017 10:2 0 AM CDT 06/28/2017 3:32 PM CDT us Generic Conversion Md [facility] Final R esult Performing Organization Address City/State/[facility] Co de Phone Number [facility] [address] [place] [address], * (ABNORMAL) COMPREHENSIVE METABOLIC PANEL (06/28/2017 10:20 AM CDT) GLUCOSE 302(H) 70 - 99 MG/DL 06/28/2017 4:43 PM CDT [facility] BUN 11 7 - 18 MG/DL 06/28/2017 4:43 PM CDT [facility] CREATININE S/P/B 0.82 0.7 - 1.3 MG/DL 06/28/2017 4:43 PM CDT [facility] SODIUM S/P/B 136 136 - 145 MMOL/L 06/28/2017 4:43 PM [facility] POTASSIUM S/P/B 4.0 3.5 - 5.1 MMOL/L 06/28/2017 4:43 PM [facility] CHLORIDE S/P/B 98(L) 100 - 108 MMOL/L 06/28/2017 4:43 PM [facility] CO2 27.5 21 - 32 MMOL/L 06/28/2017 4:43 PM [facility] CALCIUM S/P/B 9.4 8.5 - 10.1 MG/DL 06/28/2017 4:43 PM [facility] BILIRUBIN TOTAL S/P/B 1.0 0.2 - 1.2 MG/DL 06/28/2017 4:43 PM [facility] TOTAL PROTEIN S/P/B 7.1 6.4 - 8.2 G/DL 06/28/2017 4:43 PM [facility] ALBUMIN S/P/B 4.2 3.4 - 5.0 G/DL 06/28/2017 4:43 PM [facility] AST 23 15 - 37 U/L 06/28/2017 4:43 PM [facility] ALT 43 16 - 60 U/L 06/28/2017 4:43 PM [facility] ALKALINE PHOSPHATASE S/P/B 110 50 - 136 U/L 06/28/2017 4:43 PM [facility] ANION GAP 14.5 8 - 20 MMOL/L 06/28/2017 4:43 PM [facility] BUN CREATININE RATIO 13.4 6 - 26 06/28/2017 4:43 PM [facility] A/G RATIO 1.4 1.0 - 2.0 RATIO 06/28/2017 4:43 PM [facility] EGFR NON-AFR. AMER. >90 >90 ML/MIN/1.7 3 M2 06/28/2017 4:43 PM CDT [facility] EGFR AFR. AMER. >90 >90 ML/MIN/1.7 3 M2 06/28/2017 4:43 PM CDT [facility] Comment: NOTE: eGFR is not calculated for patients <18 years of age. This is an estimated GFR (CKD EPI) and should not be used for calculating drug doses. 06/28/2017 10:2 0 AM CDT 06/28/2017 3:32 PM CDT us Generic Conversion Md [facility] Final R esult [facility] [address] [place] [address], [place] [phone] * CBC W/DIFF AUTOMATED (06/28/2017 10:20 AM CDT) WBC 7.2 4.8 - 10.8 x10'3/uL 06/28/2017 3:56 PM CDT [facility] RBC 5.26 4.50 - 5.90 x10'6/uL 06/28/2017 3:56 PM CDT [facility] HGB 15.7 13.5 - 17.5 G/DL 06/28/2017 3:56 PM CDT [facility] HCT 45.4 41 - 53 % 06/28/2017 3:56 PM CDT [facility] MCV 86.3 80 - 100 FL 06/28/2017 3:56 PM CDT [facility] MCH 29.8 26.0 - 34.0 PG 06/28/2017 3:56 PM CDT [facility] MCHC 34.6 31.0 - 37.0 G/DL 06/28/2017 3:56 PM CDT [facility] RDW 12.7 11.5 - 14.5 % 06/28/2017 3:56 PM CDT [facility] PLT 189 150 - 350 x10'3/uL 06/28/2017 3:56 PM T [facility] CBC COMMENT AUTOMATED RBC MORPHOLOGY AND PLATELET EVALUATION NORMAL 06/28/2017 3:56 PM CDT [facility] NEUTROPHILS % 59.7 50 - 70 % 06/28/2017 3:56 PM T [facility] LYMPHOCYTES % 29.8 18 - 42 % 06/28/2017 3:56 PM CDT [facility] MONOCYTES % 9.2 2.0 - 11.0 % 06/28/2017 3:56 PM CDT [facility] EOSINOPHILS 1.0 1.0 - 3.0 % 06/28/2017 3:56 PM T [facility] BASOPHILS 0.3 0.0 - 1.0 % 06/28/2017 3:56 PM T [facility] ABS. NEUTROPHILS TOTAL 4.31 1.69 - 7.81 x10'3/uL 06/28/2017 3:56 PM T [facility] 06/28/2017 10:2 0 AM CDT 06/28/2017 3:32 PM CDT us Generic Conversion Md [facility] Final R esult [facility] [address] [place] [address], [place] [phone] documented in this encounter Visit Diagnoses Diagnosis Other fatigue documented in this encounter
--- OUTSIDE RECORDS SUMMARY | 2024-03-13 11:15 | XMS_ITS | Encounter Summary ---
Author Organization [facility] Address [address] [place] [address]. 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
--- OUTSIDE RECORDS SUMMARY | 2024-03-13 11:15 | XMS_ITS | Encounter Summary ---
Author Organization [facility] Address [address] [place] [address]. [place] [address] [place] [address] Care Team Providers Care Ladle Patcher Name Role Phone Unavailable Primary Care Provider Unavailabl e Encounter Details Date Type Department Care Team (Late st Contact Info) Description 06/28/2017 Abstract [facility] Conversion Md, Generic Conversion, Social [...] Sign Reading Time Taken Comments Blood Pressure 120/82 06/28/2017 9:24 AM CDT Pulse 78 06/28/2017 9:24 AM CDT Temperature - - Respiratory Rate - - Oxygen Saturation - - Inhaled Oxygen Concentration - - Weight 83 kg (183 lb) 06/28/2017 9:24 AM CDT Height 160 cm (5' 3 ) 06/28/2017 9:24 AM CDT Body Mass Index 32.42 06/28/2017 9:24 AM CDT documented in this encounter Progress Notes * Linda Leon NP - 06/28/2017 12:00 AM CDT CHIEF COMPLAINT The Chief Complaint is: Had steroid inj last tuesday and since is urinating more and feels very tired. HISTORY OF PRESENT ILLNESS Patient comes in with c/o frequent urination, dysuria, urinary retention, incontinence and fatigue.feels like his throat is dry, has been drinking more water. has some pelvic pain/pressure. reports he does not have to self-cath anymore. received a steroid injection last Tuesday (pain clinic in [place]) and notes symptoms started the next day. notes this is the first injection he has received for his back pain. denies any concern for infection around injection site and reports pain has been more controlled following injection. CURRENT MEDICATION ? Amitriptyline HCl 50MG Oral Tablet 1 Every bedtime, 90 days, 1 refills ? Hydrocodone-Acetaminophen 10-325MG Oral Tablet 1 q6h prn pain., 15 days, 0 refills ? MetFORMIN HCl 1000MG Oral Tablet Take 1 tablet twice daily, 90 days, 1 refills ? Simvastatin 40MG Oral Tablet 1 tablet every bedtime, 90 days, 1 refills PAST MEDICAL/SURGICAL HISTORY Reported: No recent change in medical history. SOCIAL HISTORY Social history unchanged. Behavioral: Not a current smoker. Smoking status: Current everyday smoker. ALLERGIES ? No Known Allergies REVIEW OF SYSTEMS Systemic: Feeling poorly (malaise). No recent weight change. Head: No headache. Neck: No neck pain and no neck stiffness. Eyes: No vision problems. Otolaryngeal: No earache, no nasal discharge, and no sore throat. Cardiovascular: No chest pain or discomfort. Pulmonary: No dyspnea, no cough, and no wheezing. Gastrointestinal: Normal appetite and no heartburn. No nausea, no abdominal pain, and no diarrhea. Genitourinary: Genitourinary symptoms - urinary retention, urinary frequency was increased, and dysuria. Endocrine: Polydipsia. No excessive sweating. Musculoskeletal: Pain localized to one or more joints - back and as a chronic condition. Neurological: No dizziness and no vertigo. Psychological: No sleep disturbances. Skin: No pruritus. No skin lesions. PHYSICAL FINDINGS ? Vitals taken 06/28/2017 09:24 am BP-Sitting L 120/82 mmHg BP Cuff Size Large Pulse Rate-Sitting 78 bpm Respiration Rate 16 per min Temp-Oral 98.3 F Height 63 in Weight 183 lbs Body Mass Index 32.4 kg/m2 Body Surface Area 1.86 m2 Oxygen Saturation 99 % General Appearance: ?? Well developed. ?? Well nourished. ?? In no acute distress. Neck: Suppleness: ?? Neck demonstrated no decrease in suppleness. Thyroid: ?? Showed no abnormalities. Eyes: General/bilateral: Extraocular Movements: ?? Normal. Pupils: ?? PERRLA. Ears: General/bilateral: External Auditory Canal: ?? External auditory meatus normal. Tympanic Membrane: ?? Normal. Nose: General/bilateral: Discharge: ?? No nasal discharge seen. Sinus Tenderness: ?? No sinus tenderness. Pharynx: Oropharynx: ?? Normal. Lymph Nodes: ?? Supraclavicular lymph nodes were not enlarged. Chest: ?? No thoracic asymmetry was noted. Lungs: ?? Normal breath sounds/voice sounds. Cardiovascular: Heart Rate And Rhythm: ?? Normal. Abdomen: Auscultation: ?? Bowel sounds were normal. Palpation: ? Abdominal tenderness - pelvic. Musculoskeletal System: General/bilateral: ?? Overall findings were normal. Neurological: ?? Oriented to time, place, and person. Sensation: ?? No sensory exam abnormalities were noted. Gait And Stance: ?? Normal. Skin: ?? General appearance was normal. ASSESSMENT ? Dysuria ? Fatigue THERAPY ? Diet. ? Regular exercise. PLAN ? Other GlipiZIDE ER 5 MG tablet, Once a day-LAB REQUIRED FOR REFILL, 30 days, 1 refills Atorvastatin Calcium 80 MG tablet, Once a day- LAB REQUIRED FOR REFILLdiscontinue simvastatin, 30 days, 1 refills ? Other fatigue Lab: Urinalysis W/Reflex CX Lab: CBC w/Diff and Platelet Cnt Lab: Comp metabolic panel Lab: Lipid profile Lab: PSA Lab: Testosterone Lab: TSH with reflex Free T4 Lab: Urinalysis W/Reflex CX ? Return to the clinic if condition worsens or new symptoms arise Discussed lab orders as we need to evaluate cause of fatigue and urinary symptoms, would like for pt to obtain soon so treatment can be adjusted as needed. pt verbalized understanding, will head to lab after appointment. 5/4- pt will be notified of labs of elevated glucose, lipid profile and glucose in the urine, will start glipizide and atorvastatin, d/c simvastatin. repeat labs in 6-8 weeks. Linda Turner APN Electronically signed by: Linda Turner Date: 07/01/2017 10:24 Electronically approved by: Darwin Cooper MD Date: 07/04/17 07:57 ER documented in this encounter Plan of Treatment Upcoming Encounters Date Type Department Care Team (Late st Contact Info) Description 04/03/2024 1:00 PM PAIRER Office Visit [facility] Medical Group Multispecialty Care - [address] [place] [address] Moriah Hammond, MOMO 3 [facility] [address] [place] [address] documented as of this encounter Procedures Procedure [...] CDT documented in this encounter Results * TSH W/REFLEX (06/28/2017 10:20 AM CDT) TSH ULTRASENSITIVE 1.680 0.358 - 3.74 uIU/ML [facility] TO EPIC CONVERSION Comment: HIGH DOSES OF BIOTIN MAY INTERFERE WITH THIS TEST RESULT. CORRELATION TO CLINICAL HISTORY AND PRESENTATION RECOMMENDED. FREE T4 NOT INDICATED 06/28/2017 10:2 0 AM CDT 06/28/2017 10:20 AM CDT Linda Turner NP LABORATORY Final Result [facility] TO [facility]IC CONVERSION * CBC W/DIFF AUTOMATED (06/28/2017 10:20 AM CDT) WBC 7.2 4.8 - 10.8 x10'3/uL [facility] TO EPIC CONVERSION RBC 5.26 4.50 - 5.90 x10'6/uL [facility] TO EPIC CONVERSION HGB 15.7 13.5 - 17.5 G/DL [facility] TO EPIC CONVERSION HCT 45.4 41 - 53 % [facility] T O EPIC CONVERSION MCV 86.3 80 - 100 FL [facility] TO EPIC CONVERSION MCH 29.8 26.0 - 34.0 PG [facility] TO EPIC CONVERSION MCHC 34.6 31.0 - 37.0 G/DL [facility] TO EPIC CONVERSION RDW 12.7 11.5 - 14.5 % [facility] TO [facility]IC CONVERSION PLT 189 150 - 350 x10'3/uL [facility] TO [facility]IC CONVERSION COMMENT AUTOMATED RBC MORPHOLOGY AND PLATELET EVALUATION NORMAL [facility] TO [facility]IC CONVERSION NEUTROPHILS % 59.7 50 - 70 % [facility] UP TO EPIC CONVERSION LYMPHOCYTES 29.8 18 - 42 % [facility] TO EPIC CONVERSION MONOCYTES 9.2 2.0 - 11.0 % [facility] TO EPIC CONVERSION EOSINOPHILS 1.0 1.0 - 3.0 % [facility] TO EPIC CONVERSION BASOPHILS 0.3 0.0 - 1.0 % [facility] TO EPIC CONVERSION ABS. NEUTROPHILS 4.31 1.69 - 7.81 x10'3/uL [facility] TO EPIC CONVERSION 06/28/2017 10:2 0 AM CDT 06/28/2017 10:20 AM CDT Linda Turner NP LABORATORY Final Result [facility] TO EPIC CONVERSION * (ABNORMAL) URINALYSIS WI REFLEX TO CULTURE (06/28/2017 10:20 AM CDT) COLOR (U) YELLOW [facility] T O EPIC CONVERSION TRANSPARENCY CLEAR [facility] P TO EPIC CONVERSION SPECIFIC GRAVITY (U) 1.020 1.002 - 1.030 [facility] TO [facility]IC CONVERSION U PH 5.0 4.5 - 8 [facility] T O EPIC CONVERSION LEUKOCYTES (U) NEGATIVE NEG [facility] OUP TO EPIC CONVERSION NITRITES NEGATIVE NEG [facility] T O EPIC CONVERSION PROTEIN (U) NEGATIVE NEG [facility] TO [facility] CONVERSION URINE GLUCOSE 4+(>) NEG [facility] UP TO EPIC CONVERSION KETONES MG/DL (U) 2+(>) NEG [facility] TO [facility]IC CONVERSION UROBILINOGEN NORMAL NORM EU/DL [facility] TO [facility]IC CONVERSION BILIRUBIN (U) NEGATIVE NEG [facility] UP TO EPIC CONVERSION BLOOD (U) NEGATIVE NEG [facility] T O EPIC CONVERSION WBC/HPF 0-5 /HPF [facility] T O EPIC CONVERSION CULTURE & SENSITIVITY INDICATED? CULTURE IS NOT INDICATED [facility] TO EPIC CONVERSION BACTERIA (U) TRACE /HPF [facility] P TO EPIC CONVERSION 06/28/2017 10:2 0 AM CDT 06/28/2017 10:20 AM CDT Narrative [facility] TO [facility] CONVERSION - 06/28/2017 10:20 AM CDT [Task Forwarded to 1 Camille] can you call this pt back regarding lab results? ??glucose-302, elevated lipid profile, 4+ glucose in urine. ??I called in script for glipizide 5mg daily he needs to start tomorrow. ??also change from simvastatin to Lipitor 80mg daily, start this tomorrow as well. ??I will give him 1 month with 1 refill, he needs repeat labs done in 6-8 weeks. ??I can mail order today. Linda Turner NP URINE ORDERABLES Final Result Performing Organization Address City/[facility]/ZIP Co de Phone Number [facility] TO EPIC CONVERSION * PROSTATE SPECIFIC ANTIGEN,SCREENING (06/28/2017 10:20 AM CDT) PSA 0.23 <4.0 NG/ML [facility] TO EPIC CONVERSION Comment: Test was performed using the Siemens method. ??Results obtained with other assay methods or kits cannot be used interchangeably with results obtained by the Siemens method. 06/28/2017 10:2 0 AM CDT 06/28/2017 10:20 AM CDT Linda Turner NP LABORATORY Final Result [facility] TO EPIC CONVERSION * (ABNORMAL) COMPREHENSIVE METABOLIC PANEL (06/28/2017 10:20 AM CDT) GLUCOSE 302(H) 70 - 99 MG/DL [facility] TO EPIC CONVERSION BUN 11 7 - 18 MG/DL [facility] TO EPIC CONVERSION CREATININE S/P/B 0.82 0.7 - 1.3 MG/DL [facility] TO EPIC CONVERSION SODIUM S/P/B 136 136 - 145 MMOL/L [facility] TO EPIC CONVERSION POTASSIUM S/P/B 4.0 3.5 - 5.1 MMOL/L [facility] TO EPIC CONVERSION CHLORIDE S/P/B 98(L) 100 - 108 MMOL/L [facility] TO EPIC CONVERSION TCO2 27.5 21 - 32 MMOL/L [facility] TO EPIC CONVERSION CALCIUM S/P/B 9.4 8.5 - 10.1 MG/DL [facility] TO EPIC CONVERSION BILIRUBIN TOTAL S/P/B 1.0 0.2 - 1.2 MG/DL [facility] TO EPIC CONVERSION TOTAL PROTEIN S/P/B 7.1 6.4 - 8.2 G/DL [facility] TO EPIC CONVERSION ALBUMIN S/P/B 4.2 3.4 - 5.0 G/DL [facility] TO EPIC CONVERSION AST 23 15 - 37 U/L [facility] TO EPIC CONVERSION ALT 43 16 - 60 U/L [facility] TO EPIC CONVERSION ALKALINE PHOSPHATASE S/P/B 110 50 - 136 U/L [facility] TO EPIC CONVERSION ANION GAP 14.5 8 - 20 MMOL/L [facility] TO EPIC CONVERSION BUN CREATININE RATIO 13.4 6 - 26 [facility] TO EPIC CONVERSION A/G RATIO 1.4 1.0 - 2.0 RATIO [facility] TO EPIC CONVERSION EGFR NON-AFR. AMER. >90 >90 ML/MIN/1. 73 M2 [facility] TO EPIC CONVERSION EGFR AFR. AMER. SEE NOTE >90 ML/MIN/1. 73 M2 [facility] TO EPIC CONVERSION Comment: >90 NOTE: eGFR is not calculated for patients <18 years of age. This is an estimated GFR (CKD EPI) and should not be used for calculating drug doses. 06/28/2017 10:2 0 AM CDT 06/28/2017 10:20 AM CDT us Linda Turner NP LABORATORY Final Result [facility] TO EPIC CONVERSION * (ABNORMAL) LIPID PANEL (06/28/2017 10:20 AM CDT) CHOLESTEROL 239(H) <200 MG/DL [facility] TO EPIC CONVERSION TRIGLYCERIDES 254(H) <150 MG/DL [facility] TO EPIC CONVERSION HDL 37(L) >40.0 MG/DL [facility] TO EPIC CONVERSION LDL (CALCULATED) 151.2(H) <100 MG/L [facility] TO EPIC CONVERSION NON HDL CHOLESTEROL 202(H) <130 MG/DL [facility] TO EPIC CONVERSION Comment: NOTE: WHEN THE TRIGLYCERIDES ARE >200 mg/dL, NON HDL C IS A SECONDARY TARGET OF THERAPY, WITH A GOAL 30 mg/dL HIGHER THAN THE IDENTIFIED LDL C GOAL. CHOL/HDL RATIO 6.5(H) 0.0 - 4.5 [facility] OUP TO EPIC CONVERSION VLDL CALCULATION 51 5 - 55 MG/DL [facility] TO EPIC CONVERSION INTERPRETATION SEE NOTE [facility] OUP TO EPIC CONVERSION Comment: [facility] REPORT RECOMMENDATIONS: ?ADULT ?CHILD ??LOW RISK: ?CHOLESTEROL ? <200 ? <170 ?TRIGLYCERIDE ?<150 ?--- HDL ? > 60 ?--- ?LDL ? <100 ? <110 ??BORDERLINE: ?CHOLESTEROL ? 200-239 ?? 170-199 ?TRIGLYCERIDE ?150-199 ? --- ?HDL ?40-59 ?--- ?LDL ? 100-159 ?? 110-129 ??HIGH RISK: CHOLESTEROL ? > 240 ?> 200 TRIGLYCERIDE ?> 200 ? --- ?HDL ?<40 ?--- LDL ? > 160 ?> 130 06/28/2017 10:2 0 AM CDT 06/28/2017 10:20 AM CDT Linda Turner NP LABORATORY Final Result Performing Organization Address City/[facility]/ZIP Co de Phone Number [facility] TO EPIC CONVERSION * TESTOSTERONE, TOTAL (06/28/2017 10:20 AM CDT) TESTOSTERONE TOTAL 464 [facility] TO EPIC CONVERSION Comment: Reference range: 250 to 1100 Unit: ng/dL For more information on this test, go to http://education.[employer]IXE[employer].Edifilm/faq/ TotalTestosteroneLCMSMS This test was developed and its analytical performance characteristics have been determined by [employer] [place], [place]. It has not been cleared or approved by the U.S. Food and Drug Administration. This assay has been validated pursuant to the CLIA regulations and is used for clinical purposes. Test Performed by [facility] [place], [facility], [address] [place] [address] Tk Banda M.D., Ph.D., Director of Laboratories , CLIA [id number] 06/28/2017 10:2 0 AM CDT 06/28/2017 10:20 AM CDT Linda Turner NP LABORATORY Final Result Performing Organization Address [facility]/ZIP Co de Phone Number [facility] TO EPIC CONVERSION documented in this encounter Visit Diagnoses Not on filedocumented in this encounter
--- OUTSIDE RECORDS SUMMARY | 2024-03-13 11:15 | XMS_ITS | Encounter Summary ---
Author Organization [facility] Address [address] [place] [address]. 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 [place] [address] Moriah Hammond NP 3 [facility] [address] [place] [address] documented as of this encounter Visit Diagnoses Not on filedocumented in this encounter
--- OUTSIDE RECORDS SUMMARY | 2024-03-13 11:15 | XMS_ITS | Encounter Summary ---
Author Organization [facility] Address [address] [place] [address]. [place] [address] [place] [address] Care Team Providers Care Clothing Busheler Name Role Phone Unavailable Primary Care Provider Unavailabl e Encounter Details Date Type Department Care Team (Late st Contact Info) Description 06/08/2017 Abstract [facility] Management [address] [address] Social History Tobacco Use Types [...] st Contact Info) Description 04/03/2024 1:00 PM SCHOOL GUIDANCE COUNSELOR Office Visit [facility] Medical Group Multispecialty Care - [facility] [address] [facility] [address] [place] [address] Moriah Hammond NP 3 [facility] [address] [place] [address] documented as of this encounter Procedures Procedure Name Priority Date/Time Associated Diagnosis Comments DRUG SCREEN RAPID Routine 06/27/2017 11: 18 AM CDT DRUG SCREEN RAPID Routine 06/08/2017 8:4 4 AM CDT documented in this encounter Results * (ABNORMAL) DRUG SCREEN RAPID (06/27/2017 11:18 AM CDT) AMPHETAMINE (U) NONE DETECTED NONE DETECTED 06/27/2017 11:23 AM CDT [facility] (H) [facility] BARBITURATES SCREEN (U) NONE DETECTED NONE DETECTED 06/27/2017 11:23 AM [facility] BENZODIAZEPINES SCREEN (U) NONE DETECTED NONE DETECTED 06/27/2017 11:23 AM [facility] BUPRENORPHINE SCREEN (U) NONE DETECTED NONE DETECTED 06/27/2017 11:23 AM [facility] COCAINE METABOLITES (U) NONE DETECTED NONE DETECTED 06/27/2017 11:23 AM [facility] METHAMPHETAMINE (U) NONE DETECTED NONE DETECTED 06/27/2017 11:23 AM [facility] METHADONE (U) NONE DETECTED NONE DETECTED 06/27/2017 11:23 AM [facility] OPIATE SCREEN (U) DETECTED(A) NONE DETECTED 06/27/2017 11:23 AM [facility] Comment:SENT TO [facility]FERENCE [facility] FOR CONFIRMATION OXYCODONE SCREEN (U) NONE DETECTED NONE DETECTED 06/27/2017 11:23 AM [facility] PHENCYCLIDINE PCP (U) NONE DETECTED NONE DETECTED 06/27/2017 11:23 AM [facility] PROPOXYPHENE SCREEN (U) NONE DETECTED NONE DETECTED 06/27/2017 11:23 AM [facility] CANNABINOIDS SCREEN (U) DETECTED(A) NONE DETECTED 06/27/2017 11:23 AM [facility] Comment:SENT TO [facility] FOR CONFIRMATION TRICYCLIC ANTIDEPRESSANT SCREEN (U) NONE DETECTED NONE DETECTED 06/27/2017 11:23 AM [facility] Comment: ??NOTE: RESULTS OF THIS DRUG [...] THC- ? 50 NG/ML TCA- ?300 NG/ML 06/27/2017 11:1 8 AM CDT 06/27/2017 11:19 AM CDT us Generic Conversion Md [facility] URINE ORDERABLES Final Result Performing Organization Address City/State/[facility] Co de Phone Number [facility] [address] [place] [address], * (ABNORMAL) DRUG SCREEN RAPID (06/08/2017 8:44 AM CDT) AMPHETAMINE (U) NONE DETECTED NONE DETECTED 06/08/2017 9:13 AM CDT [facility] BARBITURATES SCREEN (U) NONE DETECTED NONE DETECTED 06/08/2017 9:13 AM CDT [facility] BENZODIAZEPINES SCREEN (U) NONE DETECTED NONE DETECTED 06/08/2017 9:13 AM CDT [facility] BUPRENORPHINE SCREEN (U) NONE DETECTED NONE DETECTED 06/08/2017 9:13 AM CDT [facility] COCAINE METABOLITES (U) NONE DETECTED NONE DETECTED 06/08/2017 9:13 AM CDT [facility] METHAMPHETAMINE (U) NONE DETECTED NONE DETECTED 06/08/2017 9:13 AM CDT [facility] METHADONE (U) NONE DETECTED NONE DETECTED 06/08/2017 9:13 AM CDT [facility] OPIATE SCREEN (U) DETECTED(A) NONE DETECTED 06/08/2017 9:13 AM T [facility] Comment:SENT TO [facility] FOR CONFIRMATION OXYCODONE SCREEN (U) NONE DETECTED NONE DETECTED 06/08/2017 9:13 AM T [facility] PHENCYCLIDINE PCP (U) NONE DETECTED NONE DETECTED 06/08/2017 9:13 AM T [facility] PROPOXYPHENE SCREEN (U) NONE DETECTED NONE DETECTED 06/08/2017 9:13 AM T [facility] CANNABINOIDS SCREEN (U) DETECTED(A) NONE DETECTED 06/08/2017 9:13 AM T [facility] Comment:SENT TO [facility] FOR CONFIRMATION TRICYCLIC ANTIDEPRESSANT SCREEN (U) NONE DETECTED NONE DETECTED 06/08/2017 9:13 AM T [facility] Comment: ??NOTE: RESULTS [...] THC- ? 50 NG/ML TCA- ?300 NG/ML 06/08/2017 8:44 AM CDT 06/08/2017 8:47 AM CDT us Generic Conversion Md [facility] URINE ORDERABLES Final Result Performing Organization Address City/State/[facility] Co de Phone Number [facility] [address] [place] [address], [place] [phone] documented in this encounter Visit Diagnoses Diagnosis Pain in thoracic spine documented in this encounter
--- OUTSIDE RECORDS SUMMARY | 2024-03-13 11:15 | XMS_ITS | Encounter Summary ---
Author Organization [facility] Address [address] [place] [address]. [place] [address] [place] [address] Care Team Providers Care Tobacco Scrap Sifter Name Role Phone Unavailable Primary Care Provider Unavailabl e Encounter Details Date Type Department Care Team (Late st Contact Info) Description 07/01/2017 Abstract [facility] Conversion Linda Turner NP [address] [place] [address] Social History Tobacco Use Types Packs/Day Years Used Date Smoking Tobacco: Never Assessed Sex and Gender Information Value Date Recorded Sex Assigned at Not on file Legal Sex Male 7:39 PM CDT Gender Identity Not on file Sexual Orientation Not on file documented as of this encounter Progress Notes * Linda Leon NP - 07/01/2017 12:00 AM CDT Date: 07/01/2017 Name: Cam Hernandez : 1970 Age: 47 Telephone conversation with patient in regards to recent lab results. Per Linda, glucose level is302, elevated lipid profile, and 4+ glucose in urine. Linda would like to start glipizide 5mg daily starting tomorrow and a lso change from simvastatin to Lipitor 80mg daily, starting tomorrow as well. I will give him 1 month with 1 refill; he needs repeat labs done in 6-8 weeks. Linda printed lab order and mailed to pt. Patient voic ed understanding of conversation. Note entered by Camille Buckner RN ICULTURE PROFESSOR documented in this encounter Plan of Treatment Upcoming Encounters Date Type Department Care Team (Late st Contact Info) Description 04/03/2024 1:00 PM SILVICULTURE PROFESSOR Office Visit [facility] Medical Group Multispecialty Care - [facility] [address] [facility] [place] [id number] Moriah Hammond NP 3 [facility] [address] [place] [address] documented as of this encounter Visit Diagnoses Not on filedocumented in this encounter
--- OUTSIDE RECORDS SUMMARY | 2024-03-13 11:15 | XMS_ITS | Encounter Summary ---
Author Organization [facility] Address [address] [place] [address]. [place] [address] [place] [address] Care Team Providers Care Insulation Technician Name Role Phone Unavailable Primary Care Provider Unavailabl e Encounter Details Date Type Department Care Team (Late st Contact Info) Description 04/06/2017 Abstract [facility] Conversion Md, Generic Conversion, Social History Tobacco [...] st Contact Info) Description 04/03/2024 1:00 PM LEAD PASTOR Office [facility] Mult[facility]pecialty Care - [facility] [address] [place] [address] Moriah Hammond NP 3 [facility] [address] [place] [address] documented as of this encounter Visit Diagnoses Not on filedocumented in this encounter
--- OUTSIDE RECORDS SUMMARY | 2024-03-13 11:16 | XMS_ITS | Encounter Summary ---
Author Organization [facility] Address [address] [place] [address]. [place] [address] [place] [address] Care Team Providers Care Solar Panel Installer Name Role Phone Unavailable Primary Care Provider Unavailabl e Encounter Details Date Type Department Care Team (Late st Contact Info) Description 10/26/2016 Abstract [facility] Conversion Md, Generic Conversion, Social History [...] st Contact Info) Description 04/03/2024 1:00 PM DECATIZER Office Visit [facility] Medical Group Multispecialty Care - [facility] [address] [place] [address] Moriah Hammond NP 3 [facility] [address] [place] [address] documented as of this encounter Visit Diagnoses Not on filedocumented in this encounter
--- OUTSIDE RECORDS SUMMARY | 2024-03-13 11:16 | XMS_ITS | Encounter Summary ---
Author Organization [facility] Address [address] [place] [address]. [place] [address] [place] [address] Care Team Providers Care Fine Arts Chair Name Role Phone Unavailable Primary Care Provider Unavailabl e Encounter Details Date Type Department Care Team (Late st Contact Info) Description 09/24/2016 Abstract [facility] Conversion Md, Generic Conversion, Social [...] Sign Reading Time Taken Comments Blood Pressure 128/70 09/24/2016 10:07 AM CDT Pulse 80 09/24/2016 10:07 AM CDT Temperature - - Respiratory Rate - - Oxygen Saturation - - Inhaled Oxygen Concentration - - Weight 88.7 kg (195 lb 9 oz) 09/24/2016 10:07 AM CDT Height 160 cm (5' 3 ) 09/24/2016 10:07 AM CDT Body Mass Index 34.64 09/24/2016 10:07 AM CDT documented in this encounter Progress Notes * Linda Leon NP - 09/24/2016 12:00 AM CDT CHIEF COMPLAINT The Chief Complaint is: New pt comp exam, also wants to know if we can call and get MRI results from [facility]. HISTORY OF PRESENT ILLNESS Patient comes in for new patient exam. reports he has ongoing back pain, had an MRI done at [facility] and would like to review the results. He had surgery on T1-T3 in 2004, now having increased low back pain. also has restless leg syndrome that he takes amitriptyline for. CURRENT MEDICATION ? Amitriptyline HCl 50 MG Tablet 1 Every bedtime 0 days, 0 refills ? Hydrocodone-Acetaminophen 10-325 MG Tablet As directed 1tablet by mouth q6 hrs as needed, 0 days,0 refills ? MetFORMIN HCl ER 500 MG Tablet Extended Release 24 Hour As directed 4 tablets by mouth daily withevening meal, 0 days, 0 refills ? Simvastatin 40 MG Tablet 1 Every bedtime 0 days, 0 refills PAST MEDICAL/SURGICAL HISTORY Surgical: ? Back surgery -2004 (T1-T3) rotator cuff repair (right)- 2013 bilateral elbow surgery-2013 ? Decompression of median nerve at carpal tunnel -2013 surgery SOCIAL HISTORY Social history reviewed. Diet: Diet provides sufficient dairy products. Behavioral: No caffeine use and smoking status: Never smoker. Alcohol: Alcohol use socially. Drug Use: Drug use. Habits: Good exercise habits bicycle-daily, walking, swimming. ALLERGIES ? No Known Allergies FAMILY HISTORY Family history reviewed Diabetes mellitus mother-type 2 PHYSICAL FINDINGS ? Vitals taken 09/24/2016 10:07 am BP-Sitting R 128/70 mmHg BP Cuff Size Regular Pulse Rate-Sitting 80 bpm Pulse Rhythm Regular Respiration Rate 20 per min Temp-Oral 97.9 F Height 63 in Weight 195 lbs 9 oz Body Mass Index 34.6 kg/m2 Body Surface Area 1.92 m2 Oxygen Saturation 98 % General Appearance: ?? Well developed. ?? Well nourished. ?? In no acute distress. Neck: Suppleness: ?? Neck demonstrated no decrease in suppleness. Thyroid: ?? Showed no abnormalities. Eyes: General/bilateral: Pupils: ?? PERRLA. Ears: General/bilateral: External Auditory Canal: ?? External auditory meatus normal. Tympanic Membrane: ?? Normal. Pharynx: Oropharynx: ?? Normal. ?? Tonsils showed no abnormalities. Lymph Nodes: ?? Supraclavicular lymph nodes were not enlarged. Lungs: ?? Normal breath sounds/voice sounds. Cardiovascular: Heart Rate And Rhythm: ?? Normal. Musculoskeletal System: General/bilateral: ?? Overall findings were normal left hand, 3rd digit-unable to bend completely towards palm. no weakness of either hand. Skin: ?? General appearance was normal. ASSESSMENT 1.) Restless leg syndrome 2.) Diabetes mellitus, type 2 3.) Hyperlipidemia 4.) Low back pain PLAN ? Low back pain Naproxen 500 MG TABS, Twice a Day, 30 days, 0 refills 1.) Instructed pt to sign medical release forms at [facility] and have MRI results faxed over to our office, will call pt to discuss results at that time and adjust treatment plan as needed. 2.) Offered naproxen for pain relief throughout the day, pt may take hydrocodone as needed at night. 3.) Call or return to the office in 1 year or sooner as needed. Routine labs: discussed, will obtain at the [facility] this fall Colonoscopy: n/a Tetanus vaccine: unknown Linda Turner APN Electronically signed by: Linda Turner Date: 09/24/2016 13:11 ER SCREEN OPERATOR documented in this encounter Plan of Treatment Upcoming Encounters Date Type Department Care Team (Late st Contact Info) Description 04/03/2024 1:00 PM SHAKER SCREEN OPERATOR Office Visit [facility] Multispecialty Care - [facility] [address] [facility] [place] [address] Moriah Hammond NP [address] [facility] [address] [place] [address] documented as of this encounter Visit Diagnoses Not on filedocumented in this encounter
--- OUTSIDE RECORDS SUMMARY | 2024-03-13 11:16 | XMS_ITS | Encounter Summary ---
Author Organization [facility] Address [address] [place] [address]. [place] [address] [place] [address] Care Team Providers Care Wine Cellar Stock Clerk Name Role Phone Unavailable Primary Care Provider Unavailabl e Encounter Details Date Type Department Care Team (Late st Contact Info) Description 11/09/2016 Abstract [facility] Conversion Md, Generic Conversion, Social [...] st Contact Info) Description 04/03/2024 1:00 PM PATROL AGENT Office Visit [facility] Medical [facility] Mult[facility]pecialty Care - [facility] [address] [place] [address] Moriah Hammond NP [address] [facility] [address] [place] [address] documented as of this encounter Visit Diagnoses Not on filedocumented in this encounter
--- OUTSIDE RECORDS SUMMARY | 2024-03-13 11:16 | XMS_ITS | Encounter Summary ---
Author Organization [facility] Address [address] [place] [address]. [place] [address] [place] [address] Care Team Providers Care Policy Value Calculator Name Role Phone Unavailable Primary Care Provider Unavailabl e Encounter Details Date Type Department Care Team (Late st Contact Info) Description 03/11/2017 Abstract [facility] Conversion Md, Generic Conversion, [...] Reading Time Taken Comments Blood Pressure 120/82 03/11/2017 9:14 AM BILINGUAL CUSTOMER SERVICE SPECIALIST Pulse 60 03/11/2017 9:14 AM BILINGUAL CUSTOMER SERVICE SPECIALIST Temperature - - Respiratory Rate - - Oxygen Saturation - - Inhaled Oxygen Concentration - - Weight 86.6 kg (191 lb) 03/11/2017 9:14 AM BILINGUAL CUSTOMER SERVICE SPECIALIST Height 160 cm (5' 3 ) 03/11/2017 9:14 AM BILINGUAL CUSTOMER SERVICE SPECIALIST Body Mass Index 33.83 03/11/2017 9:14 AM BILINGUAL CUSTOMER SERVICE SPECIALIST documented in this encounter Progress Notes * Linda Leon NP - 03/11/2017 12:00 AM CST CHIEF COMPLAINT The Chief Complaint is: Congestion/cough. HISTORY OF PRESENT ILLNESS Patient comes in with c/o nasal congestion and cough. reports he had cough, fevers, body ahces and chills in January that improved, now cough and nasal congestion has returned, along with SOB and wheezing at times. was using Afrin for nasal congestion without relief. denies sore throat or body aches. wears a CPAP at night for sleep apnea. needs refill of his metformin, simvastatin and amitriptyline. is tolerating these medications well,reports he is sleeping better at night with use of amitriptyline. has not gotten labs yet. reports he has an appointment with [facility] on 03/18 for back injections. reports he had these injectionsbefore that helped short term but then he had to start taking hydrocodone for pain control. CURRENT MEDICATION ? Amitriptyline HCl 50 MG Tablet 1 Every bedtime, 90 days, 0 refills ? MetFORMIN HCl ER 500 MG Tablet Extended Release 24 Hour 2 twice a day with meals-MUST OBTAIN LABSPRIOR TO NEXT REFILL., 30 days, 0 refills ? Simvastatin 40 MG Tablet 1 Every bedtime, 90 days, 0 refills ALLERGIES ? No Known Allergies PHYSICAL FINDINGS ? Vitals taken 03/11/2017 09:14 am BP-Sitting L 120/82 mmHg BP Cuff Size Large Pulse Rate-Sitting 60 bpm Respiration Rate 20 per min Temp-Oral 97.8 F Height 63 in Weight 191 lbs Body Mass Index 33.8 kg/m2 Body Surface Area 1.90 m2 Oxygen Saturation 96 % General Appearance: ?? Well developed. ?? Well nourished. ?? In no acute distress. Neck: Suppleness: ?? Neck demonstrated no decrease in suppleness. Eyes: General/bilateral: Pupils: ?? PERRLA. Ears: General/bilateral: External Auditory Canal: ?? External auditory meatus normal. Tympanic Membrane: ?? Normal. Nose: General/bilateral: Discharge: ?? No nasal discharge seen. Sinus Tenderness: ?? No sinus tenderness. Pharynx: Oropharynx: ?? Normal. Lymph Nodes: ?? Supraclavicular lymph nodes were not enlarged. Lungs: ? Wheezing was heard bilateral mild inspiratory- anterior and posterior. Cardiovascular: Heart Rate And Rhythm: ?? Normal. Musculoskeletal System: General/bilateral: ?? Overall findings were normal. Neurological: ?? Oriented to time, place, and person. Skin: ?? General appearance was normal. ASSESSMENT ? Hyperlipidemia ? Type 2 diabetes mellitus ? Low back pain - chronic ? Viral upper respiratory infection PLAN ? Other Amitriptyline HCl 50 MG tablet, 1 Every bedtime, 90 days, 1 refills MetFORMIN HCl 1000 MG tablet, Take 1 tablet twice daily, 90 days, 1 refills Simvastatin 40 MG tablet, 1 tablet every bedtime, 90 days, 1 refills Fluticasone Propionate 50 MCG/ACT bottle, 2 sprays each nostril once daily, 30 days, 2 refills ProAir HFA 108 (90 Base) MCG/ACT inhaler, 2 puffs every 4 - 6 hours as needed for wheezing, 30 days, 2 refills ? Type 2 diabetes mellitus without complications Lab: CBC w/Diff and Platelet Cnt Lab: Comp metabolic panel Lab: HEMOGLOBIN A1C Lab: Lipid profile 1.) Continue current medications, refills completed today. recommended pt use inhaler for wheezing as it occurs intermittently, symptoms likely viral in etiology. do not use Afrin, instead he can usenasal saline sprays OTC, rec. pt try fluticasone nasal spray daily for symptom relief. 2.) Obtain fasting labs jeanmarie, medications will be adjusted as needed upon receiving results, pt will be notified of results and any med changes. 3.) Explained that pt will need to get hydrocodone script filled by [facility] in the future as I cannot refill that script. 4.) Follow up in 6 months for routine office visit, lab orders and medication refills. pt called, states he needs refill on hydrocodone. last refill completed on 02/08. per my contractI cannot refill, will see if script can be refilled by until pt sees pain management on 03/18. Linda Turner APN Electronically signed by: Linda Turner Date: 03/12/2017 19:40 Electronically approved by: Darwin Cooper MD Date: 03/14/17 07:53 NGUAL CUSTOMER SERVICE SPECIALIST documented in this encounter Plan of Treatment Upcoming Encounters Date Type Department Care Team (Late st Contact Info) Description 04/03/2024 1:00 PM BILINGUAL CUSTOMER SERVICE SPECIALIST Office Visit [facility] Medical [facility] Multispecialty Care - [facility] [address] [facility] [facility] [address] [place] [address] Moriah Hammond NP [address] [facility] [address] [place] [address] documented as of this encounter Visit Diagnoses Not on filedocumented in this encounter
--- OUTSIDE RECORDS SUMMARY | 2024-03-13 11:16 | XMS_ITS | Encounter Summary ---
Author Organization [facility] Address [address] [place] [address]. [place] [address] [place] [address] Care Team Providers Care Sports Bookmaker Name Role Phone Unavailable Primary Care Provider Unavailabl e Encounter Details Date Type Department Care Team (Late st Contact Info) Description 04/05/2017 Abstract [facility] Conversion Darwin Cooper MD [address] [place] [address] Social History Tobacco Use Types Packs/Day Years Used Date Smoking Tobacco: Never Assessed Sex and Gender Information Value Date Recorded Sex Assigned at Not on file Legal Sex Male 7:39 PM CDT Gender Identity Not on file Sexual Orientation Not on file documented as of this encounter Progress Notes * Darwin Cooper MD - 04/05/2017 12:00 AM CST PLAN ? Other Hydrocodone-Acetaminophen 10-325 MG tablet, 1 q6h prn pain., 15 days, 0 refills Darwin Cooper MD Electronically signed by: Darwin Cooper MD Date: 04/05/2017 12:34 Electronically approved by: Darwin Cooper MD Date: 04/05/17 12:34 D INSPECTOR documented in this encounter Plan of Treatment Upcoming Encounters Date Type Department Care Team (Late st Contact Info) Description 04/03/2024 1:00 PM FIELD INSPECTOR Office Visit [facility] Medical [facility] Multispecialty Care - [facility] [address] [facility] [place] [address] Moriah Hammond NP [address] [facility] [address] [place] [address] documented as of this encounter Visit Diagnoses Not on filedocumented in this encounter
--- OUTSIDE RECORDS SUMMARY | 2024-03-13 11:16 | XMS_ITS | Encounter Summary ---
Author Organization [facility] Address [address] [place] [address]. [place] [address] [place] [address] Care Team Providers Care Gluing Machine Operator Name Role Phone Unavailable Primary Care Provider Unavailabl e Encounter Details Date Type Department Care Team (Late st Contact Info) Description 09/22/2016 Abstract [facility] Conversion Md, Generic Conversion, Social [...] st Contact Info) Description 04/03/2024 1:00 PM INDUSTRIAL TECHNOLOGY EDUCATION TEACHER Office Visit [facility] Medical [facility] Multispecialty Care - [facility] [address] [place] [address] Moriah Hammond NP [address] [facility] [address] [place] [address] documented as of this encounter Visit Diagnoses Not on filedocumented in this encounter
--- OUTSIDE RECORDS SUMMARY | 2024-03-13 11:16 | XMS_ITS | Encounter Summary ---
Author Organization [facility] Address [address] [place] [address]. [place] [address] [place] [address] Care Team Providers Care Superintendent Refuse Disposal Name Role Phone Unavailable Primary Care Provider Unavailabl e Encounter Details Date Type Department Care Team (Late st Contact Info) Description 09/24/2016 Abstract [facility] Conversion Md, Generic Conversion, Social History [...] st Contact Info) Description 04/03/2024 1:00 PM DENTAL LABORATORY TECHNICIAN APPRENTICE Office Visit [facility] Multispecialty Care - [facility] [address] [place] [address] Moriah Hammond NP [address] [facility] [address] [place] [address] documented as of this encounter Visit Diagnoses Not on filedocumented in this encounter
--- OUTSIDE RECORDS SUMMARY | 2024-03-13 11:16 | XMS_ITS | Encounter Summary ---
Author Organization [facility] Address [address] [place] [address]. [place] [address] [place] [address] Care Team Providers Care Transfer Table Operator Name Role Phone Unavailable Primary Care Provider Unavailabl e Encounter Details Date Type Department Care Team (Late st Contact Info) Description 03/11/2017 Abstract [facility] Conversion Md, Generic Conversion, Social History [...] st Contact Info) Description 04/03/2024 1:00 PM REAM CUTTER Office Visit [facility] Medical [facility] Multispecialty Care - [facility] [address] [place] [address] Moriah Hammond NP [address] [facility] [address] [place] [address] documented as of this encounter Visit Diagnoses Not on filedocumented in this encounter
--- OUTSIDE RECORDS SUMMARY | 2024-03-13 11:16 | XMS_ITS | Encounter Summary ---
Author Organization [facility] Address [address] [place] [address]. [place] [address] [place] [address] Care Team Providers Care Fire Extinguisher Installer Name Role Phone Unavailable Primary Care Provider Unavailabl e Encounter Details Date Type Department Care Team (Late st Contact Info) Description 01/07/2017 Abstract [facility] Conversion Linda Turner NP [address] [place] [address] Social History Tobacco Use Types Packs/Day Years Used Date Smoking Tobacco: Never Assessed Sex and Gender Information Value Date Recorded Sex Assigned at Not on file Legal Sex Male 7:39 PM CDT Gender Identity Not on file Sexual Orientation Not on file documented as of this encounter Progress Notes * Linda Leon NP - 01/07/2017 12:00 AM CST PLAN ? OTHER Specialist Appt please refer pt to pain management for chronic back pain, needs further management of medications. thank you! Amitriptyline HCl 50 MG TABS, 1 Every bedtime, 90 days, 0 refills MetFORMIN HCl ER 500 MG TB24, 2 twice a day with meals-MUST OBTAIN LABS PRIOR TO NEXT REFILL., 30 days, 0 refills patient called needing refills on his amitriptyline, hydrocodone and metformin. will send in scripts today. pt must obtain DM labs prior to next refill so dose can be adjusted as needed. 02/08- pt called regarding prescriptions, I am unable to fill his hydrocodone per my contract. request has been sent to regarding refill. I will refer pt to pain management for management of his chronic back pain. Linda Turner APN Electronically signed by: Linda Turner Date: 02/08/2017 13:36 Electronically approved by: Darwin Cooper MD Date: 02/08/17 14:36 SPLICER documented in this encounter Miscellaneous Notes * Letter - Linda Leon NP - 01/07/2017 12:00 AM CST 02-15-2017 Cam Hernandez [address] [place] [address] Dear Cam, During your recent visit to [facility], Linda Turner APN, recommended a referral to a specialist. [facility]'s office have made several attempts to contact you withno response. Please call their office at [phone] If you do not contact the specialist we will assume you do not wish to pursue the appointment and close the request . If you have any questions please contact our office at [phone] ext [phone]. Respectfully yours, Referral Department [facility] SPLICER documented in this encounter Plan of Treatment Upcoming Encounters Date Type Department Care Team (Late st Contact Info) Description 04/03/2024 1:00 PM BAND SPLICER Office Visit [facility] Medical [facility] Multispecialty Care - [facility] [address] [place] [phone] Moriah Hammond NP [address] [facility] [address] [place] [address] documented as of this encounter Visit Diagnoses Not on filedocumented in this encounter
--- OUTSIDE RECORDS SUMMARY | 2024-03-13 11:16 | XMS_ITS | Encounter Summary ---
Author Organization [facility] Address [address] [place] [address]. [place] [address] [place] [address] Care Team Providers Care Manager Support Name Role Phone Unavailable Primary Care Provider Unavailabl e Encounter Details Date Type Department Care Team (Late st Contact Info) Description 03/25/2017 Abstract [facility] Conversion Md, Generic Conversion, Social [...] st Contact Info) Description 04/03/2024 1:00 PM COUNTY SURVEYOR Office Visit [facility] Medical Group Multispecialty Care - [facility] [address] [place] [address] Moriah Hammond NP [address] [facility] [address] [place] [address] documented as of this encounter Visit Diagnoses Not on filedocumented in this encounter
--- OUTSIDE RECORDS SUMMARY | 2024-03-13 11:16 | XMS_ITS | Encounter Summary ---
Author Organization [facility] Address [address] [place] [address]. [place] [address] [place] [address] Care Team Providers Care Set Up Operator Tool Name Role Phone Unavailable Primary Care Provider Unavailabl e Encounter Details Date Type Department Care Team (Late st Contact Info) Description 11/09/2016 Abstract [facility] Conversion Md, Generic Conversion, Social [...] Sign Reading Time Taken Comments Blood Pressure 126/80 11/09/2016 10:19 AM CDT Pulse 98 11/09/2016 10:19 AM CDT Temperature - - Respiratory Rate - - Oxygen Saturation - - Inhaled Oxygen Concentration - - Weight 90.8 kg (200 lb 3 oz) 11/09/2016 10:19 AM CDT Height 160 cm (5' 3 ) 11/09/2016 10:19 AM CDT Body Mass Index 35.46 11/09/2016 10:19 AM CDT documented in this encounter Progress Notes * Linda Leon NP - 11/09/2016 12:00 AM CDT CHIEF COMPLAINT The Chief Complaint is: MRI results, med refill. HISTORY OF PRESENT ILLNESS Patient comes in to discuss MRI results and medication refills. continues to have stiffness of bothhands, specifically the 3rd finger (right) and 5th finger (left). has been taking hydrocodone 2-3x/daily, needs refill today. reports improvement in sleep and restless legs at night with Amitriptyline. CURRENT MEDICATION ? Amitriptyline HCl 50 MG Tablet 1 Every bedtime, 90 days, 0 refills ? Hydrocodone-Acetaminophen 10-325 MG Tablet As directed 1tablet by mouth q6 hrs as needed, 30 days, 0 refills ? MetFORMIN HCl ER 500 MG Tablet Extended Release 24 Hour 2 twice a day with meals, 30 days, 2 refills ? Simvastatin 40 MG Tablet 1 Every bedtime, 90 days, 0 refills ALLERGIES ? No Known Allergies PHYSICAL FINDINGS ? Vitals taken 11/09/2016 10:19 am BP-Sitting L 126/80 mmHg BP Cuff Size Large Pulse Rate-Sitting 98 bpm Pulse Rhythm Regular Respiration Rate 24 per min Temp-Oral 98.1 F Height 63 in Weight 200 lbs 3 oz Body Mass Index 35.5 kg/m2 Body Surface Area 1.93 m2 Oxygen Saturation 99 % General Appearance: ?? Well developed. ?? Well nourished. ?? In no acute distress. Neck: Suppleness: ?? Neck demonstrated no decrease in suppleness. Thyroid: ?? Showed no abnormalities. Eyes: General/bilateral: Pupils: ?? PERRLA. Ears: General/bilateral: External Auditory Canal: ?? External auditory meatus normal. Tympanic Membrane: ?? Normal. Pharynx: Oropharynx: ?? Normal. Lymph Nodes: ?? Supraclavicular lymph nodes were not enlarged. Lungs: ?? Normal breath sounds/voice sounds. Cardiovascular: Heart Rate And Rhythm: ?? Normal. Musculoskeletal System: General/bilateral: ?? Overall findings were normal stiffening noted of 3rd finger. Neurological: ?? Oriented to time, place, and person. Skin: ?? General appearance was normal. ASSESSMENT 1.) Type 2 diabetes mellitus 2.) Hyperlipidemia 3.) Restless leg syndrome 4.) Joint pain, bilateral hands 5.) Low back pain, chronic PLAN ? Type 2 diabetes mellitus without complications Lab: CBC w/Diff and Platelet Cnt Lab: Comp metabolic panel Lab: SED RATE Lab: Lipid profile Lab: RHEUMATOID FACTOR Lab: TSH with reflex Free T4 ? Low back pain Hydrocodone-Acetaminophen 10-325 MG TABS, As directed 1 tablet by mouth q6 hrs as needed, 30 days, 0 refills 1.) Patient due for hydrocodone, will refill today. 2.) Obtain fasting routine labs, will notify patient of results. 3.) Continue current medications. 4.) Call or return to office as needed or with any additional questions or concerns. Linda Turner APN Electronically signed by: Linda Turner Date: 11/09/2016 16:13 Electronically approved by: Ari Cardenas MD Date: 11/09/16 16:17 LE ARCHITECT documented in this encounter Plan of Treatment Upcoming Encounters Date Type Department Care Team (Late st Contact Info) Description 04/03/2024 1:00 PM ORACLE ARCHITECT Office Visit [facility] Medical Group Multispecialty Care - [facility] [address] [place] [phone] Moriah Hammond NP [address] [facility] [address] [place] [address] documented as of this encounter Visit Diagnoses Not on filedocumented in this encounter
--- OUTSIDE RECORDS SUMMARY | 2024-03-13 11:16 | XMS_ITS | Encounter Summary ---
Author Organization [facility] Address [address] [place] [address]. [place] [address] [place] [address] Care Team Providers Care Unit Assistant Name Role Phone Unavailable Primary Care Provider Unavailabl e Encounter Details Date Type Department Care Team (Late st Contact Info) Description 03/25/2017 Abstract [facility] Conversion Md, Generic Conversion, Social History [...] Sign Reading Time Taken Comments Blood Pressure 120/80 03/25/2017 10:02 AM ARCHERY INSTRUCTOR Pulse 78 03/25/2017 10:02 AM ARCHERY INSTRUCTOR Temperature - - Respiratory Rate - - Oxygen Saturation - - Inhaled Oxygen Concentration - - Weight 87.1 kg (192 lb) 03/25/2017 10:02 AM ARCHERY INSTRUCTOR Height 160 cm (5' 3 ) 03/25/2017 10:02 AM ARCHERY INSTRUCTOR Body Mass Index 34.01 03/25/2017 10:02 AM ARCHERY INSTRUCTOR documented in this encounter Progress Notes * Linda Leon NP - 03/25/2017 12:00 AM CST CHIEF COMPLAINT The Chief Complaint is: Sore throat/ear pain. HISTORY OF PRESENT ILLNESS Cam Hernandez is a 47 year old male. ?? Date of last menstruation was unknown ?? Menopause has not occurred Patient comes in with c/o sore throat and ear pain x3 days, pain worse with swallowing. would like to discuss pain management. pt reports they did not want to do injections as they have tried them in the past without success. pt has been without his pain medication x1 week and needs a refill. reports he admitted to smoking marijuana at [facility] and they refused to prescribe oral medications. has been having worsening spasms of the right leg. CURRENT MEDICATION ? Amitriptyline HCl 50MG Oral Tablet 1 Every bedtime, 90 days, 1 refills ? Fluticasone Propionate 50MCG/ACT Nasal Suspension 2 sprays each nostril once daily, 30 days, 2 refills ? MetFORMIN HCl 1000MG Oral Tablet Take 1 tablet twice daily, 90 days, 1 refills ? MetFORMIN HCl ER 500 MG Tablet Extended Release 24 Hour 2 twice a day with meals-MUST OBTAIN LABSPRIOR TO NEXT REFILL., 30 days, 0 refills ? ProAir HFA 108 (90 Base)MCG/ACT Inhalation Aerosol Solution 2 puffs every 4 - 6 hours as needed for wheezing, 30 days, 2 refills ? Simvastatin 40MG Oral Tablet 1 tablet every bedtime, 90 days, 1 refills SOCIAL HISTORY Behavioral: Smoking status: Current everyday smoker. ALLERGIES ? No Known Allergies REVIEW OF SYSTEMS Systemic: Not feeling tired or poorly. No fever and no chills. Head: No headache and no sinus pain. Neck: No swollen glands in the neck. Eyes: No eye symptoms. Otolaryngeal: Earache and sore throat. Cardiovascular: No chest pain or discomfort. Pulmonary: No pulmonary symptoms. Gastrointestinal: No gastrointestinal symptoms. Musculoskeletal: No myalgias and no generalized. No arthralgias. Neurological: No vertigo. Skin: No rash. PHYSICAL FINDINGS ? Vitals taken 03/25/2017 10:02 am BP-Sitting L 120/80 mmHg BP Cuff Size Regular Pulse Rate-Sitting 78 bpm Respiration Rate 20 per min Temp-Oral 98.1 F Height 63 in Weight 192 lbs Body Mass Index 34.0 kg/m2 Body Surface Area 1.90 m2 Oxygen Saturation 98 % General Appearance: ?? Well hydrated. ?? In no acute distress. Neck: Suppleness: ?? Neck demonstrated no decrease in suppleness. Eyes: General/bilateral: Extraocular Movements: ?? Normal. Pupils: ?? PERRLA. External: ?? Conjunctiva exhibited no abnormalities. Ears: General/bilateral: External Auditory Canal: ?? No external auditory canal purulent discharge. ?? External auditory meatus normal. Tympanic Membrane: ?? Normal. Nose: General/bilateral: Discharge: ?? No nasal discharge seen. Cavity: ?? Nasal turbinate not swollen. Sinus Tenderness: ?? No sinus tenderness. Pharynx: Oropharynx: ? Abnormal erythematous, petechiae. Lymph Nodes: ? Cervical lymph nodes were enlarged anterior- mild swelling. ?? Normal. Lungs: ?? No wheezing was heard. Cardiovascular: Heart Rate And Rhythm: ?? Normal. Edema: ?? Not present. Musculoskeletal System: General/bilateral: ? Overall findings right leg- sporatic spasm x1 noted during exam when pt at rest. did not note any weakness or spasm of the right leg during ambulation or with movement. Skin: ?? Normal. TESTS Microbiology: Rapid Group Identification (Kit): Rapid group identification for streptococcus group A beta hemolytic was positive. ASSESSMENT 1.) Streptococcal pharyngitis 2.) Restless leg syndrome 3.) Low back pain, chronic THERAPY ? Diet. ? Regular exercise. ? Continue current medication. PLAN ? Other Specialist Appt please send patient to pain management, has seen [facility] and did not receive pain medication. would like to see another MD. thank you! Azithromycin 250 MG tablet, Take 2 tablets on day 1, then 1 tablet for days 2-5, 5 days, 0 refills ? Follow-up visit - 6 months as previously scheduled Will attempt to refer pt to another pain management clinic; however it was reiterated to pt that hewill need to stop smoking marijuana in order to receive ongoing treatment of his pain. Once appt ismade we will fill his pain medication this one time until he gets in to see pain management. pt verbalized understanding of this plan. Linda Turner APN Electronically signed by: Linda Turner Date: 03/25/2017 15:01 Electronically approved by: Darwin Cooper MD Date: 03/25/17 16:27 ERY INSTRUCTOR documented in this encounter Plan of Treatment Upcoming Encounters Date Type Department Care Team (Late st Contact Info) Description 04/03/2024 1:00 PM ARCHERY INSTRUCTOR Office Visit [facility] Multispecialty Care - [facility] [address] [facility] [place] [phone] Moriah Hammond NP 3 [facility] [address] [place] [id number] documented as of this encounter Visit Diagnoses Not on filedocumented in this encounter
--- OUTSIDE RECORDS SUMMARY | 2024-03-13 11:16 | XMS_ITS | Encounter Summary ---
Author Organization [facility] Address [address] [place] [address]. [place] [address] [place] [address] Care Team Providers Care Interior Systems Carpenter Name Role Phone Unavailable Primary Care Provider Unavailabl e Encounter Details Date Type Department Care Team (Late st Contact Info) Description 01/14/2000 Abstract [facility] [address] [place] [address] , Generic Conversion, Social History Tobacco Use [...] st Contact Info) Description 04/03/2024 1:00 PM STONEWORKING BELT SANDER Office Visit [facility] Multispecialty Care - [facility] [address] [facility], [address] [place] [phone] Moriah Hammond NP 3 [facility] [address] [place] [id number] documented as of this encounter Visit Diagnoses Not on filedocumented in this encounter
--- OUTSIDE RECORDS SUMMARY | 2024-03-13 11:16 | XMS_ITS | Encounter Summary ---
Author Organization [facility] Address [address] [place] [address]. [place] [address] [place] [address] Care Team Providers Care Construction Scheduler Name Role Phone Unavailable Primary Care Provider Unavailabl e Encounter Details Date Type Department Care Team (Late st Contact Info) Description 10/11/2016 Abstract [facility] Conversion Md, Generic Conversion, Social History Tobacco [...] Contact Info) Description 04/03/2024 1:00 PM FIELD ARTILLERY TARGETING TECHNICIAN Office Visit [facility] Multispecialty Care - [facility] [address] [facility] [place] [address] Moriah Hammond NP 3 [facility] [address] [place] [address] documented as of this encounter Visit Diagnoses Not on filedocumented in this encounter
--- OUTSIDE RECORDS SUMMARY | 2024-03-13 11:31 | XMS_ITS | Continuity of Care Document ---
Author Organization [facility] Address [address] [place] [address] [place] [address] Phone Care Team Providers Care Chicken Hatchery Helper Name Role Phone Rodriguez OD, Juan Carlos Unavailable Unavailable Procedures Procedure Date Office/outpatient Visit, [facility] Advance Directives Directive Yes / No Effective Date File Name No Information Encounters Encounter Description Practice Location Reason(s) For Visit Diagnoses Date Provider Providers Copied on Encounter Office/outpat ient Visit, [facility], [address] [place] [address] [address], [place], [place], [id number], tel:[phone] [facility] No Information 1-200 7 Rodriguez OD Juan Carlos. [address] , [address], [place], [address], [place]. tel:[phone] Referring Provider: Roman Hilton MD F, [address] [place], [address]. tel:[phone] Family History Family Member Type Diagnosis Age At Onset No Information Payers Payer name Insurance type Covered alliance party ID Authoriza tion(s) Medicare [facility] [id number] Social History Type Description Quantity Date Captured [...]
== END 2024-03-06 11:14 | disposition home or self-care (01) ==
PROVIDERS: PCP Nurse Practitioner Family; Visit Provider Nurse Practitioner
DX: R10.13 Epigastric pain (principal); K21.9 Gastro-esophageal reflux disease without esophagitis; R68.81 Early satiety; K75.9 Inflammatory liver disease, unspecified; E11.9 Type 2 diabetes mellitus without complications
CPT/HCPCS: 36415; 80053; 80074; 82150; 82784; 83013; 83036; 83690; 85027; 85652; 86140; 86364

== ENCOUNTER 2024-10-22 08:15 | Emergency (ER) | payer MEDICARE, SELFPAY ==
--- OUTSIDE RECORDS SUMMARY | 2006-12-29 03:02 | XMS_ITS | Continuity of Care Document ---
Author Organization [facility] Address [address] [place] [address] [place] [address] Phone Care Team Providers Care Accounts Receivable Bookkeeper Name Role Phone Rodriguez OD, Juan Carlos Unavailable Unavailable Procedures Procedure Date Office/outpatient Visit, [facility] Advance Directives Directive Yes / No Effective Date File Name No Information Encounters Encounter Description Practice Location Reason(s) For Visit Diagnoses Date Provider Providers Copied on Encounter Office/outpat ient Visit, [facility], [address] [place] [address] [address], [place], [place], [id number], tel:[phone] [facility] No Information 1-200 7 Rodriguez OD Juan Carlos. [address] , [address], [place], [address], [place]. tel:[phone] Referring Provider: Roman Hilton MD F, [address] [place], [address]. tel:[phone] Family History Family Member Type Diagnosis Age At Onset No Information Payers Payer name Insurance type Covered green party ID Authoriza tion(s) Medicare [facility] [id number] Social History Type Description Quantity Date Captured Comments Sex Male Smoking Status No Information Chief Complaint And Reason For Visit No Information Reason For Referral Reason For Referral No Information History Of Present Illness Encounter Date Complaint History Of Prese nt Illness No Information Functional Status Date Functional Assessmen t No Information Instructions Date Instruction Additional Infor mation No Information Assessments Type Assessment Date No Information Patient Care Teams Name Effective Dates (start - stop) Status Members No Information
--- OUTSIDE RECORDS SUMMARY | 2006-12-29 03:02 | XMS_ITS | Continuity of Care Document ---
Author Organization [facility] Address [address] [place] [address] [place] [address] Phone Care Team Providers Care Software Developer Manager Name Role Phone Rodriguez OD, Juan Carlos Unavailable Unavailable Procedures Procedure Date Office/outpatient Visit, [facility] Advance Directives Directive Yes / No Effective Date File Name No Information Encounters Encounter Description Practice Location Reason(s) For Visit Diagnoses Date Provider Providers Copied on Encounter Office/outpat ient Visit, [facility], [address] [place] [address] [address], [place], [place], [id number], tel:[phone] [facility] No Information 1-200 7 Rodriguez OD Juan Carlos. [address] , [address], [place], [address], [place]. tel:[phone] Referring Provider: Roman Hilton MD F, [address] [place], [address]. tel:[phone] Family History Family Member Type Diagnosis Age At Onset No Information Payers Payer name Insurance type Covered constitution party ID Authoriza tion(s) Medicare [facility] [id number] Social History Type Description Quantity Date Captured [...]
--- NOTE | ~2024-10-22 | XR_ITS ---
EXAMINATION: XR ankle RT min 3V, XR foot RT min 3V DATE: 10/22/2024 08:30 INDICATION: Twisting right ankle injury with one week of right heel pain post fall TECHNIQUE: 1. Anteroposterior, mortise, additional oblique and lateral view of the right ankle were obtained. 2. Dorsoplantar, two oblique and lateral views of the right foot were obtained. COMPARISON: None. FINDINGS: Alignment of the foot and ankle is normal. No acute fracture. Enthesophyte and heterotopic ossicle at the medial malleolus which could represent chronic enthesopathy or sequela of chronic deltoid ligament sprain. Additional moderate- sized Achilles and plantar calcaneal spurs. There is focal soft tissue posterior to the Achilles calcaneal spur. 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 No ankle joint effusion. IMPRESSION: 1. No acute osseous abnormality at the right foot or ankle. 2. Degenerative skeletal changes including mild polyarticular osteoarthritis in the mid and forefoot and moderate sized Achilles and plantar calcaneal spurs with soft tissue swelling about the former. 3. Heterotopic ossicle and small enthesophyte at the medial malleolus could be due to chronic enthesopathy or sequela of chronic deltoid ligament sprain. Reviewed, dictated and finalized at location A. IMPRESSION: 1. No acute osseous abnormality at the right foot or ankle. 2. Degenerative skeletal changes including mild polyarticular osteoarthritis in the mid and forefoot and moderate sized Achilles and plantar calcaneal spurs w ith soft tissue swelling about the former. 3. Heterotopic ossicle and small enthesophyte at the medial malleolus could be due to chronic enthesopathy or sequela of chronic deltoid ligament sprain.
[2024-10-22 08:23] VITALS: BP 132/70; PULSE 85; RESP 15; TEMP 36.7; O2SAT 100
--- OUTSIDE RECORDS SUMMARY | 2024-10-22 08:23 | XMS_ITS | Clinical Summary ---
Author Organization [facility] Address [address] [facility] [place] [address] Care Team Providers Care Pediatric Geneticist Name Role Phone Stacie Johnson MD Primary Care Provider [phone] Source Comments [facility] [employer],non-owned Affiliates and Associated Physician Practices is amultiple site organization consisting of ambulatory clinics and hospital sitesin [place], [place], [place] and [place]. This disclosure is being madepursuant to the Care Everywhere program and may not contain all information available regarding this patient. Last updated 17.[facility] [employer] Allergies No known active allergies Medications * Be aware that medications may not be up to date on this document. Alwaysverify current medications with the patient. HYDROcodone-hossein taminophen (NORCO) 10-325 MG tablet TK 1 T [...] at Not on file Legal Sex Male 8:58 AM CDT Gender Identity Not on file Sexual Orientation Not on file Last Filed Vital Signs Vital Sign Reading Time Taken Comments Blood Pressure 137/66 10/23/2018 3:28 PM CDT Pulse 82 10/23/2018 3:28 PM CDT Temperature - - Respiratory Rate - - Oxygen Saturation - - Inhaled Oxygen Concentration - - Weight 86.2 kg (190 lb) 10/23/2018 3:28 PM CDT Height 157.5 cm (5' 2) 10/23/2018 3:28 PM CDT Body Mass Index [...] COLON CA SCREENING 1970 LIPID TESTING 1970 HIV SCREENING 1985 HEPATITIS C SCREENING 03/11/1988 DTAP/TDAP/TD VACCINES (1 - Tdap) 1989 HEPATITIS B VACCINE (1 of 3 - 19+ 3-dose series) 1989 SCREENING FOR DIABETES 10/23/2018 PNEUMOCOCCAL VACCINE 50+ (1 of 1 - PCV) 2020 ZOSTER VACCINE (1 of 2) 2020 COVID-19 VACCINE (1 - 2023-2 5 season) 2023 DEPRESSION SCREENING 02/29/2024 INFLUENZA VACCINE (#1) 2024 HIB VACCINE Aged Out No longer eligi ble based on patient's age to complete this topic HPV VACCINE Aged Out No longer eligi ble based on patient's age to complete this topic MENINGOCOCCAL (Group B) VACC INE SHARED DECISION-MAKING Aged Out No longer eligibl e based on patient's age to complete this topic MENINGOCOCCAL GROUPS A/C/Y/W VACCINE Aged Out No longer eligible b ased on patient's age to complete this topic Insurance [place] [address] [place] [address] [employer] Care Teams Pediatric Geneticist Relationship Specialty Start Date End Date Stacie Johnson MD PCP - General 11/01/18
[2024-10-22] MEDS: IBUPROFEN 400 MG TABLET PO (09:20)
[2024-10-22 09:21] VITALS: BP 118/90; PULSE 84; RESP 17; O2SAT 99
--- OUTSIDE RECORDS SUMMARY | 2024-10-22 09:25 | XMS_ITS | Clinical Summary ---
Author Organization [facility] Address [address] [place] [address] Care Team Providers Care Media Traffic Manager Name Role Phone Stacie Johnson MD Primary Care Provider [phone] [facility] [employer],non-owned Affiliates and Associated Physician Practices is amultiple site organization consisting of ambulatory clinics and hospital sitesin [place], [place], [place] and [place]. This disclosure is being madepursuant to the Care Everywhere program and may not contain all information available regarding this patient. Last updated 17.[facility] [employer] Allergies No known active allergies Medications * [...] this topic Insurance [place] [address] [place] [address] [employer] Care Teams Media Traffic Manager Relationship Specialty Start Date End Date Stacie Johnson MD PCP - General 11/01/18
--- NOTE | 2024-10-22 14:16 | ED.LOWEXIN ---
HPI - Extremity Injury (Lower) General Chief Complaint: Extremity Injury, Lower Stated Complaint: twisted R ankle Time Seen by Provider: 10/22/24 08:19 History of Present Illness HPI Narrative: Patient injured his right foot about a week ago and since then has had some pain with walking on it, pain is mostly at the heel. Related Data Home Medications ?Medication ?Instructions ?Recorded ?Confirmed ?Last Taken ?Type amitriptyline 50 mg tablet 50 mg PO QHS 12/09/23 03/09/24 Unknown History gabapentin 300 mg capsule 300 mg PO DAILY 12/09/23 03/09/24 Unknown History hydrocodone 10 mg-acetaminophen 1 tablet PO QHS PRN 12/09/23 03/09/24 Unknown History 300 mg tablet Allergies Allergy/AdvReac Type Severity Reaction Status Date / Time No Known Allergies Allergy Verified 10/22/24 08:33 Review of Systems Review of Systems: All systems reviewed & are unremarkable except as noted in HPI and below PMFSH Past Medical History Medical History Chronic GERD Hepatitis Hyperlipidemia Hypertension Obesity DIANDRA (obstructive sleep apnea) Surgical History Surgical History H/O inguinal hernia repair 12/17 History of back surgery History of esophagogastroduodenoscopy (EGD) 11/07/19 History of hernia repair History of left inguinal hernia repair Open recurrent left inguinal hernia repair with onlay mesh (Marek repair). 06/02/23 SAW History of orthopedic surgery Family History Family History Sibling Family history of thyroid disease Family history of diabetes mellitus in first degree relative Father Family history of diabetes mellitus in first degree relative Mother Family history of thyroid disease Social History Social History Smoking status: Never smoker Second hand tobacco smoke exposure: No Alcohol intake: never Substance use: current Substance use type: marijuana Other substance usage details: MEDICAL MARIJUANA CARD- FOR SLEEP AT NIGHT Last use: DAILY MARIJUANA USE Do You Feel Safe in your Home?: Yes Lack of Transportation: No Lack of Food: Never True Current Housing: I Do Not Have Housing Concerned About Future Housing: No Difficulty Paying Gas/Electric Bills: No Difficulty Paying for Meds: No Currently Unemployed: No Education: High School Diploma/GED Difficulty w/ Childcare or Family Care: No Living arrangements: alone Gender identity (if verbalized by the patient): Male Spiritual care concerns: No Exam Narrative: EXAMINATION OF ORGAN SYSTEMS/BODY AREAS: Constitutional: Vital signs per nursing GENERAL:[No acute distress, non-toxic appearing.] HEAD: Normal with no signs of head trauma. EYES: EOMI, conjunctiva normal ENT: Hearing grossly intact LUNGS: Nonlabored breathing. HEART: [Regular rate and rhythm] ABD: [Soft], [nontender to palpation] EXT: Normal range of motion, tenderness to palpation to the heel SKIN: [No rashes or lesions.] NEURO: [Alert and oriented x 3. No gross focal sensory or strength deficits.] PSYCH: Normal affect Course Vital Signs Vital signs: Vital Signs Temperature 98.1 F 10/22/24 08:23 Pulse Rate 85 10/22/24 08:23 Respiratory Rate 15 10/22/24 08:23 Blood Pressure 132/70 10/22/24 08:23 Pulse Oximetry 100 10/22/24 08:23 Oxygen Delivery Room Air 10/22/24 08:23 Temperature 98.1 F 10/22/24 08:23 Pulse Rate 84 10/22/24 09:21 Respiratory Rate 17 10/22/24 09:21 Blood Pressure 118/90 10/22/24 09:21 Pulse Oximetry 99 10/22/24 09:21 Oxygen Delivery Room Air 10/22/24 08:23 MDM - Extremity Injury (Lower) MDM Narrative Medical decision making narrative: 54-year-old male presenting here with heel pain, he is neurovascularly intact, does have some heel tenderness, x-ray of foot showing enthesopathy and bone spurs. Discussed this with the patient, will trial course of steroids, have him follow-up with Podiatry with return precautions. Discharge Plan Discharge Clinical Impression: Bone spur of foot Patient Disposition: Home Condition: Stable Instructions: Heel Spur (ED) Additional Instructions: Please follow-up with the loan operations specialist, try the medications as prescribed, if you have any further issues you can come back to the hospital. Patient Language: Indonesian Prescriptions: New prednisone 20 mg tablet 40 mg PO DAILY 4 Days Qty: 8 0RF No Action amitriptyline 50 mg tablet 50 mg PO QHS gabapentin 300 mg capsule 300 mg PO DAILY hydrocodone-acetaminophen 10-300 mg tablet 1 tablet PO QHS PRN dapagliflozin propanediol [Farxiga] 10 mg tablet 10 mg PO DAILY Qty: 90 1RF (DME) pen needle, diabetic [BD Ness 2nd Gen Pen Needle] 32 gauge x 5/32 needle MISCELLANEOUS Qty: 100 1RF Rx Instructions: Use nightly with lantus Solostar metoclopramide HCl 5 mg tablet See Rx Instructions .ROUTE .COMPLEX Qty: 60 3RF Dose Instruction: TAKE 1 TABLET BY MOUTH PRIOR TO BREAKFAST AND AT BEDTIME Rx Instructions: TAKE 1 TABLET BY MOUTH PRIOR TO BREAKFAST AND AT BEDTIME insulin glargine [Lantus Solostar U-100 Insulin] 100 unit/mL (3 mL) insulin pen 20 unit subcut QAM Qty: 15 1RF dicyclomine 10 mg capsule See Rx Instructions .ROUTE .COMPLEX Qty: 120 3RF Dose Instruction: TAKE 1 CAPSULE BY MOUTH FOUR TIMES A DAY NEEDED FOR ABDOMINAL PAIN Rx Instructions: TAKE 1 CAPSULE BY MOUTH FOUR TIMES A DAY NEEDED FOR ABDOMINAL PAIN omeprazole 40 mg capsule,delayed release(DR/EC) See Rx Instructions .ROUTE .COMPLEX Qty: 60 3RF Dose Instruction: TAKE 1 CAPSULE BY MOUTH TWICE A DAY Rx Instructions: TAKE 1 CAPSULE BY MOUTH TWICE A DAY atorvastatin 40 mg tablet 40 mg PO HS Qty: 90 1RF lisinopril 40 mg tablet 40 mg PO DAILY Qty: 90 1RF tamsulosin 0.4 mg capsule 0.4 mg PO DAILY Qty: 90 1RF amlodipine 10 mg tablet 10 mg PO DAILY Qty: 90 1RF glipizide 10 mg tablet 10 mg PO DAILY Qty: 90 1RF Follow-up/Referrals: PHYSICIAN NOT ON STAFF,NONSTAFF [Primary Care Provider]
== END 2024-10-22 09:27 | disposition home or self-care (01) ==
LOC: ANHED 08:57
PROVIDERS: Emergency Provider Emergency Medicine
DX: M77.31 Calcaneal spur, right foot (principal); I10 Essential (primary) hypertension; E78.5 Hyperlipidemia, unspecified; E66.9 Obesity, unspecified; Z68.32 Body mass index [BMI] 32.0-32.9, adult; G47.33 Obstructive sleep apnea (adult) (pediatric); K21.9 Gastro-esophageal reflux disease without esophagitis; M19.071 Primary osteoarthritis, right ankle and foot
CPT/HCPCS: 73610; 73630; 99283; A9270; J7512